=== PATIENT | male | born 1955 | race Two or more races ===

== ENCOUNTER 2016-08-07 11:14 | Inpatient (IN) | payer MEDICARE ==
[~2016-08-07] VITALS: Ht 170.2 cm; Wt 89.8 kg
[~2016-08-07 11:14] MED LIST: AMLO5TAB2 PO; CEPH500T PO; HYDR12.53 PO; LISI10TA2 PO; METF-620 PO; NPH,100V SQ
[2016-08-07 12:20] VITALS: BP 150/66
[2016-08-07] MEDS ORDERED: LORAZEPAM 1 MG TABLET. PO PRN ×2 (12:45)
[2016-08-07] MEDS ORDERED: THIAMINE IM 200 MG/2 ML VIAL. IM ONE (13:00)
[2016-08-07] MEDS ORDERED: FUROSEMIDE 40 MG/4 ML VIAL. IVP ONE (13:00)
[2016-08-07] MEDS: POTASSIUM CHLORIDE 20 MEQ TABLET.ER. PO SCH ×2 (14:10→17:43)
[2016-08-07] MEDS: SPIRONOLACTONE 25 MG TABLET PO SCH (14:11)
[2016-08-07] MEDS: amLODIPine BESYLATE 5 MG TABLET PO SCH (14:11)
--- NOTE | 2016-08-07 14:56 | HP ---
ADMIT DATE: CHIEF COMPLAINT: Leg and penile swelling. HISTORY OF PRESENT ILLNESS: A 61-year-old male with a long history of alcohol abuse and mild diabetes. He was last seen in 11/2015 with edema and was prescribed Lasix to take alternate days. He ran out of this ____ has not refilled the drug. He has had increasing swelling in his legs in the last 3-4 weeks, and then penile swelling, making it very difficult to urinate for the last 1-2 weeks. He denies fever, chills, vomiting, dysuria or other specific complaints. PAST MEDICAL HISTORY: He had some toe amputations from diabetes and diffuse vascular disease. He had an ankle surgery as well. MEDICATIONS: Including glyburide, metformin, and amlodipine. ALLERGIES: No known allergies. SOCIAL HISTORY: Drinks at least ____ 6-12 beers daily for the last several years. , unemployed, nonsmoker. FAMILY HISTORY: Unremarkable. REVIEW OF SYSTEMS: No other symptoms. OBJECTIVE: ENT: Sclerae nonicteric. Otherwise, unremarkable. NECK: Revealed no carotid bruits, nodes, thyroid enlargement or masses. LUNGS: Decreased breath sounds at the bases, but otherwise here good breath sounds. No dullness is noted or wheezing. CARDIOVASCULAR: Regular rate, heart tones distant, rate is 70-80. No S3 is heard. ABDOMEN: Very protuberant with positive fluid wave and periumbilical hernia, reducible, consistent with ascites, no abdominal wall edema is noted. GENITOURINARY AND RECTAL: He has diffuse penile edema, cannot identify the glands consistent with paraphimosis, no lesions are seen. EXTREMITIES: 2+ to 3+ edema in all lower extremities bilaterally. Pedal pulses are diminished, but the feet are warm. No overt ischemic changes are noted. NEUROLOGIC: Physiologic, except for decrease sensation in the feet. ASSESSMENT: 1. 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 2. Ascites and peripheral edema, likely secondary to #1. 3. Well controlled diabetes mellitus and hypertension. 4. Chronic alcohol abuse. PLAN: IV Lasix, Aldactone, echocardiography and renal sonogram to evaluate the need for Parisi catheterization or suprapubic intervention. Given the level of edema present in his penile skin. LEANN BOB MD DR: Deejay JOB#: [id number] / [id number]
[2016-08-07 15:00] VITALS: BP 124/71
[2016-08-07] MEDS ORDERED: GLYB5TAB3 PO (15:36)
[2016-08-07] MEDS: FUROSEMIDE INJ 100 MG in IV NORMAL SALINE 100ML 100 ML IV PRN (15:49)
[2016-08-07] MEDS: METFORMIN 1,000 MG TABLET PO SCH (17:43)
[2016-08-07 19:29] LABS: BASO # 0.1 x10^3/uL (0.0-0.2); BASO % 1 % (0-3); EOS % 3 % (0-3); HEMATOCRIT 32.1 % (39.0-53.0); HEMOGLOBIN 10.9 g/dL (13.0-17.5); LYMPH # 0.7 x10^3/uL (1.0-4.8); LYMPH % 7 % (24-48); MEAN CORPUSCULAR HEMOGLOBIN 30 pg (25-35); MEAN CORPUSCULAR HGB CONC 34 g/dL (31-37); MEAN CORPUSCULAR VOLUME 87 fL (79-100); MONO % 12 % (0-9); NEUT % 77 % (31-73); PLATELET COUNT 428 x10^3/uL (140-400); RED BLOOD COUNT 3.68 x10^6/uL (4.30-5.70); RED CELL DISTRIBUTION WIDTH 15.3 % (11.5-14.5)
[2016-08-07 19:37] LABS: CALCIUM 8.3 mg/dL (8.5-10.1); CREATININE 0.9 mg/dL (0.7-1.3); GFR 86.1; POTASSIUM 4.2 mmol/L (3.5-5.1)
[2016-08-07 19:40] VITALS: BP 150/83
[2016-08-07 20:15] LABS: BILIRUBIN,URINE NEGATIVE (NEG); GLUCOSE,URINE NEGATIVE (NEG); NITRITE,URINE NEGATIVE (NEG); PH,URINE 6.5; PROTEIN,URINE 30 mg/dL (NEG-TRACE); UROBILINOGEN,URINE 0.2 mg/dL (0.2 mg/dL)
[2016-08-07 20:27] LABS: BACTERIA,URINE 0 /HPF (0-FEW); WBC,URINE 0 /HPF (0-4)
[2016-08-07 23:05] VITALS: BP 163/91
[2016-08-08] MEDS: FUROSEMIDE INJ 100 MG in IV NORMAL SALINE 100ML 100 ML IV PRN (00:48)
[2016-08-08 03:05] VITALS: BP 165/85
[2016-08-08 07:00] VITALS: BP 145/83
--- NOTE | 2016-08-08 08:08 | PDOC ---
Provider Note Provider Note vss, no new sxs- wts variable, penile edema gone, still leg edema, ascites- bmp ok but low Na+- echo pending- cont lasix drip, spironolactone as i suspect edema is more cirrhosis than cardiogenic- albumin pending LEANN BOB MD August 08, 2016 08:08
[2016-08-08] MEDS: SPIRONOLACTONE 25 MG TABLET PO SCH (08:36)
[2016-08-08] MEDS: amLODIPine BESYLATE 5 MG TABLET PO SCH (08:36)
[2016-08-08] MEDS: METFORMIN 1,000 MG TABLET PO SCH ×2 (08:36→17:50)
[2016-08-08] MEDS: MULTIVITAMIN with MINERAL TABLET. PO SCH (08:36)
[2016-08-08] MEDS: POTASSIUM CHLORIDE 20 MEQ TABLET.ER. PO SCH ×3 (08:37→17:50)
[2016-08-08] MEDS ORDERED: GLIMEPIRIDE 2 MG TABLET. PO SCH (09:00)
[2016-08-08 11:00] VITALS: BP 166/94
[2016-08-08 15:00] VITALS: BP 140/72
--- NOTE | 2016-08-08 15:33 | CARD ---
APPROVED REPORT EXAM: Two-dimensional and M-mode echocardiogram with Doppler and color Doppler. Other Information Quality : GoodHR: 85bpm Rhythm : NSR INDICATION Edema 2D DIMENSIONS RVDd3.1 (2.9-3.5cm)Left Atrium(2D)4.6 (1.6-4.0cm) IVSd1.0 (0.7-1.1cm)Aortic Root(2D)2.6 (2.0-3.7cm) LVDd5.6 (3.9-5.9cm)LVOT Diameter2.4 (1.8-2.4cm) PWd0.9 (0.7-1.1cm)LVDs3.9 (2.5-4.0cm) FS (%) 29.2 %SV83.8 ml LVEF(%)55.4 (>50%) M-Mode DIMENSIONS Aortic Cusp Exc2.06 (1.5-2.0cm) Mitral Valve MV E Kryxntfu13.8cm/sMV E Peak Gr.6mmHg MV DECEL [id number] A Heujivyf235.7cm/s MV E Mean Gr.4mmHgE/A Ratio0.9 TDI Lateral E' P. V12.24cm/sMedial E' P. V10.86cm/s E/Lateral E'7.9E/Medial E'8.9 Tricuspid Valve TR P. Opipfpvx041ye/sTR Peak Gr.44mmHg Pulmonary Vein S1 Esuwainw61.3cm/sS2 Casirtll98.60cm/s D2 Xxrytahj51.6cm/sPVa [id number] LEFT VENTRICLE The left ventricle is normal size. There is normal left ventricular wall thickness. The left ventricu lar systolic function is normal. The Ejection Fraction is 60-65%. There is normal LV segmental wall m otion. Transmitral Doppler flow pattern is Grade I-abnormal relaxation pattern. RIGHT VENTRICLE The right ventricle is normal size. There is normal right ventricular wall thickness. The right ventr icular systolic function is normal. ATRIA The left atrium size is normal. The right atrium size is normal. The interatrial septum is intact wit h no evidence for an atrial septal defect or patent foramen ovale as noted on 2-D or Doppler imaging. AORTIC VALVE The aortic valve is mildly sclerotic. The aortic valve is trileaflet. Doppler and Color Flow revealed no significant aortic regurgitation. There is no significant aortic valvular stenosis. MITRAL VALVE Mitral annular calcification is moderate. The mitral valve leaflets are thickened. There is no eviden ce of mitral valve prolapse. There is no mitral valve stenosis. Doppler and Color Flow revealed trace mitral regurgitation. TRICUSPID VALVE Doppler and Color Flow revealed mild tricuspid regurgitation. The pulmonary artery systolic pressure is estimated at 47 mmHg. There is moderate pulmonary hypertension. PULMONIC VALVE The pulmonic valve is not well visualized. Doppler and Color Flow revealed trace pulmonic valvular re gurgitation. There is no pulmonic valvular stenosis. GREAT VESSELS The aortic root is normal in size. The ascending aorta is normal in size. The pulmonary artery is nor mal. The IVC was obscured, unable to assess. PERICARDIAL EFFUSION There is no evidence of significant pericardial effusion. Critical Notification Critical Value: No <Conclusion> The left ventricular systolic function is normal. The Ejection Fraction is 60-65%. There is normal LV segmental wall motion. Trace mitral regurgitation. Mild tricuspid regurgitation. The pulmonary artery systolic pressure is estimated at 47 mmHg. There is no evidence of significant pericardial effusion.
[2016-08-08 19:46] VITALS: BP 156/86
[2016-08-08 23:30] VITALS: BP 168/85
[2016-08-09] MEDS: FUROSEMIDE INJ 100 MG in IV NORMAL SALINE 100ML 100 ML IV PRN (00:23)
[2016-08-09 03:27] VITALS: BP 166/90
[2016-08-09 06:55] VITALS: BP 170/71
--- NOTE | 2016-08-09 08:15 | PDOC ---
Provider Note Provider Note edema down vss, good output- ascites seems less also- lab pending- echo all ok- suspect this is hepatic in origin re edema, bid lasix now in place of LEANN Boogie MD August 09, 2016 08:15
[2016-08-09] MEDS: MULTIVITAMIN with MINERAL TABLET. PO SCH (08:49)
[2016-08-09] MEDS: POTASSIUM CHLORIDE 20 MEQ TABLET.ER. PO SCH ×3 (08:50→17:09)
[2016-08-09] MEDS: amLODIPine BESYLATE 5 MG TABLET PO SCH (08:50)
[2016-08-09] MEDS: SPIRONOLACTONE 25 MG TABLET PO SCH (08:50)
[2016-08-09] MEDS: GLIMEPIRIDE 2 MG TABLET. PO SCH (08:51)
[2016-08-09] MEDS: METFORMIN 1,000 MG TABLET PO SCH ×2 (08:52→17:09)
[2016-08-09] MEDS: FUROSEMIDE 40 MG/4 ML VIAL. IVP SCH ×2 (08:53→13:48)
[2016-08-09 10:40] VITALS: BP 177/95
[2016-08-09 14:51] VITALS: BP 156/84
[2016-08-09 14:57] LABS: ALBUMIN 2.5 g/dL (3.4-5.0); ALBUMIN/GLOBULIN RATIO 0.5 (1.0-1.7); CALCIUM 8.3 mg/dL (8.5-10.1); CREATININE 1.1 mg/dL (0.7-1.3); GFR 68.3; POTASSIUM 3.6 mmol/L (3.5-5.1); TOTAL BILIRUBIN 0.6 mg/dL (0.2-1.0); TOTAL PROTEIN 7.1 g/dL (6.4-8.2)
[2016-08-09 19:50] VITALS: BP 171/88
[2016-08-09 23:29] VITALS: BP 176/92
[2016-08-10 02:45] VITALS: BP 159/83
[2016-08-10 06:50] VITALS: BP 174/91
[2016-08-10] MEDS: METFORMIN 1,000 MG TABLET PO SCH (08:32)
[2016-08-10] MEDS: amLODIPine BESYLATE 5 MG TABLET PO SCH (08:33)
[2016-08-10] MEDS: SPIRONOLACTONE 25 MG TABLET PO SCH (08:33)
[2016-08-10] MEDS: MULTIVITAMIN with MINERAL TABLET. PO SCH (08:34)
[2016-08-10] MEDS: POTASSIUM CHLORIDE 20 MEQ TABLET.ER. PO SCH ×2 (08:34→14:01)
[2016-08-10] MEDS: GLIMEPIRIDE 2 MG TABLET. PO SCH (08:34)
[2016-08-10] MEDS: FUROSEMIDE 40 MG/4 ML VIAL. IVP SCH ×3 (08:35→13:35)
--- NOTE | 2016-08-10 08:42 | DISCH ---
DISCHARGE INSTRUCTIONS Condition on Discharge Condition on Discharge: Stable Activity After Discharge Activity Instructions for Disc: No restrictions Diet after Discharge Diet after Discharge: Diabetic No Calorie Level Follow-Up Follow up with: as scheduled LEANN BOB MD August 10, 2016 08:42
--- NOTE | 2016-08-10 08:46 | PDOC ---
Provider Note Provider Note [id number] LEANN BOB MD August 10, 2016 08:46
--- NOTE | 2016-08-10 10:26 | DS ---
DATE OF DISCHARGE: 08/10/2016 HOSPITAL SUMMARY: A 61-year-old male with known diabetes admitted with diffuse lower extremity edema, penile edema, and moderately severe ascites. He is a heavy alcohol drinker and has had edema in the past. Chemistry profile showed a sodium of 125 on admission, it came up to 133, and potassium was normal as was renal function. Albumin was low at 2.5. TSH was normal at 2.2. Hemoglobin A1c was low at 5.9, and liver function tests were unremarkable. CBC was normal. Urine was clear except for small amount of protein. He was diuresed with IV Lasix drip and lost about 20 pounds of weight, and his penile edema is gone. Ascites is reduced, and lower extremity edema is much better. He is able to be transitioned to outpatient care at this point. FINAL DIAGNOSES: 1. Anasarca secondary to alcoholic cirrhosis. 2. Hypoalbuminemia leading to edema. 3. Hyponatremia secondary to alcohol intake, resolved. OPERATIONS, PROCEDURES, COMPLICATIONS, AND CONSULTATIONS: None. DISPOSITION: He will take Aldactone 50 mg daily, Lasix 40 mg daily, potassium chloride 10 mEq twice a day, and home medications remain the same. We will reduce his glyburide dose or perhaps stop it when he comes into the office in 1 week. Complete avoidance of alcohol was recommended as there is no longer a safe amount of beer as he is a heavy beer drinker. Office followup with weight checks in 1 week. PROGNOSIS: Poor unless he abstains from alcohol. LEANN BOB MD DR: DAKOTA/sweta JOB#: [id number] / [id number]
[2016-08-10 10:59] VITALS: BP 171/97
[2016-08-10 15:30] VITALS: BP 173/92
== END 2016-08-10 18:08 | disposition home or self-care (01) | DRG 433 ==
LOC: 6 SOUTH 11:48
PROVIDERS: ADMIT Family Medicine; ATTEND Family Medicine
DX: K70.31 Alcoholic cirrhosis of liver with ascites (principal); E87.1 Hypo-osmolality and hyponatremia; E44.0 Moderate protein-calorie malnutrition; E11.9 Type 2 diabetes mellitus without complications; I10 Essential (primary) hypertension; N48.89 Other specified disorders of penis; E88.09 Other disorders of plasma-protein metabolism, not elsewhere classified; R33.9 Retention of urine, unspecified; F10.10 Alcohol abuse, uncomplicated; Y90.9 Presence of alcohol in blood, level not specified; Z89.429 Acquired absence of other toe(s), unspecified side; Z68.28 Body mass index [BMI] 28.0-28.9, adult; Z79.899 Other long term (current) drug therapy
CPT/HCPCS: 36415; 80048; 80053; 81001; 82947; 83036; 84443; 85027; 93306; J1940

== ENCOUNTER 2016-10-12 10:37 | Inpatient (IN) | payer MEDICARE ==
[~2016-10-12] VITALS: Ht 170.2 cm; Wt 79.4 kg
[2016-10-12] VITALS (10 sets, daily range): BP systolic 93–130; BP diastolic 59–75
[~2016-10-12 10:37] MED LIST changes: +GLYB5TAB3 PO
[2016-10-12] MEDS: POTASSIUM CL 20MEQ D5-0.45NACL 1,000 ML IV SCH ×2 (11:45→19:45)
[2016-10-12] MEDS ORDERED: VANCOMYCIN 1 GM in IV NORMAL SALINE 250ML 250 ML IV ONE (11:45)
[2016-10-12] MEDS ORDERED: PIPERACILLIN/TAZOBACTAM 3.375 GM in IV NORMAL SALINE 50ML 50 ML IV SCH (12:00)
[2016-10-12] MEDS ORDERED: IV RINGERS,LACTATED 1000ML 1,000 ML IV SCH (12:42)
[2016-10-12] MEDS ORDERED: ONDANSETRON PF 4 MG/2 ML VIAL. IV PRN ×3 (12:45→16:30)
[2016-10-12] MEDS ORDERED: PROCHLORPERAZINE 10 MG/2 ML VIAL. IV PRN (12:45)
[2016-10-12] MEDS ORDERED: MORPHINE SULFATE 2 MG/ML DISP.SYRIN. IV PRN (12:45)
[2016-10-12] MEDS ORDERED: LIDOCAINE 1% 1 ML SYRINGE. ID PRN (12:45)
[2016-10-12] MEDS ORDERED: HYDROmorphone 2 MG/ML VIAL IV PRN (12:45)
[2016-10-12] MEDS ORDERED: INSULIN ASPART 100 UNIT/ML 10ML VIAL. SQ ONE (12:45)
[2016-10-12] MEDS ORDERED: fentaNYL PF VIAL 100 MCG/2 ML VIAL IV PRN ×2 (12:45)
[2016-10-12] MEDS ORDERED: SEVOFLURANE > 120 MINUTES. IH ONE (12:46)
[2016-10-12] MEDS ORDERED: fentaNYL PF VIAL 100 MCG/2 ML VIAL ONE ×2 (12:47→16:09)
[2016-10-12] MEDS ORDERED: KETOROLAC 60 MG/2 ML INJ FOR OR. ONE (12:47)
[2016-10-12] MEDS ORDERED: GLYCOPYRROLATE 1 MG/5 ML VIAL. ONE (12:47)
[2016-10-12] MEDS ORDERED: PROPOFOL 20 ML IV ONE (12:48)
[2016-10-12] MEDS ORDERED: ONDANSETRON PF 4 MG/2 ML VIAL. ONE (12:48)
[2016-10-12] MEDS ORDERED: LIDOCAINE 2% PF Vial for OR 5 ML VIAL. ONE (12:48)
[2016-10-12] MEDS ORDERED: SUCCINYLCHOLINE 200 MG/10 ML VIAL. ONE (12:48)
[2016-10-12] MEDS ORDERED: DEXAMETHASONE SOD PHOS 20 MG/5 ML VIAL. ONE (12:48)
[2016-10-12] MEDS ORDERED: NEOSTIGMINE METHYLSULFATE 5 MG/5 ML SYRINGE. ONE (12:48)
[2016-10-12] MEDS ORDERED: INSULIN ASPART 300 UNITS/3 ML INSULN.PEN SQ ONE (13:00)
[2016-10-12] MEDS ORDERED: DEXTROSE 50% 25 GM / 50ML DISP.SYRIN. IV PRN (13:00)
[2016-10-12 13:16] LABS: BASO % 0 % (0-3); EOS % 0 % (0-3); HEMATOCRIT 34.1 % (39.0-53.0); HEMOGLOBIN 12.1 g/dL (13.0-17.5); LYMPH # 0.9 x10^3/uL (1.0-4.8); LYMPH % 6 % (24-48); MEAN CORPUSCULAR HEMOGLOBIN 29 pg (25-35); MEAN CORPUSCULAR HGB CONC 35 g/dL (31-37); MEAN CORPUSCULAR VOLUME 83 fL (79-100); MONO % 9 % (0-9); NEUT % 85 % (31-73); PLATELET COUNT 313 x10^3/uL (140-400); RED BLOOD COUNT 4.12 x10^6/uL (4.30-5.70); RED CELL DISTRIBUTION WIDTH 15.2 % (11.5-14.5); WHITE BLOOD COUNT 14.8 x10^3/uL (4.0-11.0)
[2016-10-12 13:26] LABS: INR 1.4 (0.8-1.1); PROTHROMBIN TIME PATIENT 16.2 SEC (11.7-14.0)
[2016-10-12 13:30] LABS: CALCIUM 8.5 mg/dL (8.5-10.1); CREATININE 5.9 mg/dL (0.7-1.3); GFR 9.8; POTASSIUM 5.6 mmol/L (3.5-5.1)
--- NOTE | 2016-10-12 13:36 | RAD ---
Indication abdominal pain and vomiting. Axial images through the abdomen and pelvis were obtained. No IV or gastrointestinal contrast was administered. No prior imaging of the abdomen or pelvis is available. There are groundglass opacities in the lower lobes. The etiology is unclear. Some of this may be chronic. Inflammation is not entirely excluded. There is no pleural fluid in either lung. Some coronary artery calcification is noted. A dominant soft tissue mass is not seen in the visualized lower lung nugent. The stomach is markedly distended. Small bowel loops are significantly distended with the distal small bowel loops collapsed. There is a ventral abdominal wall hernia in the lower abdominal wall. The afferent loop is dilated and the efferent loop is collapsed. The high-grade mechanical small bowel obstruction is secondary to the incarcerated ventral abdominal hernia. The liver and spleen appear unremarkable. The pancreas adrenal glands and kidneys appear normal. No additional finding in the abdomen is seen. No additional finding is seen in the pelvis. Preliminary results were communicated to Uzma, a nurse in Dr. Nieves's office, at the time of dictation IMPRESSION: Incarcerated ventral abdominal wall hernia causing high-grade mechanical small bowel obstruction. PQRS Compliance Statement: One or more of the following individualized dose reduction techniques were utilized for this examination: 1. Automated exposure control 2. Adjustment of the mA and/or kV according to patient size 3. Use of iterative reconstruction technique
[2016-10-12 13:41] LABS: ALBUMIN 3.2 g/dL (3.4-5.0); ALBUMIN/GLOBULIN RATIO 0.6 (1.0-1.7); TOTAL PROTEIN 8.6 g/dL (6.4-8.2)
[2016-10-12] MEDS ORDERED: SPIR50TA2 PO (13:51)
[2016-10-12] MEDS ORDERED: METF-620 PO (13:51)
[2016-10-12] MEDS ORDERED: PNEUMOC CONJ VACC 23-VALENT 0.5 ML VIAL. VAX IM ONE (14:00)
[2016-10-12] MEDS ORDERED: PHENYLEPHRINE in 0.9% NACL PF 1 MG/10 ML DISP.SYRIN. IV ONE (14:40)
[2016-10-12] MEDS ORDERED: MORPHINE SULFATE 10 MG/ML VIAL. ONE (14:58)
[2016-10-12 15:20] LABS: OVALOCYTES OCC; PLT ESTIMATE ADEQUATE (ADEQUATE); POLYCHROMASIA SLIGHT; TARGET CELLS OCC; TOXIC GRANULATION SLIGHT
[2016-10-12] MEDS ORDERED: diphenhydrAMINE 50 MG/ML VIAL IV PRN (16:30)
[2016-10-12] MEDS ORDERED: 0.9 % SODIUM CHLORIDE 10 ML DISP.SYRIN. IV PRN (16:30)
--- NOTE | 2016-10-12 16:33 | RAD ---
Indication postop KUB done in the OR. Protocol study. A single view of the abdomen was obtained. There is a drain seen in the pelvis. Vascular calcification is noted. A nasogastric tube has its tip near the antrum of the stomach. No unexpected finding is seen. IMPRESSION: No unexpected finding seen on postop KUB
--- NOTE | 2016-10-12 16:38 | PDOC ---
BRIEF OPERATIVE NOTE Date: Oct 12, 2016 Pre-Op Diagnosis SBO 2/2 incarcerated umbilical hernia Post-Op Diagnosis same with strangulation Procedure Performed ex lap, SBR, primary repair of umbilical hernia Surgeon Wong CHANEY Anesthesia Type: General Blood Loss 50cc IV Fluid 2000cc Urine Output 115cc Specimens Obtained segment of small bowel, 3400cc from NG Findings gangrenous small bowel in umbilical hernia, advanced cirrhosis BREN MENDIOLA MD Oct 12, 2016 16:38
[2016-10-12] MEDS ORDERED: PHENOL ORAL SPRAY 177ML BOTTLE. PO PRN (16:45)
[2016-10-12] MEDS ORDERED: BENZOCAINE/MENTHOL LOZENGE. PO PRN (16:45)
[2016-10-12] MEDS ORDERED: POTASSIUM CL 20MEQ-0.45% NACL 1,000 ML IV SCH (17:00)
[2016-10-12] MEDS: INSULIN ASPART 300 UNITS/3 ML INSULN.PEN SQ SCH (17:00)
[2016-10-12] MEDS: IV 1/2 NORMAL SALINE 1,000 ML IV SCH (17:00)
[2016-10-12] MEDS ORDERED: IV DEXTROSE 5% 250 ML BAG. IV ONE (17:24)
[2016-10-12 21:44] LABS: HEMATOCRIT 33.1 % (39.0-53.0); HEMOGLOBIN 11.4 g/dL (13.0-17.5)
[2016-10-12] MEDS ORDERED: SILVER NITRATE STICK TP ONE (21:45)
[2016-10-12 21:55] LABS: INR 1.4 (0.8-1.1); PROTHROMBIN TIME PATIENT 16.6 SEC (11.7-14.0)
[2016-10-12] MEDS ORDERED: LIDOCAINE 1%/EPI 1:200,000 30 ML VIAL. INJ ONE (22:00)
[2016-10-12] MEDS ORDERED: LIDOCAINE 1%/EPI 1:100,000 20 ML VIAL. INJ ONE (22:00)
--- NOTE | 2016-10-12 22:15 | PDOC ---
Provider Note Provider Note SURG called by RN with concern about bleeding VARUN bulb is full, output is serosanguineous fluid some bleeding from the incision edges treated with 1% lidocaine with epinephrine, silver nitrate sticks, dressed with surgi-dada and 1" nu-gauze hemostasis present pt tolerated well labs show stable Hb, & INR VSS BREN MENDIOLA MD Oct 12, 2016 22:15
[2016-10-12] MEDS: PIPERACILLIN/TAZOBACTAM 2.25 GM in IV NORMAL SALINE 50ML 50 ML IV SCH (22:34)
[2016-10-12] MEDS ORDERED: SURGICEL FIBRILLAR 1X2 EACH. TP ONE (23:30)
[2016-10-13 03:00] VITALS: BP 108/64
[2016-10-13] MEDS: IV 1/2 NORMAL SALINE 1,000 ML IV SCH ×2 (03:00→11:36)
[2016-10-13] MEDS: POTASSIUM CL 20MEQ D5-0.45NACL 1,000 ML IV SCH (04:06)
[2016-10-13] MEDS: PIPERACILLIN/TAZOBACTAM 2.25 GM in IV NORMAL SALINE 50ML 50 ML IV SCH ×3 (06:05→22:15)
--- NOTE | 2016-10-13 07:16 | PDOC2 ---
CONSULT Date of Consult Date of Consult DATE: 10/12/16 TIME: 13:30 Reason for Consult Reason for Consult: small bowel obstruction 2/2 incarcerated umbilical hernia Referring Physician Referring Physician: ERIC Identification/Chief Complaint Chief Complaint abdominal pain Problems: Source Source: Chart review, Patient History of Present Illness Reason for Visit: "Konstantin" is a 61 yo gentleman with a long history of umbilical fullness. Recently he began having increased pain, nausea and vomiting. He is admitted with SBO thought to be 2/2 his incarcerated umbilical hernia. Past Medical History Cardiovascular: No pertinent hx Pulmonary: No pertinent hx Past Surgical History Past Surgical History: No pertinent history Current Medications Current Medications Current Medications Piperacillin Sod/ Tazobactam Sod 3.375 gm/Sodium Chloride 50 ml @ 100 mls/hr Q6HRS IV Last administered on 10/12/16 14:05; Start 10/12/16 at 12:00; Stop 10/12 at 16:42; Status DC Potassium Chloride/Dextrose/ Sod Cl 1,000 ml @ 125 mls/hr Q8H IV Last administered on 10/13/16 04:06; Start 10/12/16 at 11:45 Vancomycin HCl 1 gm/Sodium Chloride 250 ml @ 250 mls/hr 1X ONCE IV Last administered on 10/12/16 14:46; Start 10/12/16 at 11:45; Stop 10/12/16 at 12:44; Status DC Pneumococcal Polyvalent Vaccine (Pneumovax 23) 0.5 ml ONCE ONCE VAX IM ; Start 10/12/16 at 14:00; Stop 10/12/16 at 14:01; Status DC Ondansetron HCl (Zofran) 4 mg PRN Q6HRS PRN IV NAUSEA/VOMITING; Start 10/12/16 at 12:45; Stop 10/13/16 at 12:44 Fentanyl Citrate (Fentanyl 2ml Vial) 25 mcg PRN Q5MIN PRN IV MILD PAIN; Start 10/12/16 at 12:45; Stop 10/13/16 at 12:44 Fentanyl Citrate (Fentanyl 2ml Vial) 50 mcg PRN Q5MIN PRN IV MODERATE PAIN; Start 10/12/16 at 12:45; Stop 10/13/16 at 12:44 Morphine Sulfate 1 mg PRN Q10MIN PRN IV SEVERE PAIN; Start 10/12/16 at 12:45; Stop 10/13/16 at 12:44 Ringer's Solution 1,000 ml @ 30 mls/hr Q24H IV Last administered on 10/12/16t 13:30; Start 10/12/16 at 12:42; Stop 10/13/16 at 00:41; Status DC Lidocaine HCl 2 ml PRN 1X PRN ID PRIOR TO IV START; Start 10/12/16 at 12:45; Stop 10/13/16 at 12:44 Hydromorphone HCl (Dilaudid) 0.5 mg PRN Q10MIN PRN IV SEV PAIN, Second choice; Start 10/12/16 at 12:45; Stop 10/12/16 at 13:00; Status DC Prochlorperazine Edisylate (Compazine) 5 mg PACU PRN PRN IV NAUSEA, MRX1; Start 10/12/16 at 12:45; Stop 10/13/16 at 12:44 Insulin Aspart (NovoLOG VIAL) 6 unit 1X ONCE SQ ; Start 10/12/16 at 12:45; Stop 10/12/16 at 12:46; Status DC Sevoflurane (Ultane) 90 ml STK-MED ONCE IH ; Start 10/12/16 at 12:46; Stop at 12:47; Status DC Ketorolac Tromethamine (Toradol For Or Only) 60 mg STK-MED ONCE .ROUTE ; Start 10/12/16 at 12:47; Stop 10/12/16 at 12:48; Status DC Fentanyl Citrate (Fentanyl 2ml Vial) 100 mcg STK-MED ONCE .ROUTE ; Start at 12:47; Stop 10/12/16 at 12:48; Status DC Glycopyrrolate (Robinul) 1 mg STK-MED ONCE .ROUTE ; Start 10/12/16 at 12:47; Stop 10/12/16 at 12:48; Status DC Neostigmine Methylsulfate 5 mg STK-MED ONCE .ROUTE ; Start 10/12/16 at 12:48; Stop 10/12/16 at 12:49; Status DC Succinylcholine Chloride (Anectine) 200 mg STK-MED ONCE .ROUTE ; Start 10/12/16 at 12:48; Stop 10/12/16 at 12:49; Status DC Propofol 20 ml @ As Directed STK-MED ONCE IV ; Start 10/12/16 at 12:48; Stop 10/12 at 12:49; Status DC Ondansetron HCl (Zofran) 4 mg STK-MED ONCE .ROUTE ; Start 10/12/16 at 12:48; Stop 10/12/16 at 12:49; Status DC Dexamethasone Sodium Phosphate (Decadron) 20 mg STK-MED ONCE .ROUTE ; Start 10/12 at 12:48; Stop 10/12/16 at 12:49; Status DC Lidocaine HCl (Lidocaine Pf 2% Vial) 5 ml STK-MED ONCE .ROUTE ; Start 10/12/16 at 12:48; Stop 10/12/16 at 12:49; Status DC Ondansetron HCl (Zofran) 4 mg PRN Q6HRS PRN IV NAUSEA/VOMITING; Start 10/12/16 at 13:00 Hydromorphone HCl (Dilaudid) 0.6 mg PRN Q3HRS PRN IVP PAIN; Start 10/12/16 at 13 :00 Insulin Aspart (NovoLOG) 8 units 1X ONCE SQ Last administered on 10/12/16t 13: 50; Start 10/12/16 at 13:00; Stop 10/12/16 at 13:02; Status DC Insulin Aspart (NovoLOG) 0-7 UNITS TIDWMEALS SQ ; Start 10/12/16 at 17:00 Dextrose (Dextrose 50%-Water Syringe) 12.5 gm PRN Q15MIN PRN IV SEE COMMENTS; Start 10/12/16 at 13:00 Phenylephrine HCl 1 mg STK-MED ONCE IV ; Start 10/12/16 at 14:40; Stop 10/12/16 at 14:41; Status DC Morphine Sulfate 10 mg STK-MED ONCE .ROUTE ; Start 10/12/16 at 14:58; Stop at 14:59; Status DC Fentanyl Citrate (Fentanyl 2ml Vial) 100 mcg STK-MED ONCE .ROUTE ; Start at 16:09; Stop 10/12/16 at 16:10; Status DC Diphenhydramine HCl (Benadryl) 25 mg PRN Q6HRS PRN IV ITCHING; Start 10/12/16 at 16:30 Enoxaparin Sodium (Lovenox 30mg Syringe) 30 mg Q24H SQ ; Start 10/13/16 at 09:00 Sodium Chloride (Normal Saline Flush) 3 ml QSHIFT PRN IV AFTER MEDS AND BLOOD DRAWS; Start 10/12/16 at 16:30 Potassium Chloride/Sodium Chloride 1,000 ml @ 100 mls/hr Q10H IV ; Start at 17:00; Stop 10/12/16 at 17:00; Status DC Hydromorphone HCl 30 ml @ 0 mls/hr CONT PRN PRN IV PROTOCOL Last administered on 10/12/16 17:55; Start 10/12/16 at 16:30 Ondansetron HCl (Zofran) 4 mg PRN Q6HRS PRN IV NAUESA, 1ST CHOICE; Start at 16:30 Throat Lozenges (Chloraseptic) 1 spray PRN Q2HR PRN PO SORE THROAT; Start at 16:45 Throat Lozenges (Cepacol Sore Throat Lozenge) 1 kathe PRN Q2HRS PRN PO SORE THROAT; Start 10/12/16 at 16:45 Piperacillin Sod/ Tazobactam Sod 2.25 gm/Sodium Chloride 50 ml @ 100 mls/hr Q8HRS IV Last administered on 10/13/16 06:05; Start 10/12/16 at 22:00 Sodium Chloride 1,000 ml @ 100 mls/hr Q10H IV Last administered on 10/13/16 03 :00; Start 10/12/16 at 17:00 Lidocaine/ Epinephrine (Xylocaine 1%-Epi 1:100,000) 20 ml 1X ONCE INJ Last administered on 10/12/16 22:00; Start 10/12/16 at 22:00; Stop 10/12/16 at 22:01; Status DC Lidocaine/ Epinephrine (Xylocaine 1%-Epi 1:200,000) 30 ml 1X ONCE INJ ; Start 10/12/16 at 22:00; Stop 10/12/16 at 22:01; Status Cancel Silver Nitrate/ Potassium Nitrate 1 each 1X ONCE TP Last administered on 21:45; Start 10/12/16 at 21:45; Stop 10/12/16 at 21:46; Status DC Cellulose 1 each 1X ONCE TP Last administered on 10/12/16t 23:11; Start at 23:30; Stop 10/12/16 at 23:31; Status DC Active Scripts Active Reported Spironolactone 50 Mg Tablet 1 Tab PO BID Metformin Hcl 1,000 Mg Tablet 1,000 Mg PO [id number] Amlodipine Besylate 5 Mg Tablet 1 Tab PO DAILY Allergies Allergies: Coded Allergies: No Known Drug Allergies (Unverified , 11/12/13) ROS Gastrointestinal: Yes Nausea, Yes Vomiting, Yes Abdominal Pain Physical Exam General: Alert, Cooperative, No acute distress HEENT: Atraumatic, EOMI Lungs: Clear to auscultation Heart: Regular rate Abdomen: Other (distended, umbilical fullness that is TTP and non reducible) Neuro: Normal speech Vitals VITALS Vital Signs Date Time Temp Pulse Resp B/P (MAP) Pulse Ox O2 Delivery O2 Flow Rate FiO2 10/13/16 03:00 97.5 80 18 108/64 (79) 96 Nasal Cannula 2.0 97.5 Labs Labs Laboratory Tests Test 10/12/16 11:40 10/12/16 12:45 10/12/16 14:24 10/12/16 15:31 Glucose (Fingerstick) 355 mg/dL (70-99) 334 mg/dL (70-99) 261 mg/dL (70-99) White Blood Count 14.8 x10^3/uL (4.0-11.0) Red Blood Count 4.12 x10^6/uL (4.30-5.70) Hemoglobin 12.1 g/dL (13.0-17.5) Hematocrit 34.1 % (39.0-53.0) Mean Corpuscular Volume 83 fL (79-100) Mean Corpuscular Hemoglobin 29 pg (25-35) Mean Corpuscular Hemoglobin Concent 35 g/dL (31-37) Red Cell Distribution Width 15.2 % (11.5-14.5) Platelet Count 313 x10^3/uL (140-400) Neutrophils (%) (Auto) 85 % (31-73) Lymphocytes (%) (Auto) 6 % (24-48) Monocytes (%) (Auto) 9 % (0-9) Eosinophils (%) (Auto) 0 % (0-3) Basophils (%) (Auto) 0 % (0-3) Neutrophils # (Auto) 12.6 x10^3uL (1.8-7.7) Lymphocytes # (Auto) 0.9 x10^3/uL (1.0-4.8) Monocytes # (Auto) 1.3 x10^3/uL (0.0-1.1) Eosinophils # (Auto) 0.0 x10^3/uL (0.0-0.7) Basophils # (Auto) 0.0 x10^3/uL (0.0-0.2) Segmented Neutrophils % 79 % (35-66) Band Neutrophils % 4 % (0-9) Lymphocytes % 12 % (24-48) Monocytes % 5 % (0-10) Toxic Granulation Slight Platelet Estimate Adequate (ADEQUATE) Large Platelets Occ Polychromasia Slight Target Cells Occ Ovalocytes Occ Prothrombin Time 16.2 SEC (11.7-14.0) Prothromb Time International Ratio 1.4 (0.8-1.1) Sodium Level 123 mmol/L (136-145) Potassium Level 5.6 mmol/L (3.5-5.1) Chloride Level 77 mmol/L (98-107) Carbon Dioxide Level 37 mmol/L (21-32) Anion Gap 9 (6-14) Blood Urea Nitrogen 113 mg/dL (8-26) Creatinine 5.9 mg/dL (0.7-1.3) Estimated GFR (Cockcroft-Gault) 9.8 BUN/Creatinine Ratio 19 (6-20) Glucose Level 341 mg/dL (70-99) Lactic Acid Level 1.9 mmol/L (0.4-2.0) Calcium Level 8.5 mg/dL (8.5-10.1) Total Bilirubin 1.0 mg/dL (0.2-1.0) Aspartate Amino Transf (AST/SGOT) 18 U/L (15-37) Alanine Aminotransferase (ALT/SGPT) 20 U/L (16-63) Alkaline Phosphatase 180 U/L (46-116) Total Protein 8.6 g/dL (6.4-8.2) Albumin 3.2 g/dL (3.4-5.0) Albumin/Globulin Ratio 0.6 (1.0-1.7) Test 10/12/16 16:28 10/12/16 20:08 10/12/16 21:30 Glucose (Fingerstick) 146 mg/dL (70-99) 114 mg/dL (70-99) Hemoglobin 11.4 g/dL (13.0-17.5) Hematocrit 33.1 % (39.0-53.0) Prothrombin Time 16.6 SEC (11.7-14.0) Prothromb Time International Ratio 1.4 (0.8-1.1) Laboratory Tests Test 10/12/16 11:40 10/12/16 12:45 10/12/16 14:24 10/12/16 15:31 Glucose (Fingerstick) 355 mg/dL (70-99) 334 mg/dL (70-99) 261 mg/dL (70-99) White Blood Count 14.8 x10^3/uL (4.0-11.0) Red Blood Count 4.12 x10^6/uL (4.30-5.70) Hemoglobin 12.1 g/dL (13.0-17.5) Hematocrit 34.1 % (39.0-53.0) Mean Corpuscular Volume 83 fL (79-100) Mean Corpuscular Hemoglobin 29 pg (25-35) Mean Corpuscular Hemoglobin Concent 35 g/dL (31-37) Red Cell Distribution Width 15.2 % (11.5-14.5) Platelet Count 313 x10^3/uL (140-400) Neutrophils (%) (Auto) 85 % (31-73) Lymphocytes (%) (Auto) 6 % (24-48) Monocytes (%) (Auto) 9 % (0-9) Eosinophils (%) (Auto) 0 % (0-3) Basophils (%) (Auto) 0 % (0-3) Neutrophils # (Auto) 12.6 x10^3uL (1.8-7.7) Lymphocytes # (Auto) 0.9 x10^3/uL (1.0-4.8) Monocytes # (Auto) 1.3 x10^3/uL (0.0-1.1) Eosinophils # (Auto) 0.0 x10^3/uL (0.0-0.7) Basophils # (Auto) 0.0 x10^3/uL (0.0-0.2) Segmented Neutrophils % 79 % (35-66) Band Neutrophils % 4 % (0-9) Lymphocytes % 12 % (24-48) Monocytes % 5 % (0-10) Toxic Granulation Slight Platelet Estimate Adequate (ADEQUATE) Large Platelets Occ Polychromasia Slight Target Cells Occ Ovalocytes Occ Prothrombin Time 16.2 SEC (11.7-14.0) Prothromb Time International Ratio 1.4 (0.8-1.1) Sodium Level 123 mmol/L (136-145) Potassium Level 5.6 mmol/L (3.5-5.1) Chloride Level 77 mmol/L (98-107) Carbon Dioxide Level 37 mmol/L (21-32) Anion Gap 9 (6-14) Blood Urea Nitrogen 113 mg/dL (8-26) Creatinine 5.9 mg/dL (0.7-1.3) Estimated GFR (Cockcroft-Gault) 9.8 BUN/Creatinine Ratio 19 (6-20) Glucose Level 341 mg/dL (70-99) Lactic Acid Level 1.9 mmol/L (0.4-2.0) Calcium Level 8.5 mg/dL (8.5-10.1) Total Bilirubin 1.0 mg/dL (0.2-1.0) Aspartate Amino Transf (AST/SGOT) 18 U/L (15-37) Alanine Aminotransferase (ALT/SGPT) 20 U/L (16-63) Alkaline Phosphatase 180 U/L (46-116) Total Protein 8.6 g/dL (6.4-8.2) Albumin 3.2 g/dL (3.4-5.0) Albumin/Globulin Ratio 0.6 (1.0-1.7) Test 10/12/16 16:28 10/12/16 20:08 10/12/16 21:30 Glucose (Fingerstick) 146 mg/dL (70-99) 114 mg/dL (70-99) Hemoglobin 11.4 g/dL (13.0-17.5) Hematocrit 33.1 % (39.0-53.0) Prothrombin Time 16.6 SEC (11.7-14.0) Prothromb Time International Ratio 1.4 (0.8-1.1) Images Images CT abd/pelvis reviewed Assessment/Plan Assessment/Plan SBO 2/2 incarcerated umbilical hernia explore Explained risks including but not limited to bleeding, infection, possible need for bowel resection. He will proceed. Thanks for consult BREN MENDIOLA MD Oct 13, 2016 07:16
[2016-10-13 07:19] VITALS: BP 110/71
[2016-10-13] MEDS: INSULIN ASPART 300 UNITS/3 ML INSULN.PEN SQ SCH ×5 (07:47→16:30)
--- NOTE | 2016-10-13 08:21 | PDOC1 ---
History and Physical Date of Admission Date of Admission DATE: 10/12/16 TIME: 08:19 History of Present Illness History of Present Illness 3 days of emesis and lower abd apin Past Medical History Cardiovascular: No pertinent hx Pulmonary: No pertinent hx Past Surgical History Past Surgical History: No pertinent history Current Medications Current Medications Current Medications Piperacillin Sod/ Tazobactam Sod 3.375 gm/Sodium Chloride 50 ml @ 100 mls/hr Q6HRS IV Last administered on 10/12/16 14:05; Start 10/12/16 at 12:00; Stop 10/12 at 16:42; Status DC Potassium Chloride/Dextrose/ Sod Cl 1,000 ml @ 125 mls/hr Q8H IV Last administered on 10/13/16 04:06; Start 10/12/16 at 11:45; Stop 10/13/16 at 07:44; Status DC Vancomycin HCl 1 gm/Sodium Chloride 250 ml @ 250 mls/hr 1X ONCE IV Last administered on 10/12/16 14:46; Start 10/12/16 at 11:45; Stop 10/12/16 at 12:44; Status DC Pneumococcal Polyvalent Vaccine (Pneumovax 23) 0.5 ml ONCE ONCE VAX IM ; Start 10/12/16 at 14:00; Stop 10/12/16 at 14:01; Status DC Ondansetron HCl (Zofran) 4 mg PRN Q6HRS PRN IV NAUSEA/VOMITING; Start 10/12/16 at 12:45; Stop 10/13/16 at 12:44 Fentanyl Citrate (Fentanyl 2ml Vial) 25 mcg PRN Q5MIN PRN IV MILD PAIN; Start 10/12/16 at 12:45; Stop 10/13/16 at 12:44 Fentanyl Citrate (Fentanyl 2ml Vial) 50 mcg PRN Q5MIN PRN IV MODERATE PAIN; Start 10/12/16 at 12:45; Stop 10/13/16 at 12:44 Morphine Sulfate 1 mg PRN Q10MIN PRN IV SEVERE PAIN; Start 10/12/16 at 12:45; Stop 10/13/16 at 12:44 Ringer's Solution 1,000 ml @ 30 mls/hr Q24H IV Last administered on 10/12/16 13:30; Start 10/12/16 at 12:42; Stop 10/13/16 at 00:41; Status DC Lidocaine HCl 2 ml PRN 1X PRN ID PRIOR TO IV START; Start 10/12/16 at 12:45; Stop 10/13/16 at 12:44 Hydromorphone HCl (Dilaudid) 0.5 mg PRN Q10MIN PRN IV SEV PAIN, Second choice; Start 10/12/16 at 12:45; Stop 10/12/16 at 13:00; Status DC Prochlorperazine Edisylate (Compazine) 5 mg PACU PRN PRN IV NAUSEA, MRX1; Start 10/12/16 at 12:45; Stop 10/13/16 at 12:44 Insulin Aspart (NovoLOG VIAL) 6 unit 1X ONCE SQ ; Start 10/12/16 at 12:45; Stop 10/12/16 at 12:46; Status DC Sevoflurane (Ultane) 90 ml STK-MED ONCE IH ; Start 10/12/16 at 12:46; Stop at 12:47; Status DC Ketorolac Tromethamine (Toradol For Or Only) 60 mg STK-MED ONCE .ROUTE ; Start 10/12/16 at 12:47; Stop 10/12/16 at 12:48; Status DC Fentanyl Citrate (Fentanyl 2ml Vial) 100 mcg STK-MED ONCE .ROUTE ; Start at 12:47; Stop 10/12/16 at 12:48; Status DC Glycopyrrolate (Robinul) 1 mg STK-MED ONCE .ROUTE ; Start 10/12/16 at 12:47; Stop 10/12/16 at 12:48; Status DC Neostigmine Methylsulfate 5 mg STK-MED ONCE .ROUTE ; Start 10/12/16 at 12:48; Stop 10/12/16 at 12:49; Status DC Succinylcholine Chloride (Anectine) 200 mg STK-MED ONCE .ROUTE ; Start 10/12/16 at 12:48; Stop 10/12/16 at 12:49; Status DC Propofol 20 ml @ As Directed STK-MED ONCE IV ; Start 10/12/16 at 12:48; Stop 10/12 at 12:49; Status DC Ondansetron HCl (Zofran) 4 mg STK-MED ONCE .ROUTE ; Start 10/12/16 at 12:48; Stop 10/12/16 at 12:49; Status DC Dexamethasone Sodium Phosphate (Decadron) 20 mg STK-MED ONCE .ROUTE ; Start 10/12 at 12:48; Stop 10/12/16 at 12:49; Status DC Lidocaine HCl (Lidocaine Pf 2% Vial) 5 ml STK-MED ONCE .ROUTE ; Start 10/12/16 at 12:48; Stop 10/12/16 at 12:49; Status DC Ondansetron HCl (Zofran) 4 mg PRN Q6HRS PRN IV NAUSEA/VOMITING; Start 10/12/16 at 13:00 Hydromorphone HCl (Dilaudid) 0.6 mg PRN Q3HRS PRN IVP PAIN; Start 10/12/16 at 13 :00 Insulin Aspart (NovoLOG) 8 units 1X ONCE SQ Last administered on 10/12/16t 13: 50; Start 10/12/16 at 13:00; Stop 10/12/16 at 13:02; Status DC Insulin Aspart (NovoLOG) 0-7 UNITS TIDWMEALS SQ ; Start 10/12/16 at 17:00 Dextrose (Dextrose 50%-Water Syringe) 12.5 gm PRN Q15MIN PRN IV SEE COMMENTS; Start 10/12/16 at 13:00 Phenylephrine HCl 1 mg STK-MED ONCE IV ; Start 10/12/16 at 14:40; Stop 10/12/16 at 14:41; Status DC Morphine Sulfate 10 mg STK-MED ONCE .ROUTE ; Start 10/12/16 at 14:58; Stop at 14:59; Status DC Fentanyl Citrate (Fentanyl 2ml Vial) 100 mcg STK-MED ONCE .ROUTE ; Start at 16:09; Stop 10/12/16 at 16:10; Status DC Diphenhydramine HCl (Benadryl) 25 mg PRN Q6HRS PRN IV ITCHING; Start 10/12/16 at 16:30 Enoxaparin Sodium (Lovenox 30mg Syringe) 30 mg Q24H SQ ; Start 10/13/16 at 09:00 Sodium Chloride (Normal Saline Flush) 3 ml QSHIFT PRN IV AFTER MEDS AND BLOOD DRAWS; Start 10/12/16 at 16:30 Potassium Chloride/Sodium Chloride 1,000 ml @ 100 mls/hr Q10H IV ; Start at 17:00; Stop 10/12/16 at 17:00; Status DC Hydromorphone HCl 30 ml @ 0 mls/hr CONT PRN PRN IV PROTOCOL Last administered on 10/12/16 17:55; Start 10/12/16 at 16:30 Ondansetron HCl (Zofran) 4 mg PRN Q6HRS PRN IV NAUESA, 1ST CHOICE; Start at 16:30 Throat Lozenges (Chloraseptic) 1 spray PRN Q2HR PRN PO SORE THROAT; Start at 16:45 Throat Lozenges (Cepacol Sore Throat Lozenge) 1 kathe PRN Q2HRS PRN PO SORE THROAT; Start 10/12/16 at 16:45 Piperacillin Sod/ Tazobactam Sod 2.25 gm/Sodium Chloride 50 ml @ 100 mls/hr Q8HRS IV Last administered on 10/13/16 06:05; Start 10/12/16 at 22:00 Sodium Chloride 1,000 ml @ 100 mls/hr Q10H IV Last administered on 10/13/16 03 :00; Start 10/12/16 at 17:00 Lidocaine/ Epinephrine (Xylocaine 1%-Epi 1:100,000) 20 ml 1X ONCE INJ Last administered on 10/12/16 22:00; Start 10/12/16 at 22:00; Stop 10/12/16 at 22:01; Status DC Lidocaine/ Epinephrine (Xylocaine 1%-Epi 1:200,000) 30 ml 1X ONCE INJ ; Start 10/12/16 at 22:00; Stop 10/12/16 at 22:01; Status Cancel Silver Nitrate/ Potassium Nitrate 1 each 1X ONCE TP Last administered on 21:45; Start 10/12/16 at 21:45; Stop 10/12/16 at 21:46; Status DC Cellulose 1 each 1X ONCE TP Last administered on 10/12/16 23:11; Start at 23:30; Stop 10/12/16 at 23:31; Status DC Active Scripts Active Reported Spironolactone 50 Mg Tablet 1 Tab PO BID Metformin Hcl 1,000 Mg Tablet 1,000 Mg PO [id number] Amlodipine Besylate 5 Mg Tablet 1 Tab PO DAILY Allergies Allergies: Coded Allergies: No Known Drug Allergies (Unverified , 11/12/13) Physical Exam Physical Exam large tender red umb mass w/ surrounding redness, no streaks/fluctuance, rest ok Vitals Vitals Vital Signs Date Time Temp Pulse Resp B/P (MAP) Pulse Ox O2 Delivery O2 Flow Rate FiO2 10/13/16 07:19 97.4 79 16 110/71 (84) 93 Nasal Cannula 2.0 97.4 Labs Labs Laboratory Tests Test 10/12/16 11:40 10/12/16 12:45 10/12/16 14:24 10/12/16 15:31 Glucose (Fingerstick) 355 mg/dL (70-99) 334 mg/dL (70-99) 261 mg/dL (70-99) White Blood Count 14.8 x10^3/uL (4.0-11.0) Red Blood Count 4.12 x10^6/uL (4.30-5.70) Hemoglobin 12.1 g/dL (13.0-17.5) Hematocrit 34.1 % (39.0-53.0) Mean Corpuscular Volume 83 fL (79-100) Mean Corpuscular Hemoglobin 29 pg (25-35) Mean Corpuscular Hemoglobin Concent 35 g/dL (31-37) Red Cell Distribution Width 15.2 % (11.5-14.5) Platelet Count 313 x10^3/uL (140-400) Neutrophils (%) (Auto) 85 % (31-73) Lymphocytes (%) (Auto) 6 % (24-48) Monocytes (%) (Auto) 9 % (0-9) Eosinophils (%) (Auto) 0 % (0-3) Basophils (%) (Auto) 0 % (0-3) Neutrophils # (Auto) 12.6 x10^3uL (1.8-7.7) Lymphocytes # (Auto) 0.9 x10^3/uL (1.0-4.8) Monocytes # (Auto) 1.3 x10^3/uL (0.0-1.1) Eosinophils # (Auto) 0.0 x10^3/uL (0.0-0.7) Basophils # (Auto) 0.0 x10^3/uL (0.0-0.2) Segmented Neutrophils % 79 % (35-66) Band Neutrophils % 4 % (0-9) Lymphocytes % 12 % (24-48) Monocytes % 5 % (0-10) Toxic Granulation Slight Platelet Estimate Adequate (ADEQUATE) Large Platelets Occ Polychromasia Slight Target Cells Occ Ovalocytes Occ Prothrombin Time 16.2 SEC (11.7-14.0) Prothromb Time International Ratio 1.4 (0.8-1.1) Sodium Level 123 mmol/L (136-145) Potassium Level 5.6 mmol/L (3.5-5.1) Chloride Level 77 mmol/L (98-107) Carbon Dioxide Level 37 mmol/L (21-32) Anion Gap 9 (6-14) Blood Urea Nitrogen 113 mg/dL (8-26) Creatinine 5.9 mg/dL (0.7-1.3) Estimated GFR (Cockcroft-Gault) 9.8 BUN/Creatinine Ratio 19 (6-20) Glucose Level 341 mg/dL (70-99) Lactic Acid Level 1.9 mmol/L (0.4-2.0) Calcium Level 8.5 mg/dL (8.5-10.1) Total Bilirubin 1.0 mg/dL (0.2-1.0) Aspartate Amino Transf (AST/SGOT) 18 U/L (15-37) Alanine Aminotransferase (ALT/SGPT) 20 U/L (16-63) Alkaline Phosphatase 180 U/L (46-116) Total Protein 8.6 g/dL (6.4-8.2) Albumin 3.2 g/dL (3.4-5.0) Albumin/Globulin Ratio 0.6 (1.0-1.7) Test 10/12/16 16:28 10/12/16 20:08 10/12/16 21:30 10/13/16 07:23 Glucose (Fingerstick) 146 mg/dL (70-99) 114 mg/dL (70-99) 341 mg/dL (70-99) Hemoglobin 11.4 g/dL (13.0-17.5) Hematocrit 33.1 % (39.0-53.0) Prothrombin Time 16.6 SEC (11.7-14.0) Prothromb Time International Ratio 1.4 (0.8-1.1) Laboratory Tests Test 10/12/16 11:40 10/12/16 12:45 10/12/16 14:24 10/12/16 15:31 Glucose (Fingerstick) 355 mg/dL (70-99) 334 mg/dL (70-99) 261 mg/dL (70-99) White Blood Count 14.8 x10^3/uL (4.0-11.0) Red Blood Count 4.12 x10^6/uL (4.30-5.70) Hemoglobin 12.1 g/dL (13.0-17.5) Hematocrit 34.1 % (39.0-53.0) Mean Corpuscular Volume 83 fL (79-100) Mean Corpuscular Hemoglobin 29 pg (25-35) Mean Corpuscular Hemoglobin Concent 35 g/dL (31-37) Red Cell Distribution Width 15.2 % (11.5-14.5) Platelet Count 313 x10^3/uL (140-400) Neutrophils (%) (Auto) 85 % (31-73) Lymphocytes (%) (Auto) 6 % (24-48) Monocytes (%) (Auto) 9 % (0-9) Eosinophils (%) (Auto) 0 % (0-3) Basophils (%) (Auto) 0 % (0-3) Neutrophils # (Auto) 12.6 x10^3uL (1.8-7.7) Lymphocytes # (Auto) 0.9 x10^3/uL (1.0-4.8) Monocytes # (Auto) 1.3 x10^3/uL (0.0-1.1) Eosinophils # (Auto) 0.0 x10^3/uL (0.0-0.7) Basophils # (Auto) 0.0 x10^3/uL (0.0-0.2) Segmented Neutrophils % 79 % (35-66) Band Neutrophils % 4 % (0-9) Lymphocytes % 12 % (24-48) Monocytes % 5 % (0-10) Toxic Granulation Slight Platelet Estimate Adequate (ADEQUATE) Large Platelets Occ Polychromasia Slight Target Cells Occ Ovalocytes Occ Prothrombin Time 16.2 SEC (11.7-14.0) Prothromb Time International Ratio 1.4 (0.8-1.1) Sodium Level 123 mmol/L (136-145) Potassium Level 5.6 mmol/L (3.5-5.1) Chloride Level 77 mmol/L (98-107) Carbon Dioxide Level 37 mmol/L (21-32) Anion Gap 9 (6-14) Blood Urea Nitrogen 113 mg/dL (8-26) Creatinine 5.9 mg/dL (0.7-1.3) Estimated GFR (Cockcroft-Gault) 9.8 BUN/Creatinine Ratio 19 (6-20) Glucose Level 341 mg/dL (70-99) Lactic Acid Level 1.9 mmol/L (0.4-2.0) Calcium Level 8.5 mg/dL (8.5-10.1) Total Bilirubin 1.0 mg/dL (0.2-1.0) Aspartate Amino Transf (AST/SGOT) 18 U/L (15-37) Alanine Aminotransferase (ALT/SGPT) 20 U/L (16-63) Alkaline Phosphatase 180 U/L (46-116) Total Protein 8.6 g/dL (6.4-8.2) Albumin 3.2 g/dL (3.4-5.0) Albumin/Globulin Ratio 0.6 (1.0-1.7) Test 10/12/16 16:28 10/12/16 20:08 10/12/16 21:30 10/13/16 07:23 Glucose (Fingerstick) 146 mg/dL (70-99) 114 mg/dL (70-99) 341 mg/dL (70-99) Hemoglobin 11.4 g/dL (13.0-17.5) Hematocrit 33.1 % (39.0-53.0) Prothrombin Time 16.6 SEC (11.7-14.0) Prothromb Time International Ratio 1.4 (0.8-1.1) VTE Prophylaxis Ordered VTE Prophylaxis Devices: Yes VTE Pharmacological Prophylaxi: Yes Assessment/Plan Assessment/Plan ct abd re suspected incarcerated hernia w/ sbo, vanc/zosyn , surg consult LEANN BOB MD Oct 13, 2016 08:21
[2016-10-13] MEDS ORDERED: DEXTROSE 50% 25 GM / 50ML DISP.SYRIN. IV PRN (08:45)
--- NOTE | 2016-10-13 08:52 | PDOC ---
Provider Note Provider Note has acute renal failure as well as sbo , last labs 08/23 were ok- takes only aldactone as op, no metformin or lasix- low Na+, high K+- will check cortisol, give saline bolus, daily bmp, renal consult as may need dialysis- likely tpn- add levemir re dm control - has alcoholic liver dsease but off etoh 6 weeks or so- zosyn for now LEANN BOB MD Oct 13, 2016 08:52
[2016-10-13] MEDS ORDERED: IV DEXTROSE 5% - 0.9 % NACL 500 ML IV ONE (09:00)
[2016-10-13] MEDS ORDERED: ENOXAPARIN 30 MG/0.3 ML SYRINGE. SQ SCH (09:00)
[2016-10-13] MEDS ORDERED: INSULIN ASPART 300 UNITS/3 ML INSULN.PEN SQ ONE (09:00)
[2016-10-13] MEDS: FAMOTIDINE 20 MG/2 ML VIAL IVP SCH ×2 (09:11→20:52)
[2016-10-13] MEDS: INSULIN DETEMIR 300 UNITS/3 ML INSULN.PEN. SQ SCH (09:15)
[2016-10-13 10:29] VITALS: BP 116/71
--- NOTE | 2016-10-13 11:43 | PDOC2 ---
CONSULT Date of Consult Date of Consult DATE: 10/13/16 TIME: 11:40 Reason for Consult Reason for Consult: ARF Referring Physician Referring Physician: Dr Nieves Identification/Chief Complaint Chief Complaint Abd Pain Problems: Source Source: Chart review, Patient History of Present Illness Reason for Visit: ARISTEO - Baseline creat 1.1 in august 2016; Some underlying liver issues - cirrhosis; no Known CKD per se. NO NSAIDS, +ve diuretics; + DM with ^^ FSBS OA ^ed K - yesterday, IVF with K, now better Low Na - was on 1/2 NS now better; Some NV, no D. 61yo HM who was admitted with Incarcerated ventral abdominal wall hernia causing high-grade mechanical small bowel obstruction as noted on CT ABD (without IVC) - now s/p repain of same. Past Medical History Cardiovascular: HTN, Hyperlipidemia Pulmonary: No pertinent hx CENTRAL NERVOUS SYSTEM: Periperal neuropathy GI: Other (cirrhosis) Hepatobiliary: Cirrhosis Musculoskeletal: Other (left 2nd toe amputation) Endocrine: Diabetes Past Surgical History Past Surgical History: Other (lt 2nd toe amputation), No pertinent history Family History Family History: Hypertension Social History No ALCOHOL: social Lives: with Family Current Medications Current Medications Current Medications Piperacillin Sod/ Tazobactam Sod 3.375 gm/Sodium Chloride 50 ml @ 100 mls/hr Q6HRS IV Last administered on 10/12/16 14:05; Start 10/12/16 at 12:00; Stop 10/12 at 16:42; Status DC Potassium Chloride/Dextrose/ Sod Cl 1,000 ml @ 125 mls/hr Q8H IV Last administered on 10/13/16 04:06; Start 10/12/16 at 11:45; Stop 10/13/16 at 07:44; Status DC Vancomycin HCl 1 gm/Sodium Chloride 250 ml @ 250 mls/hr 1X ONCE IV Last administered on 10/12/16 14:46; Start 10/12/16 at 11:45; Stop 10/12/16 at 12:44; Status DC Pneumococcal Polyvalent Vaccine (Pneumovax 23) 0.5 ml ONCE ONCE VAX IM Last administered on 10/13/16 09:10; Start 10/12/16 at 14:00; Stop 10/12/16 at 14:01; Status DC Ondansetron HCl (Zofran) 4 mg PRN Q6HRS PRN IV NAUSEA/VOMITING; Start 10/12/16 at 12:45; Stop 10/13/16 at 12:44 Fentanyl Citrate (Fentanyl 2ml Vial) 25 mcg PRN Q5MIN PRN IV MILD PAIN; Start 10/12/16 at 12:45; Stop 10/13/16 at 12:44 Fentanyl Citrate (Fentanyl 2ml Vial) 50 mcg PRN Q5MIN PRN IV MODERATE PAIN; Start 10/12/16 at 12:45; Stop 10/13/16 at 12:44 Morphine Sulfate 1 mg PRN Q10MIN PRN IV SEVERE PAIN; Start 10/12/16 at 12:45; Stop 10/13/16 at 12:44 Ringer's Solution 1,000 ml @ 30 mls/hr Q24H IV Last administered on 10/12/16t 13:30; Start 10/12/16 at 12:42; Stop 10/13/16 at 00:41; Status DC Lidocaine HCl 2 ml PRN 1X PRN ID PRIOR TO IV START; Start 10/12/16 at 12:45; Stop 10/13/16 at 12:44 Hydromorphone HCl (Dilaudid) 0.5 mg PRN Q10MIN PRN IV SEV PAIN, Second choice; Start 10/12/16 at 12:45; Stop 10/12/16 at 13:00; Status DC Prochlorperazine Edisylate (Compazine) 5 mg PACU PRN PRN IV NAUSEA, MRX1; Start 10/12/16 at 12:45; Stop 10/13/16 at 12:44 Insulin Aspart (NovoLOG VIAL) 6 unit 1X ONCE SQ ; Start 10/12/16 at 12:45; Stop 10/12/16 at 12:46; Status DC Sevoflurane (Ultane) 90 ml STK-MED ONCE IH ; Start 10/12/16 at 12:46; Stop at 12:47; Status DC Ketorolac Tromethamine (Toradol For Or Only) 60 mg STK-MED ONCE .ROUTE ; Start 10/12/16 at 12:47; Stop 10/12/16 at 12:48; Status DC Fentanyl Citrate (Fentanyl 2ml Vial) 100 mcg STK-MED ONCE .ROUTE ; Start at 12:47; Stop 10/12/16 at 12:48; Status DC Glycopyrrolate (Robinul) 1 mg STK-MED ONCE .ROUTE ; Start 10/12/16 at 12:47; Stop 10/12/16 at 12:48; Status DC Neostigmine Methylsulfate 5 mg STK-MED ONCE .ROUTE ; Start 10/12/16 at 12:48; Stop 10/12/16 at 12:49; Status DC Succinylcholine Chloride (Anectine) 200 mg STK-MED ONCE .ROUTE ; Start 10/12/16 at 12:48; Stop 10/12/16 at 12:49; Status DC Propofol 20 ml @ As Directed STK-MED ONCE IV ; Start 10/12/16 at 12:48; Stop 10/12 at 12:49; Status DC Ondansetron HCl (Zofran) 4 mg STK-MED ONCE .ROUTE ; Start 10/12/16 at 12:48; Stop 10/12/16 at 12:49; Status DC Dexamethasone Sodium Phosphate (Decadron) 20 mg STK-MED ONCE .ROUTE ; Start 10/12 at 12:48; Stop 10/12/16 at 12:49; Status DC Lidocaine HCl (Lidocaine Pf 2% Vial) 5 ml STK-MED ONCE .ROUTE ; Start 10/12/16 at 12:48; Stop 10/12/16 at 12:49; Status DC Ondansetron HCl (Zofran) 4 mg PRN Q6HRS PRN IV NAUSEA/VOMITING; Start 10/12/16 at 13:00; Stop 10/13/16 at 09:09; Status DC Hydromorphone HCl (Dilaudid) 0.6 mg PRN Q3HRS PRN IVP PAIN; Start 10/12/16 at 13 :00 Insulin Aspart (NovoLOG) 8 units 1X ONCE SQ Last administered on 10/12/16t 13: 50; Start 10/12/16 at 13:00; Stop 10/12/16 at 13:02; Status DC Insulin Aspart (NovoLOG) 0-7 UNITS TIDWMEALS SQ ; Start 10/12/16 at 17:00; Stop 10/13/16 at 08:51; Status DC Dextrose (Dextrose 50%-Water Syringe) 12.5 gm PRN Q15MIN PRN IV SEE COMMENTS; Start 10/12/16 at 13:00; Status Cancel Phenylephrine HCl 1 mg STK-MED ONCE IV ; Start 10/12/16 at 14:40; Stop 10/12/16 at 14:41; Status DC Morphine Sulfate 10 mg STK-MED ONCE .ROUTE ; Start 10/12/16 at 14:58; Stop at 14:59; Status DC Fentanyl Citrate (Fentanyl 2ml Vial) 100 mcg STK-MED ONCE .ROUTE ; Start at 16:09; Stop 10/12/16 at 16:10; Status DC Diphenhydramine HCl (Benadryl) 25 mg PRN Q6HRS PRN IV ITCHING; Start 10/12/16 at 16:30 Enoxaparin Sodium (Lovenox 30mg Syringe) 30 mg Q24H SQ ; Start 10/13/16 at 09:00 Sodium Chloride (Normal Saline Flush) 3 ml QSHIFT PRN IV AFTER MEDS AND BLOOD DRAWS; Start 10/12/16 at 16:30 Potassium Chloride/Sodium Chloride 1,000 ml @ 100 mls/hr Q10H IV ; Start at 17:00; Stop 10/12/16 at 17:00; Status DC Hydromorphone HCl 30 ml @ 0 mls/hr CONT PRN PRN IV PROTOCOL Last administered on 10/12/16 17:55; Start 10/12/16 at 16:30 Ondansetron HCl (Zofran) 4 mg PRN Q6HRS PRN IV NAUESA, 1ST CHOICE; Start at 16:30 Throat Lozenges (Chloraseptic) 1 spray PRN Q2HR PRN PO SORE THROAT; Start at 16:45 Throat Lozenges (Cepacol Sore Throat Lozenge) 1 kathe PRN Q2HRS PRN PO SORE THROAT; Start 10/12/16 at 16:45 Piperacillin Sod/ Tazobactam Sod 2.25 gm/Sodium Chloride 50 ml @ 100 mls/hr Q8HRS IV Last administered on 10/13/16 06:05; Start 10/12/16 at 22:00 Sodium Chloride 1,000 ml @ 150 mls/hr Q6H40M IV Last administered on 10/13/16 03:00; Start 10/12/16 at 17:00 Lidocaine/ Epinephrine (Xylocaine 1%-Epi 1:100,000) 20 ml 1X ONCE INJ Last administered on 10/12/16 22:00; Start 10/12/16 at 22:00; Stop 10/12/16 at 22:01; Status DC Lidocaine/ Epinephrine (Xylocaine 1%-Epi 1:200,000) 30 ml 1X ONCE INJ ; Start 10/12/16 at 22:00; Stop 10/12/16 at 22:01; Status Cancel Silver Nitrate/ Potassium Nitrate 1 each 1X ONCE TP Last administered on 21:45; Start 10/12/16 at 21:45; Stop 10/12/16 at 21:46; Status DC Cellulose 1 each 1X ONCE TP Last administered on 10/12/16 23:11; Start at 23:30; Stop 10/12/16 at 23:31; Status DC Dextrose/Sodium Chloride 500 ml @ 0 mls/hr 1X ONCE IV Last administered on 10/13 09:10; Start 10/13/16 at 09:00; Stop 10/13/16 at 09:01; Status DC Insulin Detemir (Levemir) 20 units DAILY10 SQ Last administered on 10/13/16 09: 15; Start 10/13/16 at 10:00 Insulin Aspart (NovoLOG) 0-9 UNITS TIDWMEALS SQ Last administered on 10/13/16 09:14; Start 10/13/16 at 09:00 Dextrose (Dextrose 50%-Water Syringe) 12.5 gm PRN Q15MIN PRN IV SEE COMMENTS; Start 10/13/16 at 08:45 Insulin Aspart (NovoLOG) 10 units 1X ONCE SQ Last administered on 10/13/16 09: 15; Start 10/13/16 at 09:00; Stop 10/13/16 at 09:01; Status DC Famotidine (Pepcid) 20 mg QHS IVP Last administered on 10/13/16 09:11; Start at 09:00 Active Scripts Active Reported Spironolactone 50 Mg Tablet 1 Tab PO BID Metformin Hcl 1,000 Mg Tablet 1,000 Mg PO [id number] Amlodipine Besylate 5 Mg Tablet 1 Tab PO DAILY Allergies Allergies: Coded Allergies: No Known Drug Allergies (Unverified , 11/12/13) ROS Review of System GEN: no Fevers no Chills EYES: no new Visual Complaints ENT: no EN Drainage no Hearing deficiets CVS: no Orthopnea no CP RESP: no SOB no JACK GI: + Nausea + Vomiting + Abd Pain : no Dysuria no Urgency HEME: no easy bruising no Palp Ly Nodes NEURO no Focal Weakness no Sz PSYCH: no Suicidal Ideation no Depression SKIN: no Rashes ENDO: no Polyuria or Polydipsia no Hot/Cold Intolerance MU SK: ch Arthraigia no Myalgia Physical Exam Physical Exam General Appearance: Awake Alert Oriented x 3 In no Distress Eyes: VIsion Unchanged Conjunctiva Normal EN: No EN Drainage Mucous Memb. moist NGT in place Neck: no JVD no JVP Supple no Thyromegaly CVS: S1 S2 no Murmur No Gallop No Rub no Edema Resp: no Rales no Rhonchi no Acc. Muscle use GI: BAS - ve NO Bruit ++ Tender Non Distended : no CVA tenderness; no Suprapubic Tenderness SKIN: no Rashes Breast Exam deferred Mu.Sk: Adequate ROM no Muscle Atrophy Heme: Unable to palpate Obvious LAD no Splenomegaly NEURO: Good Strength and Tone Cranial Nerves II - XII grossly intact Psych: no Depressed no Active hallucination Vital Signs Vital Signs Date Time Temp Pulse Resp B/P (MAP) Pulse Ox O2 Delivery O2 Flow Rate FiO2 10/13/16 10:29 96.1 77 16 116/71 (86) 98 Nasal Cannula 2.0 96.1 Assessment & Plan ARF/ ? ATN : Currently Marginally-oliguric, Current FLuid and E-lyte status does not necessitate emergent need for Dialysis. Will re-evaluate for Dialysis in am - Temp HD Cath ^K - resolved Low Na - better with NS and improving FSBS ? Contraction / Met alklosis from NV and diuretic use - IV NS for now H/o Cirrhosis with ^ed VARUN Derrick - ? Risk of re-accumulation of Ascites.- may need to change to Alb Transient HypoTN: watch Tren don current IVF. Incarcerated ventral abdominal wall hernia causing high-grade mechanical small bowel obstruction - now s/p surgery for the same. ? TPN in near future vs PO intake. Labs Labs Laboratory Tests Test 10/12/16 11:40 10/12/16 12:45 10/12/16 14:24 10/12/16 15:31 Glucose (Fingerstick) 355 mg/dL (70-99) 334 mg/dL (70-99) 261 mg/dL (70-99) White Blood Count 14.8 x10^3/uL (4.0-11.0) Red Blood Count 4.12 x10^6/uL (4.30-5.70) Hemoglobin 12.1 g/dL (13.0-17.5) Hematocrit 34.1 % (39.0-53.0) Mean Corpuscular Volume 83 fL (79-100) Mean Corpuscular Hemoglobin 29 pg (25-35) Mean Corpuscular Hemoglobin Concent 35 g/dL (31-37) Red Cell Distribution Width 15.2 % (11.5-14.5) Platelet Count 313 x10^3/uL (140-400) Neutrophils (%) (Auto) 85 % (31-73) Lymphocytes (%) (Auto) 6 % (24-48) Monocytes (%) (Auto) 9 % (0-9) Eosinophils (%) (Auto) 0 % (0-3) Basophils (%) (Auto) 0 % (0-3) Neutrophils # (Auto) 12.6 x10^3uL (1.8-7.7) Lymphocytes # (Auto) 0.9 x10^3/uL (1.0-4.8) Monocytes # (Auto) 1.3 x10^3/uL (0.0-1.1) Eosinophils # (Auto) 0.0 x10^3/uL (0.0-0.7) Basophils # (Auto) 0.0 x10^3/uL (0.0-0.2) Segmented Neutrophils % 79 % (35-66) Band Neutrophils % 4 % (0-9) Lymphocytes % 12 % (24-48) Monocytes % 5 % (0-10) Toxic Granulation Slight Platelet Estimate Adequate (ADEQUATE) Large Platelets Occ Polychromasia Slight Target Cells Occ Ovalocytes Occ Prothrombin Time 16.2 SEC (11.7-14.0) Prothromb Time International Ratio 1.4 (0.8-1.1) Sodium Level 123 mmol/L (136-145) Potassium Level 5.6 mmol/L (3.5-5.1) Chloride Level 77 mmol/L (98-107) Carbon Dioxide Level 37 mmol/L (21-32) Anion Gap 9 (6-14) Blood Urea Nitrogen 113 mg/dL (8-26) Creatinine 5.9 mg/dL (0.7-1.3) Estimated GFR (Cockcroft-Gault) 9.8 BUN/Creatinine Ratio 19 (6-20) Glucose Level 341 mg/dL (70-99) Lactic Acid Level 1.9 mmol/L (0.4-2.0) Calcium Level 8.5 mg/dL (8.5-10.1) Total Bilirubin 1.0 mg/dL (0.2-1.0) Aspartate Amino Transf (AST/SGOT) 18 U/L (15-37) Alanine Aminotransferase (ALT/SGPT) 20 U/L (16-63) Alkaline Phosphatase 180 U/L (46-116) Total Protein 8.6 g/dL (6.4-8.2) Albumin 3.2 g/dL (3.4-5.0) Albumin/Globulin Ratio 0.6 (1.0-1.7) Test 10/12/16 16:28 10/12/16 20:08 10/12/16 21:30 10/13/16 07:23 Glucose (Fingerstick) 146 mg/dL (70-99) 114 mg/dL (70-99) 341 mg/dL (70-99) Hemoglobin 11.4 g/dL (13.0-17.5) Hematocrit 33.1 % (39.0-53.0) Prothrombin Time 16.6 SEC (11.7-14.0) Prothromb Time International Ratio 1.4 (0.8-1.1) Test 10/13/16 11:15 Glucose (Fingerstick) 341 mg/dL (70-99) Laboratory Tests Test 10/12/16 12:45 10/12/16 14:24 10/12/16 15:31 10/12/16 16:28 White Blood Count 14.8 x10^3/uL (4.0-11.0) Red Blood Count 4.12 x10^6/uL (4.30-5.70) Hemoglobin 12.1 g/dL (13.0-17.5) Hematocrit 34.1 % (39.0-53.0) Mean Corpuscular Volume 83 fL (79-100) Mean Corpuscular Hemoglobin 29 pg (25-35) Mean Corpuscular Hemoglobin Concent 35 g/dL (31-37) Red Cell Distribution Width 15.2 % (11.5-14.5) Platelet Count 313 x10^3/uL (140-400) Neutrophils (%) (Auto) 85 % (31-73) Lymphocytes (%) (Auto) 6 % (24-48) Monocytes (%) (Auto) 9 % (0-9) Eosinophils (%) (Auto) 0 % (0-3) Basophils (%) (Auto) 0 % (0-3) Neutrophils # (Auto) 12.6 x10^3uL (1.8-7.7) Lymphocytes # (Auto) 0.9 x10^3/uL (1.0-4.8) Monocytes # (Auto) 1.3 x10^3/uL (0.0-1.1) Eosinophils # (Auto) 0.0 x10^3/uL (0.0-0.7) Basophils # (Auto) 0.0 x10^3/uL (0.0-0.2) Segmented Neutrophils % 79 % (35-66) Band Neutrophils % 4 % (0-9) Lymphocytes % 12 % (24-48) Monocytes % 5 % (0-10) Toxic Granulation Slight Platelet Estimate Adequate (ADEQUATE) Large Platelets Occ Polychromasia Slight Target Cells Occ Ovalocytes Occ Prothrombin Time 16.2 SEC (11.7-14.0) Prothromb Time International Ratio 1.4 (0.8-1.1) Sodium Level 123 mmol/L (136-145) Potassium Level 5.6 mmol/L (3.5-5.1) Chloride Level 77 mmol/L (98-107) Carbon Dioxide Level 37 mmol/L (21-32) Anion Gap 9 (6-14) Blood Urea Nitrogen 113 mg/dL (8-26) Creatinine 5.9 mg/dL (0.7-1.3) Estimated GFR (Cockcroft-Gault) 9.8 BUN/Creatinine Ratio 19 (6-20) Glucose Level 341 mg/dL (70-99) Lactic Acid Level 1.9 mmol/L (0.4-2.0) Calcium Level 8.5 mg/dL (8.5-10.1) Total Bilirubin 1.0 mg/dL (0.2-1.0) Aspartate Amino Transf (AST/SGOT) 18 U/L (15-37) Alanine Aminotransferase (ALT/SGPT) 20 U/L (16-63) Alkaline Phosphatase 180 U/L (46-116) Total Protein 8.6 g/dL (6.4-8.2) Albumin 3.2 g/dL (3.4-5.0) Albumin/Globulin Ratio 0.6 (1.0-1.7) Glucose (Fingerstick) 334 mg/dL (70-99) 261 mg/dL (70-99) 146 mg/dL (70-99) Test 10/12/16 20:08 10/12/16 21:30 10/13/16 07:23 10/13/16 11:15 Glucose (Fingerstick) 114 mg/dL (70-99) 341 mg/dL (70-99) 341 mg/dL (70-99) Hemoglobin 11.4 g/dL (13.0-17.5) Hematocrit 33.1 % (39.0-53.0) Prothrombin Time 16.6 SEC (11.7-14.0) Prothromb Time International Ratio 1.4 (0.8-1.1) VALENTINA POP MD Oct 13, 2016 11:43
[2016-10-13] MEDS ORDERED: MAGNESIUM SULFATE 2GM 50 ML IV PRN (11:45)
[2016-10-13 12:10] LABS: CALCIUM 7.8 mg/dL (8.5-10.1); CREATININE 5.2 mg/dL (0.7-1.3); GFR 11.4; POTASSIUM 4.7 mmol/L (3.5-5.1)
[2016-10-13] MEDS: IV NORMAL SALINE 1000ML BAG 1,000 ML IV SCH ×2 (14:02→20:17)
[2016-10-13] MEDS ORDERED: HEPARIN for IV BOLUS 10,000 UNIT/10 ML VIAL. ONE (14:12)
[2016-10-13] MEDS ORDERED: LIDOCAINE 1% / SOD BICARB 8.4% 20 ML VIAL. IJ ONE ×2 (14:12→14:45)
--- NOTE | 2016-10-13 14:16 | PDOC ---
SURGICAL PROGRESS NOTE Subjective POD 1 SBR for strangulated umbilical hernia now with ARF heading down to IR for temp HD catheter pain controlled Vital Signs Vital Signs Date Time Temp Pulse Resp B/P (MAP) Pulse Ox O2 Delivery O2 Flow Rate FiO2 10/13/16 10:29 96.1 77 16 116/71 (86) 98 Nasal Cannula 2.0 96.1 I&O Intake and Output 10/13/16 07:00 Intake Total 2350 ml Output Total 1450 ml Balance 900 ml Intake Oral 0 ml IV Total 2350 ml Output Urine Total 650 ml Gastric Drainage Total 200 ml Drainage Total 600 ml PATIENT HAS A LUGO: Yes General: Alert, No acute distress Abdomen: Soft, Other (minimal shadowing on dressing) Labs Laboratory Tests Test 10/12/16 11:40 10/12/16 12:45 10/12/16 14:24 10/12/16 15:31 Glucose (Fingerstick) 355 mg/dL (70-99) 334 mg/dL (70-99) 261 mg/dL (70-99) White Blood Count 14.8 x10^3/uL (4.0-11.0) Red Blood Count 4.12 x10^6/uL (4.30-5.70) Hemoglobin 12.1 g/dL (13.0-17.5) Hematocrit 34.1 % (39.0-53.0) Mean Corpuscular Volume 83 fL (79-100) Mean Corpuscular Hemoglobin 29 pg (25-35) Mean Corpuscular Hemoglobin Concent 35 g/dL (31-37) Red Cell Distribution Width 15.2 % (11.5-14.5) Platelet Count 313 x10^3/uL (140-400) Neutrophils (%) (Auto) 85 % (31-73) Lymphocytes (%) (Auto) 6 % (24-48) Monocytes (%) (Auto) 9 % (0-9) Eosinophils (%) (Auto) 0 % (0-3) Basophils (%) (Auto) 0 % (0-3) Neutrophils # (Auto) 12.6 x10^3uL (1.8-7.7) Lymphocytes # (Auto) 0.9 x10^3/uL (1.0-4.8) Monocytes # (Auto) 1.3 x10^3/uL (0.0-1.1) Eosinophils # (Auto) 0.0 x10^3/uL (0.0-0.7) Basophils # (Auto) 0.0 x10^3/uL (0.0-0.2) Segmented Neutrophils % 79 % (35-66) Band Neutrophils % 4 % (0-9) Lymphocytes % 12 % (24-48) Monocytes % 5 % (0-10) Toxic Granulation Slight Platelet Estimate Adequate (ADEQUATE) Large Platelets Occ Polychromasia Slight Target Cells Occ Ovalocytes Occ Prothrombin Time 16.2 SEC (11.7-14.0) Prothromb Time International Ratio 1.4 (0.8-1.1) Sodium Level 123 mmol/L (136-145) Potassium Level 5.6 mmol/L (3.5-5.1) Chloride Level 77 mmol/L (98-107) Carbon Dioxide Level 37 mmol/L (21-32) Anion Gap 9 (6-14) Blood Urea Nitrogen 113 mg/dL (8-26) Creatinine 5.9 mg/dL (0.7-1.3) Estimated GFR (Cockcroft-Gault) 9.8 BUN/Creatinine Ratio 19 (6-20) Glucose Level 341 mg/dL (70-99) Lactic Acid Level 1.9 mmol/L (0.4-2.0) Calcium Level 8.5 mg/dL (8.5-10.1) Total Bilirubin 1.0 mg/dL (0.2-1.0) Aspartate Amino Transf (AST/SGOT) 18 U/L (15-37) Alanine Aminotransferase (ALT/SGPT) 20 U/L (16-63) Alkaline Phosphatase 180 U/L (46-116) Total Protein 8.6 g/dL (6.4-8.2) Albumin 3.2 g/dL (3.4-5.0) Albumin/Globulin Ratio 0.6 (1.0-1.7) Test 10/12/16 16:28 10/12/16 20:08 10/12/16 21:30 10/13/16 07:23 Glucose (Fingerstick) 146 mg/dL (70-99) 114 mg/dL (70-99) 341 mg/dL (70-99) Hemoglobin 11.4 g/dL (13.0-17.5) Hematocrit 33.1 % (39.0-53.0) Prothrombin Time 16.6 SEC (11.7-14.0) Prothromb Time International Ratio 1.4 (0.8-1.1) Test 10/13/16 09:15 10/13/16 11:15 Sodium Level 129 mmol/L (136-145) Potassium Level 4.7 mmol/L (3.5-5.1) Chloride Level 84 mmol/L (98-107) Carbon Dioxide Level 33 mmol/L (21-32) Anion Gap 12 (6-14) Blood Urea Nitrogen 112 mg/dL (8-26) Creatinine 5.2 mg/dL (0.7-1.3) Estimated GFR (Cockcroft-Gault) 11.4 Glucose Level 345 mg/dL (70-99) Calcium Level 7.8 mg/dL (8.5-10.1) Glucose (Fingerstick) 341 mg/dL (70-99) Laboratory Tests Test 10/12/16 14:24 10/12/16 15:31 10/12/16 16:28 10/12/16 20:08 Glucose (Fingerstick) 334 mg/dL (70-99) 261 mg/dL (70-99) 146 mg/dL (70-99) 114 mg/dL (70-99) Test 10/12/16 21:30 10/13/16 07:23 10/13/16 09:15 10/13/16 11:15 Hemoglobin 11.4 g/dL (13.0-17.5) Hematocrit 33.1 % (39.0-53.0) Prothrombin Time 16.6 SEC (11.7-14.0) Prothromb Time International Ratio 1.4 (0.8-1.1) Glucose (Fingerstick) 341 mg/dL (70-99) 341 mg/dL (70-99) Sodium Level 129 mmol/L (136-145) Potassium Level 4.7 mmol/L (3.5-5.1) Chloride Level 84 mmol/L (98-107) Carbon Dioxide Level 33 mmol/L (21-32) Anion Gap 12 (6-14) Blood Urea Nitrogen 112 mg/dL (8-26) Creatinine 5.2 mg/dL (0.7-1.3) Estimated GFR (Cockcroft-Gault) 11.4 Glucose Level 345 mg/dL (70-99) Calcium Level 7.8 mg/dL (8.5-10.1) Assessment/Plan POD 1 continue NG fluids per nephrology WC consult in place Dr Booth to follow over the weekend Problems: BREN MENDIOLA MD Oct 13, 2016 14:16
[2016-10-13 15:06] VITALS: BP 109/75
--- NOTE | 2016-10-13 15:14 | RAD ---
Procedure: Right internal jugular temporary hemodialysis catheter placement under fluoroscopy 10/13/2016 Clinical Indication: Need for central venous access, possible up coming dialysis, Fluoro Time: 0.2 minutes Dose area product 2 Gycm2 Discussion: The risks and benefits of the procedure were discussed the patient. Informed consent was obtained. Timeout procedure was performed. All elements of maximal sterile barrier technique including the use of a cap, mask, sterile gown, sterile gloves, large sterile sheet, appropriate hand hygiene, and 2% chlorhexidine for cutaneous antisepsis (or acceptable alternative antiseptic per current guidelines) were followed for this procedure. Ultrasound interrogation of the right neck revealed patency and compressibility of the right internal jugular vein. A 21-gauge micropuncture needle was used to gain access to this vein after 1% Lidocaine was used to achieve local anesthesia. A hardcopy ultrasound image was recorded. The needle was exchanged over a wire for serial dilators followed by a 15 cm temporary hemodialysis catheter which was deployed under fluoroscopic guidance such that the distal tip resided in the mid right atrium. The catheter flow rates were assessed manually and found to be excellent. The catheter was then flushed, packed with Heparin, capped, and sutured to the skin. Impression: Successful ultrasound and fluoroscopic guided placement of a temporary hemodialysis catheter
[2016-10-13] MEDS ORDERED: IV DEXTROSE 5% 250 ML IV ONE (16:45)
[2016-10-13 19:00] VITALS: BP 112/74
[2016-10-13] MEDS: IV DEXTROSE 5% 250 ML IV PRN (20:10)
[2016-10-13] MEDS: IV DEXTROSE 5% 250 ML IV SCH ×4 (20:11→21:15)
[2016-10-13] MEDS ORDERED: IV DEXTROSE 5% 1,000 ML IV ONE (20:30)
[2016-10-13 23:00] VITALS: BP 120/71
[2016-10-14] MEDS: IV DEXTROSE 5% 250 ML IV PRN (00:51)
[2016-10-14 03:00] VITALS: BP 113/72
[2016-10-14] MEDS: IV NORMAL SALINE 1000ML BAG 1,000 ML IV SCH ×4 (04:54→21:21)
[2016-10-14 05:20] LABS: ALBUMIN 2.1 g/dL (3.4-5.0); CALCIUM 7.1 mg/dL (8.5-10.1); CREATININE 3.7 mg/dL (0.7-1.3); GFR 16.8; PHOSPHORUS 4.6 mg/dL (2.6-4.7); POTASSIUM 3.2 mmol/L (3.5-5.1)
[2016-10-14] MEDS: PIPERACILLIN/TAZOBACTAM 2.25 GM in IV NORMAL SALINE 50ML 50 ML IV SCH ×3 (05:47→21:52)
[2016-10-14 07:00] VITALS: BP 150/84
[2016-10-14] MEDS: INSULIN ASPART 300 UNITS/3 ML INSULN.PEN SQ SCH ×3 (08:00→17:00)
[2016-10-14] MEDS: INSULIN DETEMIR 300 UNITS/3 ML INSULN.PEN. SQ SCH (10:00)
[2016-10-14 11:00] VITALS: BP 143/86
--- NOTE | 2016-10-14 11:11 | PDOC ---
SURGICAL PROGRESS NOTE Subjective Pt with c/o some incisional pain Vital Signs Vital Signs Date Time Temp Pulse Resp B/P (MAP) Pulse Ox O2 Delivery O2 Flow Rate FiO2 10/14/16 11:00 97.1 82 20 143/86 (105) 95 Nasal Cannula 2.0 97.1 I&O Intake and Output 10/14/16 07:00 Intake Total 0 ml Output Total 2915 ml Balance -2915 ml Intake Oral 0 ml Output Urine Total 1575 ml Gastric Drainage Total 750 ml Drainage Total 590 ml General: Alert, Cooperative, No acute distress Abdomen: Soft, No tenderness, Other (dressing with some drainage) Labs Laboratory Tests Test 10/12/16 11:40 10/12/16 12:45 10/12/16 14:24 10/12/16 15:31 Glucose (Fingerstick) 355 mg/dL (70-99) 334 mg/dL (70-99) 261 mg/dL (70-99) White Blood Count 14.8 x10^3/uL (4.0-11.0) Red Blood Count 4.12 x10^6/uL (4.30-5.70) Hemoglobin 12.1 g/dL (13.0-17.5) Hematocrit 34.1 % (39.0-53.0) Mean Corpuscular Volume 83 fL (79-100) Mean Corpuscular Hemoglobin 29 pg (25-35) Mean Corpuscular Hemoglobin Concent 35 g/dL (31-37) Red Cell Distribution Width 15.2 % (11.5-14.5) Platelet Count 313 x10^3/uL (140-400) Neutrophils (%) (Auto) 85 % (31-73) Lymphocytes (%) (Auto) 6 % (24-48) Monocytes (%) (Auto) 9 % (0-9) Eosinophils (%) (Auto) 0 % (0-3) Basophils (%) (Auto) 0 % (0-3) Neutrophils # (Auto) 12.6 x10^3uL (1.8-7.7) Lymphocytes # (Auto) 0.9 x10^3/uL (1.0-4.8) Monocytes # (Auto) 1.3 x10^3/uL (0.0-1.1) Eosinophils # (Auto) 0.0 x10^3/uL (0.0-0.7) Basophils # (Auto) 0.0 x10^3/uL (0.0-0.2) Segmented Neutrophils % 79 % (35-66) Band Neutrophils % 4 % (0-9) Lymphocytes % 12 % (24-48) Monocytes % 5 % (0-10) Toxic Granulation Slight Platelet Estimate Adequate (ADEQUATE) Large Platelets Occ Polychromasia Slight Target Cells Occ Ovalocytes Occ Prothrombin Time 16.2 SEC (11.7-14.0) Prothromb Time International Ratio 1.4 (0.8-1.1) Sodium Level 123 mmol/L (136-145) Potassium Level 5.6 mmol/L (3.5-5.1) Chloride Level 77 mmol/L (98-107) Carbon Dioxide Level 37 mmol/L (21-32) Anion Gap 9 (6-14) Blood Urea Nitrogen 113 mg/dL (8-26) Creatinine 5.9 mg/dL (0.7-1.3) Estimated GFR (Cockcroft-Gault) 9.8 BUN/Creatinine Ratio 19 (6-20) Glucose Level 341 mg/dL (70-99) Lactic Acid Level 1.9 mmol/L (0.4-2.0) Calcium Level 8.5 mg/dL (8.5-10.1) Total Bilirubin 1.0 mg/dL (0.2-1.0) Aspartate Amino Transf (AST/SGOT) 18 U/L (15-37) Alanine Aminotransferase (ALT/SGPT) 20 U/L (16-63) Alkaline Phosphatase 180 U/L (46-116) Total Protein 8.6 g/dL (6.4-8.2) Albumin 3.2 g/dL (3.4-5.0) Albumin/Globulin Ratio 0.6 (1.0-1.7) Test 10/12/16 16:28 10/12/16 20:08 10/12/16 21:30 10/13/16 07:23 Glucose (Fingerstick) 146 mg/dL (70-99) 114 mg/dL (70-99) 341 mg/dL (70-99) Hemoglobin 11.4 g/dL (13.0-17.5) Hematocrit 33.1 % (39.0-53.0) Prothrombin Time 16.6 SEC (11.7-14.0) Prothromb Time International Ratio 1.4 (0.8-1.1) Test 10/13/16 09:15 10/13/16 11:15 10/13/16 15:57 10/13/16 17:41 Sodium Level 129 mmol/L (136-145) Potassium Level 4.7 mmol/L (3.5-5.1) Chloride Level 84 mmol/L (98-107) Carbon Dioxide Level 33 mmol/L (21-32) Anion Gap 12 (6-14) Blood Urea Nitrogen 112 mg/dL (8-26) Creatinine 5.2 mg/dL (0.7-1.3) Estimated GFR (Cockcroft-Gault) 11.4 Glucose Level 345 mg/dL (70-99) Calcium Level 7.8 mg/dL (8.5-10.1) Glucose (Fingerstick) 341 mg/dL (70-99) 56 mg/dL (70-99) 72 mg/dL (70-99) Test 10/13/16 19:51 10/13/16 20:59 10/14/16 00:46 10/14/16 01:32 Glucose (Fingerstick) 66 mg/dL (70-99) 103 mg/dL (70-99) 65 mg/dL (70-99) 121 mg/dL (70-99) Test 10/14/16 04:15 10/14/16 04:20 10/14/16 07:35 Hemoglobin 10.8 g/dL (13.0-17.5) Sodium Level 137 mmol/L (136-145) Potassium Level 3.2 mmol/L (3.5-5.1) Chloride Level 96 mmol/L (98-107) Carbon Dioxide Level 36 mmol/L (21-32) Anion Gap 5 (6-14) Blood Urea Nitrogen 91 mg/dL (8-26) Creatinine 3.7 mg/dL (0.7-1.3) Estimated GFR (Cockcroft-Gault) 16.8 Glucose Level 75 mg/dL (70-99) Calcium Level 7.1 mg/dL (8.5-10.1) Phosphorus Level 4.6 mg/dL (2.6-4.7) Magnesium Level 2.6 mg/dL (1.8-2.4) Albumin 2.1 g/dL (3.4-5.0) Glucose (Fingerstick) 77 mg/dL (70-99) 77 mg/dL (70-99) Laboratory Tests Test 10/13/16 11:15 10/13/16 15:57 10/13/16 17:41 10/13/16 19:51 Glucose (Fingerstick) 341 mg/dL (70-99) 56 mg/dL (70-99) 72 mg/dL (70-99) 66 mg/dL (70-99) Test 10/13/16 20:59 10/14/16 00:46 10/14/16 01:32 10/14/16 04:15 Glucose (Fingerstick) 103 mg/dL (70-99) 65 mg/dL (70-99) 121 mg/dL (70-99) Hemoglobin 10.8 g/dL (13.0-17.5) Sodium Level 137 mmol/L (136-145) Potassium Level 3.2 mmol/L (3.5-5.1) Chloride Level 96 mmol/L (98-107) Carbon Dioxide Level 36 mmol/L (21-32) Anion Gap 5 (6-14) Blood Urea Nitrogen 91 mg/dL (8-26) Creatinine 3.7 mg/dL (0.7-1.3) Estimated GFR (Cockcroft-Gault) 16.8 Glucose Level 75 mg/dL (70-99) Calcium Level 7.1 mg/dL (8.5-10.1) Phosphorus Level 4.6 mg/dL (2.6-4.7) Magnesium Level 2.6 mg/dL (1.8-2.4) Albumin 2.1 g/dL (3.4-5.0) Test 10/14/16 04:20 10/14/16 07:35 Glucose (Fingerstick) 77 mg/dL (70-99) 77 mg/dL (70-99) Assessment/Plan s/p SBR, hernia repair cont dressing changes await bowel fxn Problems: QUIN BELTRAN MD Oct 14, 2016 11:11
[2016-10-14] MEDS ORDERED: DIALYSIS PATIENT. MC PRN (13:45)
--- NOTE | 2016-10-14 13:56 | PDOC ---
SUBJECTIVE Subjective Pain seemed to be under good control OBJECTIVE Vital Signs Vital Signs Date Time Temp Pulse Resp B/P (MAP) Pulse Ox O2 Delivery O2 Flow Rate FiO2 10/14/16 11:00 97.1 82 20 143/86 (105) 95 Nasal Cannula 2.0 97.1 10/14/16 08:00 Nasal Cannula 2.0 10/14/16 07:00 96.9 81 20 150/84 (106) 96 Nasal Cannula 2.0 96.9 10/14/16 03:00 95.7 78 18 113/72 (86) 97 Nasal Cannula 2.0 95.7 10/13/16 23:00 96.6 79 18 120/71 (87) 95 Nasal Cannula 2.0 96.6 10/13/16 20:00 Nasal Cannula 2.0 10/13/16 19:00 97.9 83 18 112/74 (87) 92 Room Air 97.9 10/13/16 15:06 97.4 75 16 109/75 (86) 99 Room Air 97.4 I & O Intake and Output 10/14/16 07:00 Intake Total 0 ml Output Total 2915 ml Balance -2915 ml Intake Oral 0 ml Output Urine Total 1575 ml Gastric Drainage Total 750 ml Drainage Total 590 ml PHYSICAL EXAM Physical Exam Lungs fairly clear Heart regular rate and rhythm Abdomen with tenderness to palpation, he still has NG tube Extremity no edema ASSESSMENT/PLAN Assessment/Plan 1-postop day #3 for incarcerated umbilical hernia 2-acute renal failure improving 3-hyponatremia resolved 4- hyperkalemia improved Problems: COMMENT Lab Laboratory Tests Test 10/13/16 15:57 10/13/16 17:41 10/13/16 19:51 10/13/16 20:59 Glucose (Fingerstick) 56 mg/dL (70-99) 72 mg/dL (70-99) 66 mg/dL (70-99) 103 mg/dL (70-99) Test 10/14/16 00:46 10/14/16 01:32 10/14/16 04:15 10/14/16 04:20 Glucose (Fingerstick) 65 mg/dL (70-99) 121 mg/dL (70-99) 77 mg/dL (70-99) Hemoglobin 10.8 g/dL (13.0-17.5) Sodium Level 137 mmol/L (136-145) Potassium Level 3.2 mmol/L (3.5-5.1) Chloride Level 96 mmol/L (98-107) Carbon Dioxide Level 36 mmol/L (21-32) Anion Gap 5 (6-14) Blood Urea Nitrogen 91 mg/dL (8-26) Creatinine 3.7 mg/dL (0.7-1.3) Estimated GFR (Cockcroft-Gault) 16.8 Glucose Level 75 mg/dL (70-99) Calcium Level 7.1 mg/dL (8.5-10.1) Phosphorus Level 4.6 mg/dL (2.6-4.7) Magnesium Level 2.6 mg/dL (1.8-2.4) Albumin 2.1 g/dL (3.4-5.0) Test 10/14/16 07:35 10/14/16 11:13 Glucose (Fingerstick) 77 mg/dL (70-99) 88 mg/dL (70-99) BEATRICE HADLEY MD Oct 14, 2016 13:56
--- NOTE | 2016-10-14 14:40 | PDOC ---
PROGRESS NOTES Subjective Subjective SEEN IN FOLLOW UP OF ARF Objective Objective Vital Signs Date Time Temp Pulse Resp B/P (MAP) Pulse Ox O2 Delivery O2 Flow Rate FiO2 10/14/16 11:00 97.1 82 20 143/86 (105) 95 Nasal Cannula 2.0 97.1 Intake and Output 10/14/16 07:00 Intake Total 0 ml Output Total 2915 ml Balance -2915 ml Intake Oral 0 ml Output Urine Total 1575 ml Gastric Drainage Total 750 ml Drainage Total 590 ml Physical Exam Abdomen: Other (NG) Heart: Regular rate, Normal S1, Normal S2, No murmurs, Gallops Extremities: No clubbing, No cyanosis, No edema, Normal pulses, No tenderness/ swelling General: Alert, Oriented X3, Cooperative, No acute distress Lungs: Clear to auscultation, Normal air movement Psych/Mental Status: Mental status NL, Mood NL Diagnosis RENAL FAILURE: Acute (Acute tubular necrosis) Plan Plan of Care HE IS IMPROVING DAILY, WILL NOT NEED DIALYSIS TODAY. SUPP K+ Comment Review of Relevant I have reviewed the following items jacqueline (where applicable) has been applied. Labs Laboratory Tests Test 10/12/16 15:31 10/12/16 16:28 10/12/16 20:08 10/12/16 21:30 Glucose (Fingerstick) 261 mg/dL (70-99) 146 mg/dL (70-99) 114 mg/dL (70-99) Hemoglobin 11.4 g/dL (13.0-17.5) Hematocrit 33.1 % (39.0-53.0) Prothrombin Time 16.6 SEC (11.7-14.0) Prothromb Time International Ratio 1.4 (0.8-1.1) Test 10/13/16 07:23 10/13/16 09:15 10/13/16 11:15 10/13/16 15:57 Glucose (Fingerstick) 341 mg/dL (70-99) 341 mg/dL (70-99) 56 mg/dL (70-99) Sodium Level 129 mmol/L (136-145) Potassium Level 4.7 mmol/L (3.5-5.1) Chloride Level 84 mmol/L (98-107) Carbon Dioxide Level 33 mmol/L (21-32) Anion Gap 12 (6-14) Blood Urea Nitrogen 112 mg/dL (8-26) Creatinine 5.2 mg/dL (0.7-1.3) Estimated GFR (Cockcroft-Gault) 11.4 Glucose Level 345 mg/dL (70-99) Calcium Level 7.8 mg/dL (8.5-10.1) Test 10/13/16 17:41 10/13/16 19:51 10/13/16 20:59 10/14/16 00:46 Glucose (Fingerstick) 72 mg/dL (70-99) 66 mg/dL (70-99) 103 mg/dL (70-99) 65 mg/dL (70-99) Test 10/14/16 01:32 10/14/16 04:15 10/14/16 04:20 10/14/16 07:35 Glucose (Fingerstick) 121 mg/dL (70-99) 77 mg/dL (70-99) 77 mg/dL (70-99) Hemoglobin 10.8 g/dL (13.0-17.5) Sodium Level 137 mmol/L (136-145) Potassium Level 3.2 mmol/L (3.5-5.1) Chloride Level 96 mmol/L (98-107) Carbon Dioxide Level 36 mmol/L (21-32) Anion Gap 5 (6-14) Blood Urea Nitrogen 91 mg/dL (8-26) Creatinine 3.7 mg/dL (0.7-1.3) Estimated GFR (Cockcroft-Gault) 16.8 Glucose Level 75 mg/dL (70-99) Calcium Level 7.1 mg/dL (8.5-10.1) Phosphorus Level 4.6 mg/dL (2.6-4.7) Magnesium Level 2.6 mg/dL (1.8-2.4) Albumin 2.1 g/dL (3.4-5.0) Test 10/14/16 11:13 Glucose (Fingerstick) 88 mg/dL (70-99) Laboratory Tests Test 10/13/16 15:57 10/13/16 17:41 10/13/16 19:51 10/13/16 20:59 Glucose (Fingerstick) 56 mg/dL (70-99) 72 mg/dL (70-99) 66 mg/dL (70-99) 103 mg/dL (70-99) Test 10/14/16 00:46 10/14/16 01:32 10/14/16 04:15 10/14/16 04:20 Glucose (Fingerstick) 65 mg/dL (70-99) 121 mg/dL (70-99) 77 mg/dL (70-99) Hemoglobin 10.8 g/dL (13.0-17.5) Sodium Level 137 mmol/L (136-145) Potassium Level 3.2 mmol/L (3.5-5.1) Chloride Level 96 mmol/L (98-107) Carbon Dioxide Level 36 mmol/L (21-32) Anion Gap 5 (6-14) Blood Urea Nitrogen 91 mg/dL (8-26) Creatinine 3.7 mg/dL (0.7-1.3) Estimated GFR (Cockcroft-Gault) 16.8 Glucose Level 75 mg/dL (70-99) Calcium Level 7.1 mg/dL (8.5-10.1) Phosphorus Level 4.6 mg/dL (2.6-4.7) Magnesium Level 2.6 mg/dL (1.8-2.4) Albumin 2.1 g/dL (3.4-5.0) Test 10/14/16 07:35 10/14/16 11:13 Glucose (Fingerstick) 77 mg/dL (70-99) 88 mg/dL (70-99) Microbiology 10/12/16 Blood Culture - Preliminary, Resulted NO GROWTH AFTER 2 DAYS 10/12/16 Gram Stain - Final, Complete Medications Current Medications Piperacillin Sod/ Tazobactam Sod 3.375 gm/Sodium Chloride 50 ml @ 100 mls/hr Q6HRS IV Last administered on 10/12/16 14:05; Start 10/12/16 at 12:00; Stop 10/12 at 16:42; Status DC Potassium Chloride/Dextrose/ Sod Cl 1,000 ml @ 125 mls/hr Q8H IV Last administered on 10/13/16 04:06; Start 10/12/16 at 11:45; Stop 10/13/16 at 07:44; Status DC Vancomycin HCl 1 gm/Sodium Chloride 250 ml @ 250 mls/hr 1X ONCE IV Last administered on 10/12/16 14:46; Start 10/12/16 at 11:45; Stop 10/12/16 at 12:44; Status DC Pneumococcal Polyvalent Vaccine (Pneumovax 23) 0.5 ml ONCE ONCE VAX IM Last administered on 10/13/16 09:10; Start 10/12/16 at 14:00; Stop 10/12/16 at 14:01; Status DC Ondansetron HCl (Zofran) 4 mg PRN Q6HRS PRN IV NAUSEA/VOMITING; Start 10/12/16 at 12:45; Stop 10/13/16 at 12:44; Status DC Fentanyl Citrate (Fentanyl 2ml Vial) 25 mcg PRN Q5MIN PRN IV MILD PAIN; Start 10/12/16 at 12:45; Stop 10/13/16 at 12:44; Status DC Fentanyl Citrate (Fentanyl 2ml Vial) 50 mcg PRN Q5MIN PRN IV MODERATE PAIN; Start 10/12/16 at 12:45; Stop 10/13/16 at 12:44; Status DC Morphine Sulfate 1 mg PRN Q10MIN PRN IV SEVERE PAIN; Start 10/12/16 at 12:45; Stop 10/13/16 at 12:44; Status DC Ringer's Solution 1,000 ml @ 30 mls/hr Q24H IV Last administered on 10/12/16t 13:30; Start 10/12/16 at 12:42; Stop 10/13/16 at 00:41; Status DC Lidocaine HCl 2 ml PRN 1X PRN ID PRIOR TO IV START; Start 10/12/16 at 12:45; Stop 10/13/16 at 12:44; Status DC Hydromorphone HCl (Dilaudid) 0.5 mg PRN Q10MIN PRN IV SEV PAIN, Second choice; Start 10/12/16 at 12:45; Stop 10/12/16 at 13:00; Status DC Prochlorperazine Edisylate (Compazine) 5 mg PACU PRN PRN IV NAUSEA, MRX1; Start 10/12/16 at 12:45; Stop 10/13/16 at 12:44; Status DC Insulin Aspart (NovoLOG VIAL) 6 unit 1X ONCE SQ ; Start 10/12/16 at 12:45; Stop 10/12/16 at 12:46; Status DC Sevoflurane (Ultane) 90 ml STK-MED ONCE IH ; Start 10/12/16 at 12:46; Stop at 12:47; Status DC Ketorolac Tromethamine (Toradol For Or Only) 60 mg STK-MED ONCE .ROUTE ; Start 10/12/16 at 12:47; Stop 10/13/16 at 11:44; Status DC Fentanyl Citrate (Fentanyl 2ml Vial) 100 mcg STK-MED ONCE .ROUTE ; Start at 12:47; Stop 10/12/16 at 12:48; Status DC Glycopyrrolate (Robinul) 1 mg STK-MED ONCE .ROUTE ; Start 10/12/16 at 12:47; Stop 10/12/16 at 12:48; Status DC Neostigmine Methylsulfate 5 mg STK-MED ONCE .ROUTE ; Start 10/12/16 at 12:48; Stop 10/12/16 at 12:49; Status DC Succinylcholine Chloride (Anectine) 200 mg STK-MED ONCE .ROUTE ; Start 10/12/16 at 12:48; Stop 10/12/16 at 12:49; Status DC Propofol 20 ml @ As Directed STK-MED ONCE IV ; Start 10/12/16 at 12:48; Stop 10/12 at 12:49; Status DC Ondansetron HCl (Zofran) 4 mg STK-MED ONCE .ROUTE ; Start 10/12/16 at 12:48; Stop 10/12/16 at 12:49; Status DC Dexamethasone Sodium Phosphate (Decadron) 20 mg STK-MED ONCE .ROUTE ; Start 10/12 at 12:48; Stop 10/12/16 at 12:49; Status DC Lidocaine HCl (Lidocaine Pf 2% Vial) 5 ml STK-MED ONCE .ROUTE ; Start 10/12/16 at 12:48; Stop 10/12/16 at 12:49; Status DC Ondansetron HCl (Zofran) 4 mg PRN Q6HRS PRN IV NAUSEA/VOMITING; Start 10/12/16 at 13:00; Stop 10/13/16 at 09:09; Status DC Hydromorphone HCl (Dilaudid) 0.6 mg PRN Q3HRS PRN IVP PAIN; Start 10/12/16 at 13 :00 Insulin Aspart (NovoLOG) 8 units 1X ONCE SQ Last administered on 10/12/16 13: 50; Start 10/12/16 at 13:00; Stop 10/12/16 at 13:02; Status DC Insulin Aspart (NovoLOG) 0-7 UNITS TIDWMEALS SQ ; Start 10/12/16 at 17:00; Stop 10/13/16 at 08:51; Status DC Dextrose (Dextrose 50%-Water Syringe) 12.5 gm PRN Q15MIN PRN IV SEE COMMENTS; Start 10/12/16 at 13:00; Status Cancel Phenylephrine HCl 1 mg STK-MED ONCE IV ; Start 10/12/16 at 14:40; Stop 10/12/16 at 14:41; Status DC Morphine Sulfate 10 mg STK-MED ONCE .ROUTE ; Start 10/12/16 at 14:58; Stop at 14:59; Status DC Fentanyl Citrate (Fentanyl 2ml Vial) 100 mcg STK-MED ONCE .ROUTE ; Start at 16:09; Stop 10/12/16 at 16:10; Status DC Diphenhydramine HCl (Benadryl) 25 mg PRN Q6HRS PRN IV ITCHING; Start 10/12/16 at 16:30 Enoxaparin Sodium (Lovenox 30mg Syringe) 30 mg Q24H SQ Last administered on 10/13 11:35; Start 10/13/16 at 09:00; Stop 10/13/16 at 14:26; Status DC Sodium Chloride (Normal Saline Flush) 3 ml QSHIFT PRN IV AFTER MEDS AND BLOOD DRAWS; Start 10/12/16 at 16:30 Potassium Chloride/Sodium Chloride 1,000 ml @ 100 mls/hr Q10H IV ; Start at 17:00; Stop 10/12/16 at 17:00; Status DC Hydromorphone HCl 30 ml @ 0 mls/hr CONT PRN PRN IV PROTOCOL Last administered on 10/12/16 17:55; Start 10/12/16 at 16:30 Ondansetron HCl (Zofran) 4 mg PRN Q6HRS PRN IV NAUESA, 1ST CHOICE; Start at 16:30 Throat Lozenges (Chloraseptic) 1 spray PRN Q2HR PRN PO SORE THROAT; Start at 16:45 Throat Lozenges (Cepacol Sore Throat Lozenge) 1 kathe PRN Q2HRS PRN PO SORE THROAT; Start 10/12/16 at 16:45 Piperacillin Sod/ Tazobactam Sod 2.25 gm/Sodium Chloride 50 ml @ 100 mls/hr Q8HRS IV Last administered on 10/14/16 05:47; Start 10/12/16 at 22:00 Sodium Chloride 1,000 ml @ 150 mls/hr Q6H40M IV Last administered on 10/13/16 11:36; Start 10/12/16 at 17:00; Stop 10/13/16 at 11:44; Status DC Lidocaine/ Epinephrine (Xylocaine 1%-Epi 1:100,000) 20 ml 1X ONCE INJ Last administered on 10/12/16 22:00; Start 10/12/16 at 22:00; Stop 10/12/16 at 22:01; Status DC Lidocaine/ Epinephrine (Xylocaine 1%-Epi 1:200,000) 30 ml 1X ONCE INJ ; Start 10/12/16 at 22:00; Stop 10/12/16 at 22:01; Status Cancel Silver Nitrate/ Potassium Nitrate 1 each 1X ONCE TP Last administered on 21:45; Start 10/12/16 at 21:45; Stop 10/12/16 at 21:46; Status DC Cellulose 1 each 1X ONCE TP Last administered on 10/12/16 23:11; Start at 23:30; Stop 10/12/16 at 23:31; Status DC Dextrose/Sodium Chloride 500 ml @ 0 mls/hr 1X ONCE IV Last administered on 10/13 09:10; Start 10/13/16 at 09:00; Stop 10/13/16 at 09:01; Status DC Insulin Detemir (Levemir) 20 units DAILY10 SQ Last administered on 10/13/16 09: 15; Start 10/13/16 at 10:00; Stop 10/14/16 at 11:25; Status DC Insulin Aspart (NovoLOG) 0-9 UNITS TIDWMEALS SQ Last administered on 10/13/16 11:43; Start 10/13/16 at 09:00 Dextrose (Dextrose 50%-Water Syringe) 12.5 gm PRN Q15MIN PRN IV SEE COMMENTS; Start 10/13/16 at 08:45 Insulin Aspart (NovoLOG) 10 units 1X ONCE SQ Last administered on 10/13/16 09: 15; Start 10/13/16 at 09:00; Stop 10/13/16 at 09:01; Status DC Famotidine (Pepcid) 20 mg QHS IVP Last administered on 10/13/16 20:52; Start at 09:00 Magnesium Sulfate/ Dextrose 50 ml @ 25 mls/hr PRN DAILY PRN IV for Mag < 1.7 on am labs; Start 10/13/16 at 11:45 Sodium Chloride 1,000 ml @ 150 mls/hr Q6H40M IV Last administered on 10/14/16 12:30; Start 10/13/16 at 12:30 Heparin Sodium (Porcine) (Heparin Sodium) 10,000 unit STK-MED ONCE .ROUTE ; Start 10/13/16 at 14:12; Stop 10/13/16 at 14:13; Status DC Lidocaine/Sodium Bicarbonate (Buffered Lidocaine 1%) 20 ml STK-MED ONCE IJ ; Start 10/13/16 at 14:12; Stop 10/13/16 at 14:13; Status DC Heparin Sodium/ Sodium Chloride 500 ml @ As Directed STK-MED ONCE .ROUTE ; Start 10/13/16 at 14:12; Stop 10/13/16 at 14:13; Status DC Heparin Sodium (Porcine) (Heparin Sq) 5,000 unit Q8HRS SQ ; Start 10/14/16 at 14: 00 Lidocaine/Sodium Bicarbonate (Buffered Lidocaine 1%) 20 ml 1X ONCE IJ Last administered on 10/13/16 14:45; Start 10/13/16 at 14:45; Stop 10/13/16 at 14:46; Status DC Heparin Sodium (Porcine) (Heparin Sodium) 2,600 unit 1X ONCE INT CAT Last administered on 10/13/16 14:45; Start 10/13/16 at 14:45; Stop 10/13/16 at 14:46; Status DC Dextrose 250 ml @ 1,000 mls/hr PRN Q15MIN PRN IV SEE COMMENTS Last administered on 10/14/16 00:51; Start 10/13/16 at 16:45 Dextrose 250 ml @ 1,000 mls/hr 1X ONCE IV Last administered on 10/13/16 16:47 ; Start 10/13/16 at 16:45; Stop 10/13/16 at 16:59; Status DC Dextrose 1,000 ml @ 75 mls/hr 1X ONCE IV ; Start 10/13/16 at 20:30; Stop at 09:49; Status Cancel Dextrose 250 ml @ 1,000 mls/hr Q15M IV Last administered on 10/13/16 20:11; Start 10/13/16 at 20:30; Stop 10/13/16 at 21:16; Status DC Insulin Detemir (Levemir) 10 units QHS SQ ; Start 10/14/16 at 21:00; Stop at 21:00; Status DC Info (PHARMACY MONITORING -- do not chart) 1 each PRN DAILY PRN MC SEE COMMENTS ; Start 10/14/16 at 13:45 Active Scripts Active Reported Spironolactone 50 Mg Tablet 1 Tab PO BID Metformin Hcl 1,000 Mg Tablet 1,000 Mg PO [id number] Amlodipine Besylate 5 Mg Tablet 1 Tab PO DAILY Vitals/I & O Vital Sign - Last 24 Hours 10/13/16 10/13/16 10/13/16 10/13/16 15:06 19:00 20:00 23:00 Temp 97.4 97.9 96.6 97.4 97.9 96.6 Pulse 75 83 79 Resp 16 18 18 B/P (MAP) 109/75 (86) 112/74 (87) 120/71 (87) Pulse Ox 99 92 95 O2 Delivery Room Air Room Air Nasal Cannula Nasal Cannula O2 Flow Rate 2.0 2.0 10/14/16 10/14/16 10/14/16 10/14/16 03:00 07:00 08:00 11:00 Temp 95.7 96.9 97.1 95.7 96.9 97.1 Pulse 78 81 82 Resp 18 20 20 B/P (MAP) 113/72 (86) 150/84 (106) 143/86 (105) Pulse Ox 97 96 95 O2 Delivery Nasal Cannula Nasal Cannula Nasal Cannula Nasal Cannula O2 Flow Rate 2.0 2.0 2.0 2.0 Intake and Output 10/13/16 10/13/1617 15:00 23:00 07:00 Intake Total 0 ml 0 ml Output Total 530 ml 860 ml 1525 ml Balance -530 ml -860 ml -1525 ml Nutrition Consultation Dietary Evaluation: Recommendations by RD: PPN/TPN Comments: rec ppn for short term nutrition REC adv diet per GI to ADA, Renal REC mvi and vit c for wound healing Expected Outcomes/Goals: to meet > 50% est nutr needs within next 48-72 hrs Malnutrition Findings: Body Fat Depletion (Non Severe: Mild Depletion Weight Status: Appropriate MITZI PRO MD Oct 14, 2016 14:39
[2016-10-14] MEDS: HEPARIN PF for SUB-Q USE 5,000 UNIT/0.5 ML VIAL. SQ SCH ×2 (14:56→21:51)
[2016-10-14 15:00] VITALS: BP 134/78
[2016-10-14] MEDS: POTASSIUM CHLORIDE 10MEQ 100 ML IV SCH ×2 (15:33→16:51)
[2016-10-14] MEDS: HYDROmorphone 2 MG/ML VIAL IVP PRN (18:50)
[2016-10-14 19:00] VITALS: BP 117/68
[2016-10-14] MEDS ORDERED: INSULIN DETEMIR 300 UNITS/3 ML INSULN.PEN. SQ SCH (21:00)
[2016-10-14] MEDS: FAMOTIDINE 20 MG/2 ML VIAL IVP SCH (21:20)
[2016-10-14 23:00] VITALS: BP 123/77
[2016-10-15 03:00] VITALS: BP 136/85
[2016-10-15] MEDS: IV NORMAL SALINE 1000ML BAG 1,000 ML IV SCH ×3 (05:17→17:50)
[2016-10-15] MEDS: PIPERACILLIN/TAZOBACTAM 2.25 GM in IV NORMAL SALINE 50ML 50 ML IV SCH ×3 (05:17→21:35)
[2016-10-15] MEDS: HEPARIN PF for SUB-Q USE 5,000 UNIT/0.5 ML VIAL. SQ SCH ×3 (05:44→21:38)
[2016-10-15 05:46] LABS: ALBUMIN 2.1 g/dL (3.4-5.0); ALBUMIN/GLOBULIN RATIO 0.6 (1.0-1.7); CREATININE 2.2 mg/dL (0.7-1.3); GFR 30.7; MAGNESIUM 2.6 mg/dL (1.8-2.4); PHOSPHORUS 3.7 mg/dL (2.6-4.7); TOTAL BILIRUBIN 0.5 mg/dL (0.2-1.0); TOTAL PROTEIN 5.9 g/dL (6.4-8.2)
[2016-10-15 07:00] VITALS: BP 150/94
[2016-10-15] MEDS: INSULIN ASPART 300 UNITS/3 ML INSULN.PEN SQ SCH ×3 (08:00→17:09)
[2016-10-15 11:00] VITALS: BP 135/86
--- NOTE | 2016-10-15 11:22 | PDOC ---
SUBJECTIVE Subjective in chair , looks better , pulled NGT no nausea, feels like eating OBJECTIVE Vital Signs Vital Signs Date Time Temp Pulse Resp B/P (MAP) Pulse Ox O2 Delivery O2 Flow Rate FiO2 10/15/16 07:00 98.4 83 20 150/94 (112) 90 Nasal Cannula 2.0 98.4 10/15/16 03:00 98.9 86 18 136/85 (102) 90 Nasal Cannula 2.0 98.9 10/14/16 23:00 97.7 86 18 123/77 (92) 90 Nasal Cannula 2.0 97.7 10/14/16 20:00 Room Air 10/14/16 19:20 18 Nasal Cannula 1.0 10/14/16 19:00 98.2 83 16 117/68 (84) 90 Nasal Cannula 2.0 98.2 10/14/16 18:50 18 Nasal Cannula 1.0 10/14/16 15:00 98.7 80 20 134/78 (96) 92 Nasal Cannula 2.0 98.7 I & O Intake and Output 10/15/16 07:00 Intake Total 2954.75 ml Output Total 4520 ml Balance -1565.25 ml Intake Oral 0 ml IV Total 2954.75 ml Output Urine Total 2350 ml Gastric Drainage Total 1100 ml Drainage Total 1070 ml PHYSICAL EXAM Physical Exam abd less tender ext noedema heart RRR lungs clear ASSESSMENT/PLAN Assessment/Plan 1-postop day #4 for incarcerated umbilical hernia, pulled NGT out no nausea ? advance diet 2-acute renal failure improving 3-hyponatremia resolved 4- hyperkalemia improved Problems: COMMENT Lab Laboratory Tests Test 10/14/16 17:00 10/14/16 20:26 10/15/16 00:21 10/15/16 04:07 Glucose (Fingerstick) 115 mg/dL (70-99) 107 mg/dL (70-99) 136 mg/dL (70-99) 149 mg/dL (70-99) Test 10/15/16 04:55 10/15/16 08:06 Sodium Level 142 mmol/L (136-145) Potassium Level 4.0 mmol/L (3.5-5.1) Chloride Level 102 mmol/L (98-107) Carbon Dioxide Level 28 mmol/L (21-32) Anion Gap 12 (6-14) Blood Urea Nitrogen 55 mg/dL (8-26) Creatinine 2.2 mg/dL (0.7-1.3) Estimated GFR (Cockcroft-Gault) 30.7 BUN/Creatinine Ratio 25 (6-20) Glucose Level 159 mg/dL (70-99) Calcium Level 7.0 mg/dL (8.5-10.1) Phosphorus Level 3.7 mg/dL (2.6-4.7) Magnesium Level 2.6 mg/dL (1.8-2.4) Total Bilirubin 0.5 mg/dL (0.2-1.0) Aspartate Amino Transf (AST/SGOT) 23 U/L (15-37) Alanine Aminotransferase (ALT/SGPT) 7 U/L (16-63) Alkaline Phosphatase 133 U/L (46-116) Total Protein 5.9 g/dL (6.4-8.2) Albumin 2.1 g/dL (3.4-5.0) Albumin/Globulin Ratio 0.6 (1.0-1.7) Glucose (Fingerstick) 144 mg/dL (70-99) BEATRICE HADLEY MD Oct 15, 2016 11:22
--- NOTE | 2016-10-15 14:27 | PDOC ---
SURGICAL PROGRESS NOTE Subjective Pt without c/o, NGT inadvertently pulled out, no N/V, passing some flatus Vital Signs Vital Signs Date Time Temp Pulse Resp B/P (MAP) Pulse Ox O2 Delivery O2 Flow Rate FiO2 10/15/16 11:00 98.3 86 20 135/86 (102) 92 Nasal Cannula 2.0 98.3 I&O Intake and Output 10/15/16 07:00 Intake Total 2954.75 ml Output Total 4520 ml Balance -1565.25 ml Intake Oral 0 ml IV Total 2954.75 ml Output Urine Total 2350 ml Gastric Drainage Total 1100 ml Drainage Total 1070 ml General: Alert, Oriented X3, Cooperative, No acute distress Abdomen: Soft, Other (VARUN serous-c/w cirrhosis) Labs Laboratory Tests Test 10/13/16 15:57 10/13/16 17:41 10/13/16 19:51 10/13/16 20:59 Glucose (Fingerstick) 56 mg/dL (70-99) 72 mg/dL (70-99) 66 mg/dL (70-99) 103 mg/dL (70-99) Test 10/14/16 00:46 10/14/16 01:32 10/14/16 04:15 10/14/16 04:20 Glucose (Fingerstick) 65 mg/dL (70-99) 121 mg/dL (70-99) 77 mg/dL (70-99) Hemoglobin 10.8 g/dL (13.0-17.5) Sodium Level 137 mmol/L (136-145) Potassium Level 3.2 mmol/L (3.5-5.1) Chloride Level 96 mmol/L (98-107) Carbon Dioxide Level 36 mmol/L (21-32) Anion Gap 5 (6-14) Blood Urea Nitrogen 91 mg/dL (8-26) Creatinine 3.7 mg/dL (0.7-1.3) Estimated GFR (Cockcroft-Gault) 16.8 Glucose Level 75 mg/dL (70-99) Calcium Level 7.1 mg/dL (8.5-10.1) Phosphorus Level 4.6 mg/dL (2.6-4.7) Magnesium Level 2.6 mg/dL (1.8-2.4) Albumin 2.1 g/dL (3.4-5.0) Test 10/14/16 07:35 10/14/16 11:13 10/14/16 17:00 10/14/16 20:26 Glucose (Fingerstick) 77 mg/dL (70-99) 88 mg/dL (70-99) 115 mg/dL (70-99) 107 mg/dL (70-99) Test 10/15/16 00:21 10/15/16 04:07 10/15/16 04:55 10/15/16 08:06 Glucose (Fingerstick) 136 mg/dL (70-99) 149 mg/dL (70-99) 144 mg/dL (70-99) Sodium Level 142 mmol/L (136-145) Potassium Level 4.0 mmol/L (3.5-5.1) Chloride Level 102 mmol/L (98-107) Carbon Dioxide Level 28 mmol/L (21-32) Anion Gap 12 (6-14) Blood Urea Nitrogen 55 mg/dL (8-26) Creatinine 2.2 mg/dL (0.7-1.3) Estimated GFR (Cockcroft-Gault) 30.7 BUN/Creatinine Ratio 25 (6-20) Glucose Level 159 mg/dL (70-99) Calcium Level 7.0 mg/dL (8.5-10.1) Phosphorus Level 3.7 mg/dL (2.6-4.7) Magnesium Level 2.6 mg/dL (1.8-2.4) Total Bilirubin 0.5 mg/dL (0.2-1.0) Aspartate Amino Transf (AST/SGOT) 23 U/L (15-37) Alanine Aminotransferase (ALT/SGPT) 7 U/L (16-63) Alkaline Phosphatase 133 U/L (46-116) Total Protein 5.9 g/dL (6.4-8.2) Albumin 2.1 g/dL (3.4-5.0) Albumin/Globulin Ratio 0.6 (1.0-1.7) Test 10/15/16 12:01 Glucose (Fingerstick) 184 mg/dL (70-99) Laboratory Tests Test 10/14/16 17:00 10/14/16 20:26 10/15/16 00:21 10/15/16 04:07 Glucose (Fingerstick) 115 mg/dL (70-99) 107 mg/dL (70-99) 136 mg/dL (70-99) 149 mg/dL (70-99) Test 10/15/16 04:55 10/15/16 08:06 10/15/16 12:01 Sodium Level 142 mmol/L (136-145) Potassium Level 4.0 mmol/L (3.5-5.1) Chloride Level 102 mmol/L (98-107) Carbon Dioxide Level 28 mmol/L (21-32) Anion Gap 12 (6-14) Blood Urea Nitrogen 55 mg/dL (8-26) Creatinine 2.2 mg/dL (0.7-1.3) Estimated GFR (Cockcroft-Gault) 30.7 BUN/Creatinine Ratio 25 (6-20) Glucose Level 159 mg/dL (70-99) Calcium Level 7.0 mg/dL (8.5-10.1) Phosphorus Level 3.7 mg/dL (2.6-4.7) Magnesium Level 2.6 mg/dL (1.8-2.4) Total Bilirubin 0.5 mg/dL (0.2-1.0) Aspartate Amino Transf (AST/SGOT) 23 U/L (15-37) Alanine Aminotransferase (ALT/SGPT) 7 U/L (16-63) Alkaline Phosphatase 133 U/L (46-116) Total Protein 5.9 g/dL (6.4-8.2) Albumin 2.1 g/dL (3.4-5.0) Albumin/Globulin Ratio 0.6 (1.0-1.7) Glucose (Fingerstick) 144 mg/dL (70-99) 184 mg/dL (70-99) Assessment/Plan s/p SBR will start clears Problems: QUIN BELTRAN MD Oct 15, 2016 14:27
[2016-10-15 15:00] VITALS: BP 135/76
[2016-10-15 19:05] VITALS: BP 163/91
[2016-10-15] MEDS: FAMOTIDINE 20 MG/2 ML VIAL IVP SCH (20:56)
[2016-10-15 23:05] VITALS: BP 163/87
[2016-10-16] MEDS: IV NORMAL SALINE 1000ML BAG 1,000 ML IV SCH (02:08)
[2016-10-16 03:03] VITALS: BP 139/84
[2016-10-16 06:16] LABS: HEMOGLOBIN 11.1 g/dL (13.0-17.5); RED BLOOD COUNT 3.81 x10^6/uL (4.30-5.70); RED CELL DISTRIBUTION WIDTH 14.7 % (11.5-14.5); WHITE BLOOD COUNT 7.6 x10^3/uL (4.0-11.0)
[2016-10-16] MEDS: PIPERACILLIN/TAZOBACTAM 2.25 GM in IV NORMAL SALINE 50ML 50 ML IV SCH (06:18)
[2016-10-16] MEDS: HEPARIN PF for SUB-Q USE 5,000 UNIT/0.5 ML VIAL. SQ SCH ×2 (06:22→18:08)
[2016-10-16 06:37] LABS: ALBUMIN 1.9 g/dL (3.4-5.0); CALCIUM 6.6 mg/dL (8.5-10.1); CREATININE 1.5 mg/dL (0.7-1.3); GFR 47.7; PHOSPHORUS 1.6 mg/dL (2.6-4.7); POTASSIUM 3.2 mmol/L (3.5-5.1)
[2016-10-16 07:00] VITALS: BP 104/68
--- NOTE | 2016-10-16 08:36 | PDOC ---
Provider Note Provider Note creat down to 1.5, rest ok- will add low dose levemir bid, change iv fluid re lower K+- zosyn for citrobacter LEANN BOB MD Oct 16, 2016 08:36
[2016-10-16] MEDS: POTASSIUM CL 20MEQ D5-0.45NACL 1,000 ML IV SCH ×2 (09:15→17:52)
--- NOTE | 2016-10-16 09:17 | PDOC ---
SURGICAL PROGRESS NOTE Subjective taking clears no emesis some flatus, no stool Vital Signs Vital Signs Date Time Temp Pulse Resp B/P (MAP) Pulse Ox O2 Delivery O2 Flow Rate FiO2 10/16/16 07:00 97.6 80 20 104/68 (80) 95 Room Air 97.6 10/15/16 23:05 2.0 I&O Intake and Output 10/16/16 07:00 Intake Total 2542.75 ml Output Total 2360 ml Balance 182.75 ml Intake Oral 690 ml IV Total 1852.75 ml Output Urine Total 1550 ml Drainage Total 810 ml # Bowel Movements 1 General: Alert, Oriented X3, Cooperative, No acute distress Abdomen: Soft, Other (VARUN serous, incision clean, wound packed ) Labs Laboratory Tests Test 10/14/16 11:13 10/14/16 17:00 10/14/16 20:26 10/15/16 00:21 Glucose (Fingerstick) 88 mg/dL (70-99) 115 mg/dL (70-99) 107 mg/dL (70-99) 136 mg/dL (70-99) Test 10/15/16 04:07 10/15/16 04:55 10/15/16 08:06 10/15/16 12:01 Glucose (Fingerstick) 149 mg/dL (70-99) 144 mg/dL (70-99) 184 mg/dL (70-99) Sodium Level 142 mmol/L (136-145) Potassium Level 4.0 mmol/L (3.5-5.1) Chloride Level 102 mmol/L (98-107) Carbon Dioxide Level 28 mmol/L (21-32) Anion Gap 12 (6-14) Blood Urea Nitrogen 55 mg/dL (8-26) Creatinine 2.2 mg/dL (0.7-1.3) Estimated GFR (Cockcroft-Gault) 30.7 BUN/Creatinine Ratio 25 (6-20) Glucose Level 159 mg/dL (70-99) Calcium Level 7.0 mg/dL (8.5-10.1) Phosphorus Level 3.7 mg/dL (2.6-4.7) Magnesium Level 2.6 mg/dL (1.8-2.4) Total Bilirubin 0.5 mg/dL (0.2-1.0) Aspartate Amino Transf (AST/SGOT) 23 U/L (15-37) Alanine Aminotransferase (ALT/SGPT) 7 U/L (16-63) Alkaline Phosphatase 133 U/L (46-116) Total Protein 5.9 g/dL (6.4-8.2) Albumin 2.1 g/dL (3.4-5.0) Albumin/Globulin Ratio 0.6 (1.0-1.7) Test 10/15/16 16:24 10/15/16 20:41 10/16/16 00:05 10/16/16 03:55 Glucose (Fingerstick) 308 mg/dL (70-99) 260 mg/dL (70-99) 226 mg/dL (70-99) 231 mg/dL (70-99) Test 10/16/16 06:05 10/16/16 07:27 White Blood Count 7.6 x10^3/uL (4.0-11.0) Red Blood Count 3.81 x10^6/uL (4.30-5.70) Hemoglobin 11.1 g/dL (13.0-17.5) Hematocrit 33.0 % (39.0-53.0) Mean Corpuscular Volume 87 fL (79-100) Mean Corpuscular Hemoglobin 29 pg (25-35) Mean Corpuscular Hemoglobin Concent 34 g/dL (31-37) Red Cell Distribution Width 14.7 % (11.5-14.5) Platelet Count 282 x10^3/uL (140-400) Sodium Level 137 mmol/L (136-145) Potassium Level 3.2 mmol/L (3.5-5.1) Chloride Level 103 mmol/L (98-107) Carbon Dioxide Level 29 mmol/L (21-32) Anion Gap 5 (6-14) Blood Urea Nitrogen 32 mg/dL (8-26) Creatinine 1.5 mg/dL (0.7-1.3) Estimated GFR (Cockcroft-Gault) 47.7 Glucose Level 224 mg/dL (70-99) Calcium Level 6.6 mg/dL (8.5-10.1) Phosphorus Level 1.6 mg/dL (2.6-4.7) Magnesium Level 2.3 mg/dL (1.8-2.4) Albumin 1.9 g/dL (3.4-5.0) Glucose (Fingerstick) 251 mg/dL (70-99) Laboratory Tests Test 10/15/16 12:01 10/15/16 16:24 10/15/16 20:41 10/16/16 00:05 Glucose (Fingerstick) 184 mg/dL (70-99) 308 mg/dL (70-99) 260 mg/dL (70-99) 226 mg/dL (70-99) Test 10/16/16 03:55 10/16/16 06:05 10/16/16 07:27 Glucose (Fingerstick) 231 mg/dL (70-99) 251 mg/dL (70-99) White Blood Count 7.6 x10^3/uL (4.0-11.0) Red Blood Count 3.81 x10^6/uL (4.30-5.70) Hemoglobin 11.1 g/dL (13.0-17.5) Hematocrit 33.0 % (39.0-53.0) Mean Corpuscular Volume 87 fL (79-100) Mean Corpuscular Hemoglobin 29 pg (25-35) Mean Corpuscular Hemoglobin Concent 34 g/dL (31-37) Red Cell Distribution Width 14.7 % (11.5-14.5) Platelet Count 282 x10^3/uL (140-400) Sodium Level 137 mmol/L (136-145) Potassium Level 3.2 mmol/L (3.5-5.1) Chloride Level 103 mmol/L (98-107) Carbon Dioxide Level 29 mmol/L (21-32) Anion Gap 5 (6-14) Blood Urea Nitrogen 32 mg/dL (8-26) Creatinine 1.5 mg/dL (0.7-1.3) Estimated GFR (Cockcroft-Gault) 47.7 Glucose Level 224 mg/dL (70-99) Calcium Level 6.6 mg/dL (8.5-10.1) Phosphorus Level 1.6 mg/dL (2.6-4.7) Magnesium Level 2.3 mg/dL (1.8-2.4) Albumin 1.9 g/dL (3.4-5.0) Assessment/Plan POD#4 SBR continue clears, await improved bowel function 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
[2016-10-16] MEDS: INSULIN ASPART 300 UNITS/3 ML INSULN.PEN SQ SCH ×3 (09:33→18:09)
[2016-10-16] MEDS: INSULIN DETEMIR 300 UNITS/3 ML INSULN.PEN. SQ SCH ×2 (09:34→18:10)
[2016-10-16 11:00] VITALS: BP 155/94
--- NOTE | 2016-10-16 11:54 | PDOC ---
Renal-Progress Notes Subjective Notes Notes FEELING BETTER History of Present Illness Hx of present illness STABLE Vitals Vitals Vital Signs Date Time Temp Pulse Resp B/P (MAP) Pulse Ox O2 Delivery O2 Flow Rate FiO2 10/16/16 11:00 98.8 81 20 155/94 (114) 98 Room Air 98.8 10/15/16 23:05 2.0 Weight Weight [ ] I.O. Intake and Output Intake and Output 10/16/16 07:00 Intake Total 2542.75 ml Output Total 2360 ml Balance 182.75 ml Intake Oral 690 ml IV Total 1852.75 ml Output Urine Total 1550 ml Drainage Total 810 ml # Bowel Movements 1 Labs Labs Laboratory Tests Test 10/15/16 12:01 10/15/16 16:24 10/15/16 20:41 10/16/16 00:05 Glucose (Fingerstick) 184 mg/dL (70-99) 308 mg/dL (70-99) 260 mg/dL (70-99) 226 mg/dL (70-99) Test 10/16/16 03:55 10/16/16 06:05 10/16/16 07:27 10/16/16 11:07 Glucose (Fingerstick) 231 mg/dL (70-99) 251 mg/dL (70-99) 271 mg/dL (70-99) White Blood Count 7.6 x10^3/uL (4.0-11.0) Red Blood Count 3.81 x10^6/uL (4.30-5.70) Hemoglobin 11.1 g/dL (13.0-17.5) Hematocrit 33.0 % (39.0-53.0) Mean Corpuscular Volume 87 fL (79-100) Mean Corpuscular Hemoglobin 29 pg (25-35) Mean Corpuscular Hemoglobin Concent 34 g/dL (31-37) Red Cell Distribution Width 14.7 % (11.5-14.5) Platelet Count 282 x10^3/uL (140-400) Sodium Level 137 mmol/L (136-145) Potassium Level 3.2 mmol/L (3.5-5.1) Chloride Level 103 mmol/L (98-107) Carbon Dioxide Level 29 mmol/L (21-32) Anion Gap 5 (6-14) Blood Urea Nitrogen 32 mg/dL (8-26) Creatinine 1.5 mg/dL (0.7-1.3) Estimated GFR (Cockcroft-Gault) 47.7 Glucose Level 224 mg/dL (70-99) Calcium Level 6.6 mg/dL (8.5-10.1) Phosphorus Level 1.6 mg/dL (2.6-4.7) Magnesium Level 2.3 mg/dL (1.8-2.4) Albumin 1.9 g/dL (3.4-5.0) Micro Micro Microbiology 10/12/16 Blood Culture - Preliminary, Resulted NO GROWTH AFTER 3 DAYS 10/12/16 Gram Stain - Final, Complete Review of Systems Constitutional: yes: weakness, alert, oriented Eyes: Yes: no symptom reported Gastrointestional: Yes: nausea Genitourinary: Yes: no symptom reported Musculoskeletal: Yes: muscle stiffness Endocrine: Yes: no symptom reported Physical Exam General Appearance: no apparent distress Skin: warm Respiratory: bilateral CTA Heart: S1S2, RRR Abdomen: soft, bowel sounds present Genitourinary: bladder flat Extremities: pulses present Neurology: alert, oriented Musculoskeletal: Other (left 2nd toe amputation) Assessment Assessment IMP S/P REPAIR OF UMBILICAL HERNIA MILD HYPOKALEMIA ARISTEO-RECOVERING PLAN NO FURTHER DIALYSIS REPLACE K IF LABS STILL LOOK GOOD IN AM WILL D/C HIS RIGHT IJ DIALYSIS CATHETER CONT IVF'S WITH KCL MANJU PATE MD Oct 16, 2016 11:54
[2016-10-16] MEDS: PIPERACILLIN/TAZOBACTAM 3.375 GM in IV NORMAL SALINE 50ML 50 ML IV SCH ×3 (12:43→23:35)
--- NOTE | 2016-10-16 13:53 | PATHOLOGY ---
PATHOLOGY REPORT * * * * * * * * FINAL DIAGNOSIS: A. 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 - Serosal fibrosis. B. Segment of skin, subcutaneous tissue, and fibromembranous tissue, umbilical hernia repair: - Hernia sac showing focal necrosis and acute inflammation. (JPM:ankit;10/16/2016) REPORT ELECTRONICALLY SIGNED BY: Tavon Springer M.D. DATE/TIME: 10/16/2016 13:52 * * * * * * * * GROSS PATHOLOGY: A. The specimen is received in formalin labeled "Ryne Enrrique Ziggy, segment of small bowel, suture at distal end". Received is an unoriented segment of small bowel measuring 11.3 cm in length and ranging in diameter from 2.0 to 3.9 cm. Both margins are stapled closed in a suture is present at one end designating this as the distal aspect. The serosal surface is pink-jung to jung-jo in appearance, with the serosa being predominantly been across 95% of the specimen. The attached mesenteric fat measures 2.5 cm in thickness. The specimen is opened along the antimesenteric line to reveal light oj to dark brown mucosa with moderate architectural folds inked. Throughout the aspect where the serosal wall is thinned, the mucosa displays minimal architectural folding. No distinct nodules or lesions are noted grossly. The specimen is submitted representatively as follows: A1 proximal margin A2 distal margin A3-A4 commercial sales representative cross-sections of specimen. B. The specimen is received in formalin labeled "Ryne Enrrique Ziggy, umbilical skin and hernia sac". Received is an ellipse of pale jo to jung-jo, wrinkled skin with attached yellow-jo fibroadipose tissue and jung-oj fibromembranous tissue measuring 13.8 x 5.9 x 4.2 cm in greatest dimensions. Sectioning reveals the fibrous tissue to be necrotic in appearance. No distinct nodules or lesions are noted grossly. The specimen is submitted representatively in cassette B1. (CAA; 10/13/2016) INITIAL CPT CODE(S): A; 73367 B; 34715 Professional services performed by [facility] at [address] [address] Technical services performed by [facility] at [address] [place] [address], [address], [place] [address]. SPECIMEN(S) RECEIVED: A.Segment of small bowel sutured at distal end B.Umbilical skin and hernia sac CLINICAL HISTORY: None Provided PATIENT: RYNE URRUTIA /AGE: 12 1955 (Age: 61) PATIENT #: [id number] ALT CASE #: SPECIMEN COLLECTION DATE: 10/12/2016 SPECIMEN RECEIVED DATE: 10/13/2016 [facility] - [id number] [place] [address] - PHONE: [phone] * * * END OF REPORT * * *
[2016-10-16 15:10] VITALS: BP 110/72
[2016-10-16 19:00] VITALS: BP 112/72
[2016-10-16] MEDS: FAMOTIDINE 20 MG/2 ML VIAL IVP SCH (21:34)
[2016-10-16] MEDS ORDERED: INSULIN ASPART 300 UNITS/3 ML INSULN.PEN SQ ONE (22:00)
[2016-10-16] MEDS ORDERED: INSULIN DETEMIR 300 UNITS/3 ML INSULN.PEN. SQ ONE (22:00)
[2016-10-16 23:00] VITALS: BP 156/92
[2016-10-17 03:00] VITALS: BP 140/82
[2016-10-17] MEDS: POTASSIUM CL 20MEQ D5-0.45NACL 1,000 ML IV SCH ×2 (04:12→17:40)
[2016-10-17 04:49] LABS: ALBUMIN 1.6 g/dL (3.4-5.0); CREATININE 1.3 mg/dL (0.7-1.3); GFR 56.3; PHOSPHORUS 1.5 mg/dL (2.6-4.7); POTASSIUM 3.2 mmol/L (3.5-5.1)
[2016-10-17] MEDS ORDERED: INSULIN ASPART 300 UNITS/3 ML INSULN.PEN SQ ONE (05:00)
[2016-10-17] MEDS: PIPERACILLIN/TAZOBACTAM 3.375 GM in IV NORMAL SALINE 50ML 50 ML IV SCH ×3 (05:45→19:07)
[2016-10-17] MEDS: HEPARIN PF for SUB-Q USE 5,000 UNIT/0.5 ML VIAL. SQ SCH ×2 (05:46→19:13)
[2016-10-17] MEDS: INSULIN DETEMIR 300 UNITS/3 ML INSULN.PEN. SQ SCH ×2 (05:57→19:14)
[2016-10-17 07:00] VITALS: BP 137/87
[2016-10-17] MEDS: INSULIN ASPART 300 UNITS/3 ML INSULN.PEN SQ SCH ×3 (08:07→16:48)
--- NOTE | 2016-10-17 08:34 | PDOC ---
Provider Note Provider Note vss, good output- renal fx better , K+ still low- add po kcl , as diet improves - more levemir added, will resume metformin later if needed LEANN BOB MD Oct 17, 2016 08:34
[2016-10-17] MEDS: POTASSIUM CHLORIDE 10 MEQ TABLET.ER. PO SCH ×2 (09:03→19:08)
--- NOTE | 2016-10-17 10:49 | PDOC ---
SURGICAL PROGRESS NOTE Subjective POD 5 SBR, primary repair incarcerated/strangulated umbilical hernia would like more to eat, lynn out Vital Signs Vital Signs Date Time Temp Pulse Resp B/P (MAP) Pulse Ox O2 Delivery O2 Flow Rate FiO2 10/17/16 07:00 97.2 82 20 137/87 (104) 97 Room Air 97.2 I&O Intake and Output 10/17/16 07:00 Intake Total 3348 ml Output Total 2830 ml Balance 518 ml IV Total 853 ml Other 2495 ml Output Urine Total 1150 ml Drainage Total 1680 ml # Bowel Movements 4 PATIENT HAS A LYNN: Yes (will d/c today) General: Alert, Oriented X3, No acute distress Abdomen: Soft, Other (wound vac in place) Labs Laboratory Tests Test 10/15/16 12:01 10/15/16 16:24 10/15/16 20:41 10/16/16 00:05 Glucose (Fingerstick) 184 mg/dL (70-99) 308 mg/dL (70-99) 260 mg/dL (70-99) 226 mg/dL (70-99) Test 10/16/16 03:55 10/16/16 06:05 10/16/16 07:27 10/16/16 11:07 Glucose (Fingerstick) 231 mg/dL (70-99) 251 mg/dL (70-99) 271 mg/dL (70-99) White Blood Count 7.6 x10^3/uL (4.0-11.0) Red Blood Count 3.81 x10^6/uL (4.30-5.70) Hemoglobin 11.1 g/dL (13.0-17.5) Hematocrit 33.0 % (39.0-53.0) Mean Corpuscular Volume 87 fL (79-100) Mean Corpuscular Hemoglobin 29 pg (25-35) Mean Corpuscular Hemoglobin Concent 34 g/dL (31-37) Red Cell Distribution Width 14.7 % (11.5-14.5) Platelet Count 282 x10^3/uL (140-400) Sodium Level 137 mmol/L (136-145) Potassium Level 3.2 mmol/L (3.5-5.1) Chloride Level 103 mmol/L (98-107) Carbon Dioxide Level 29 mmol/L (21-32) Anion Gap 5 (6-14) Blood Urea Nitrogen 32 mg/dL (8-26) Creatinine 1.5 mg/dL (0.7-1.3) Estimated GFR (Cockcroft-Gault) 47.7 Glucose Level 224 mg/dL (70-99) Calcium Level 6.6 mg/dL (8.5-10.1) Phosphorus Level 1.6 mg/dL (2.6-4.7) Magnesium Level 2.3 mg/dL (1.8-2.4) Albumin 1.9 g/dL (3.4-5.0) Test 10/16/16 16:16 10/16/16 20:13 10/16/16 22:12 10/17/16 03:45 Glucose (Fingerstick) 265 mg/dL (70-99) 298 mg/dL (70-99) 238 mg/dL (70-99) Sodium Level 137 mmol/L (136-145) Potassium Level 3.2 mmol/L (3.5-5.1) Chloride Level 105 mmol/L (98-107) Carbon Dioxide Level 23 mmol/L (21-32) Anion Gap 9 (6-14) Blood Urea Nitrogen 21 mg/dL (8-26) Creatinine 1.3 mg/dL (0.7-1.3) Estimated GFR (Cockcroft-Gault) 56.3 Glucose Level 335 mg/dL (70-99) Calcium Level 6.0 mg/dL (8.5-10.1) Phosphorus Level 1.5 mg/dL (2.6-4.7) Magnesium Level 1.9 mg/dL (1.8-2.4) Albumin 1.6 g/dL (3.4-5.0) Test 10/17/16 04:14 10/17/16 05:54 10/17/16 07:19 Glucose (Fingerstick) 335 mg/dL (70-99) 207 mg/dL (70-99) 154 mg/dL (70-99) Laboratory Tests Test 10/16/16 11:07 10/16/16 16:16 10/16/16 20:13 10/16/16 22:12 Glucose (Fingerstick) 271 mg/dL (70-99) 265 mg/dL (70-99) 298 mg/dL (70-99) 238 mg/dL (70-99) Test 10/17/16 03:45 10/17/16 04:14 10/17/16 05:54 10/17/16 07:19 Sodium Level 137 mmol/L (136-145) Potassium Level 3.2 mmol/L (3.5-5.1) Chloride Level 105 mmol/L (98-107) Carbon Dioxide Level 23 mmol/L (21-32) Anion Gap 9 (6-14) Blood Urea Nitrogen 21 mg/dL (8-26) Creatinine 1.3 mg/dL (0.7-1.3) Estimated GFR (Cockcroft-Gault) 56.3 Glucose Level 335 mg/dL (70-99) Calcium Level 6.0 mg/dL (8.5-10.1) Phosphorus Level 1.5 mg/dL (2.6-4.7) Magnesium Level 1.9 mg/dL (1.8-2.4) Albumin 1.6 g/dL (3.4-5.0) Glucose (Fingerstick) 335 mg/dL (70-99) 207 mg/dL (70-99) 154 mg/dL (70-99) Assessment/Plan renal function improved d/c lynn continue IandO advance diet increase activity Problems: BREN MEDNIOLA MD Oct 17, 2016 10:49
[2016-10-17 11:00] VITALS: BP 129/78
--- NOTE | 2016-10-17 11:20 | PDOC ---
Renal-Progress Notes Subjective Notes Notes STABLE History of Present Illness Hx of present illness NO CHANGE Vitals Vitals Vital Signs Date Time Temp Pulse Resp B/P (MAP) Pulse Ox O2 Delivery O2 Flow Rate FiO2 10/17/16 11:00 98.6 76 20 129/78 (95) 95 Room Air 98.6 Weight Weight [ ] I.O. Intake and Output Intake and Output 10/17/16 07:00 Intake Total 3348 ml Output Total 2830 ml Balance 518 ml IV Total 853 ml Other 2495 ml Output Urine Total 1150 ml Drainage Total 1680 ml # Bowel Movements 4 Labs Labs Laboratory Tests Test 10/16/16 16:16 10/16/16 20:13 10/16/16 22:12 10/17/16 03:45 Glucose (Fingerstick) 265 mg/dL (70-99) 298 mg/dL (70-99) 238 mg/dL (70-99) Sodium Level 137 mmol/L (136-145) Potassium Level 3.2 mmol/L (3.5-5.1) Chloride Level 105 mmol/L (98-107) Carbon Dioxide Level 23 mmol/L (21-32) Anion Gap 9 (6-14) Blood Urea Nitrogen 21 mg/dL (8-26) Creatinine 1.3 mg/dL (0.7-1.3) Estimated GFR (Cockcroft-Gault) 56.3 Glucose Level 335 mg/dL (70-99) Calcium Level 6.0 mg/dL (8.5-10.1) Phosphorus Level 1.5 mg/dL (2.6-4.7) Magnesium Level 1.9 mg/dL (1.8-2.4) Albumin 1.6 g/dL (3.4-5.0) Test 10/17/16 04:14 10/17/16 05:54 10/17/16 07:19 10/17/16 11:06 Glucose (Fingerstick) 335 mg/dL (70-99) 207 mg/dL (70-99) 154 mg/dL (70-99) 118 mg/dL (70-99) Micro Micro Microbiology 10/12/16 Blood Culture - Preliminary, Resulted NO GROWTH AFTER 4 DAYS 10/12/16 Gram Stain - Final, Complete Review of Systems Constitutional: yes: weakness, alert, oriented Eyes: Yes: no symptom reported Gastrointestional: Yes: nausea Genitourinary: Yes: no symptom reported Musculoskeletal: Yes: muscle stiffness Endocrine: Yes: no symptom reported Physical Exam General Appearance: no apparent distress Skin: warm Respiratory: bilateral CTA Heart: S1S2, RRR Abdomen: soft, bowel sounds present Genitourinary: bladder flat Extremities: pulses present Neurology: alert, oriented Musculoskeletal: Other (left 2nd toe amputation) Assessment Assessment IMP S/P REPAIR OF UMBILICAL HERNIA MILD HYPOKALEMIA ARISTEO-RECOVERING WITH CR OF 1.3 NOW LOW CALCIUM LOW PO4 PLAN NO FURTHER DIALYSIS REPLACE K NEEDED D/C DIALYSIS CATHETER CONT IVF'S WITH KCL REPLACE CA AND PO4 MANJU PATE MD Oct 17, 2016 11:20
[2016-10-17] MEDS ORDERED: CALCIUM GLUCONATE 1,000 MG in IV NORMAL SALINE 100ML 100 ML IV ONE (11:30)
--- NOTE | 2016-10-17 13:54 | PDOC4 ---
Operative Note Operative Note Please see operative dictation in the Brief Post Op Note dated October 12, 2016 Thank you BREN MENDIOLA MD Oct 17, 2016 13:54
[2016-10-17] MEDS: POTASSIUM PHOSPHATE DIBASIC 13.6 MMOL in IV NORMAL SALINE 100ML 100 ML IV SCH ×2 (14:07→16:42)
[2016-10-17 15:08] VITALS: BP 134/79
[2016-10-17 19:00] VITALS: BP 98/64
[2016-10-17] MEDS: FAMOTIDINE 20 MG/2 ML VIAL IVP SCH (22:13)
[2016-10-17 23:27] VITALS: BP 162/90
[2016-10-18] MEDS: PIPERACILLIN/TAZOBACTAM 3.375 GM in IV NORMAL SALINE 50ML 50 ML IV SCH ×4 (00:05→17:10)
[2016-10-18] MEDS ORDERED: INSULIN ASPART 300 UNITS/3 ML INSULN.PEN SQ ONE (00:30)
[2016-10-18] MEDS: POTASSIUM CL 20MEQ D5-0.45NACL 1,000 ML IV SCH (01:51)
[2016-10-18 03:44] VITALS: BP 119/71
[2016-10-18] MEDS: HEPARIN PF for SUB-Q USE 5,000 UNIT/0.5 ML VIAL. SQ SCH ×2 (05:41→17:25)
[2016-10-18] MEDS: INSULIN DETEMIR 300 UNITS/3 ML INSULN.PEN. SQ SCH ×2 (05:43→17:27)
[2016-10-18 06:22] LABS: ALBUMIN 1.7 g/dL (3.4-5.0); CALCIUM 6.5 mg/dL (8.5-10.1); CREATININE 1.2 mg/dL (0.7-1.3); GFR 61.8; PHOSPHORUS 2.4 mg/dL (2.6-4.7); POTASSIUM 3.7 mmol/L (3.5-5.1)
[2016-10-18 07:00] VITALS: BP 117/68
[2016-10-18] MEDS: POTASSIUM CHLORIDE 10 MEQ TABLET.ER. PO SCH ×2 (08:24→17:08)
[2016-10-18] MEDS: INSULIN ASPART 300 UNITS/3 ML INSULN.PEN SQ SCH ×3 (08:28→17:26)
--- NOTE | 2016-10-18 08:32 | PDOC ---
Provider Note Provider Note renal good, K+ better- will resume po metformiin now , reduce iv fluid more- off insulin when able as was diet controlled at home LEANN BOB MD Oct 18, 2016 08:32
[2016-10-18] MEDS: metFORMIN 500 MG TABLET PO SCH ×2 (09:01→17:09)
--- NOTE | 2016-10-18 10:12 | PDOC ---
SURGICAL PROGRESS NOTE Subjective up to chair no new c/o passing "lots of gas" Vital Signs Vital Signs Date Time Temp Pulse Resp B/P (MAP) Pulse Ox O2 Delivery O2 Flow Rate FiO2 10/18/16 07:00 98.3 81 20 117/68 (84) 95 Room Air 98.3 I&O Intake and Output 10/18/16 07:00 Intake Total 500 ml Output Total 3960 ml Balance -3460 ml Other 500 ml Output Urine Total 700 ml Stool Total 700 ml Urine/Stool Mix 300 ml Drainage Total 2260 ml # Bowel Movements 4 PATIENT HAS A LUGO: No General: Alert, Oriented X3, No acute distress Abdomen: Soft, Other (wound vac on) Labs Laboratory Tests Test 10/16/16 11:07 10/16/16 16:16 10/16/16 20:13 10/16/16 22:12 Glucose (Fingerstick) 271 mg/dL (70-99) 265 mg/dL (70-99) 298 mg/dL (70-99) 238 mg/dL (70-99) Test 10/17/16 03:45 10/17/16 04:14 10/17/16 05:54 10/17/16 07:19 Sodium Level 137 mmol/L (136-145) Potassium Level 3.2 mmol/L (3.5-5.1) Chloride Level 105 mmol/L (98-107) Carbon Dioxide Level 23 mmol/L (21-32) Anion Gap 9 (6-14) Blood Urea Nitrogen 21 mg/dL (8-26) Creatinine 1.3 mg/dL (0.7-1.3) Estimated GFR (Cockcroft-Gault) 56.3 Glucose Level 335 mg/dL (70-99) Calcium Level 6.0 mg/dL (8.5-10.1) Phosphorus Level 1.5 mg/dL (2.6-4.7) Magnesium Level 1.9 mg/dL (1.8-2.4) Albumin 1.6 g/dL (3.4-5.0) Glucose (Fingerstick) 335 mg/dL (70-99) 207 mg/dL (70-99) 154 mg/dL (70-99) Test 10/17/16 11:06 10/17/16 16:19 10/17/16 20:35 10/17/16 23:56 Glucose (Fingerstick) 118 mg/dL (70-99) 383 mg/dL (70-99) 352 mg/dL (70-99) 398 mg/dL (70-99) Test 10/18/16 01:44 10/18/16 03:56 10/18/16 05:30 10/18/16 08:04 Glucose (Fingerstick) 350 mg/dL (70-99) 213 mg/dL (70-99) 157 mg/dL (70-99) Sodium Level 138 mmol/L (136-145) Potassium Level 3.7 mmol/L (3.5-5.1) Chloride Level 106 mmol/L (98-107) Carbon Dioxide Level 20 mmol/L (21-32) Anion Gap 12 (6-14) Blood Urea Nitrogen 18 mg/dL (8-26) Creatinine 1.2 mg/dL (0.7-1.3) Estimated GFR (Cockcroft-Gault) 61.8 Glucose Level 191 mg/dL (70-99) Calcium Level 6.5 mg/dL (8.5-10.1) Phosphorus Level 2.4 mg/dL (2.6-4.7) Magnesium Level 2.1 mg/dL (1.8-2.4) Albumin 1.7 g/dL (3.4-5.0) Laboratory Tests Test 10/17/16 11:06 10/17/16 16:19 10/17/16 20:35 10/17/16 23:56 Glucose (Fingerstick) 118 mg/dL (70-99) 383 mg/dL (70-99) 352 mg/dL (70-99) 398 mg/dL (70-99) Test 10/18/16 01:44 10/18/16 03:56 10/18/16 05:30 10/18/16 08:04 Glucose (Fingerstick) 350 mg/dL (70-99) 213 mg/dL (70-99) 157 mg/dL (70-99) Sodium Level 138 mmol/L (136-145) Potassium Level 3.7 mmol/L (3.5-5.1) Chloride Level 106 mmol/L (98-107) Carbon Dioxide Level 20 mmol/L (21-32) Anion Gap 12 (6-14) Blood Urea Nitrogen 18 mg/dL (8-26) Creatinine 1.2 mg/dL (0.7-1.3) Estimated GFR (Cockcroft-Gault) 61.8 Glucose Level 191 mg/dL (70-99) Calcium Level 6.5 mg/dL (8.5-10.1) Phosphorus Level 2.4 mg/dL (2.6-4.7) Magnesium Level 2.1 mg/dL (1.8-2.4) Albumin 1.7 g/dL (3.4-5.0) Assessment/Plan improved advance diet continue wound care Problems: BREN MENDIOLA MD Oct 18, 2016 10:12
[2016-10-18 11:00] VITALS: BP 127/79
--- NOTE | 2016-10-18 11:38 | PDOC ---
Renal-Progress Notes Subjective Notes Notes NONE History of Present Illness Hx of present illness BETTER Vitals Vitals Vital Signs Date Time Temp Pulse Resp B/P (MAP) Pulse Ox O2 Delivery O2 Flow Rate FiO2 10/18/16 07:00 98.3 81 20 117/68 (84) 95 Room Air 98.3 Weight Weight [ ] I.O. Intake and Output Intake and Output 10/18/16 07:00 Intake Total 500 ml Output Total 3960 ml Balance -3460 ml Other 500 ml Output Urine Total 700 ml Stool Total 700 ml Urine/Stool Mix 300 ml Drainage Total 2260 ml # Bowel Movements 4 Labs Labs Laboratory Tests Test 10/17/16 16:19 10/17/16 20:35 10/17/16 23:56 10/18/16 01:44 Glucose (Fingerstick) 383 mg/dL (70-99) 352 mg/dL (70-99) 398 mg/dL (70-99) 350 mg/dL (70-99) Test 10/18/16 03:56 10/18/16 05:30 10/18/16 08:04 Glucose (Fingerstick) 213 mg/dL (70-99) 157 mg/dL (70-99) Sodium Level 138 mmol/L (136-145) Potassium Level 3.7 mmol/L (3.5-5.1) Chloride Level 106 mmol/L (98-107) Carbon Dioxide Level 20 mmol/L (21-32) Anion Gap 12 (6-14) Blood Urea Nitrogen 18 mg/dL (8-26) Creatinine 1.2 mg/dL (0.7-1.3) Estimated GFR (Cockcroft-Gault) 61.8 Glucose Level 191 mg/dL (70-99) Calcium Level 6.5 mg/dL (8.5-10.1) Phosphorus Level 2.4 mg/dL (2.6-4.7) Magnesium Level 2.1 mg/dL (1.8-2.4) Albumin 1.7 g/dL (3.4-5.0) Micro Micro Microbiology 10/12/16 Blood Culture - Final, Complete NO GROWTH AFTER 5 DAYS 10/12/16 Gram Stain - Final, Complete Review of Systems Constitutional: yes: weakness, alert, oriented Eyes: Yes: no symptom reported Gastrointestional: Yes: nausea Genitourinary: Yes: no symptom reported Musculoskeletal: Yes: muscle stiffness Endocrine: Yes: no symptom reported Physical Exam General Appearance: no apparent distress Skin: warm Respiratory: bilateral CTA Heart: S1S2, RRR Abdomen: soft, bowel sounds present Genitourinary: bladder flat Extremities: pulses present Neurology: alert, oriented Musculoskeletal: Other (left 2nd toe amputation) Assessment Assessment IMP S/P REPAIR OF UMBILICAL HERNIA MILD HYPOKALEMIA ARISTEO-RECOVERING WITH CR OF 1.2 NOW LOW CALCIUM-BETTER, NEARLY NORMAL WHEN CORRECTED FOR LOW ALBUMIN LOW PO4 PLAN DIALYSIS CATHETER REMOVED NO FURTHER DIALYSIS REPLACE K NEEDED CONT IVF'S WITH KCL LABS IN AM MANJU PATE MD Oct 18, 2016 11:38
[2016-10-18 15:00] VITALS: BP 117/71
[2016-10-18 19:05] VITALS: BP 121/76
[2016-10-18] MEDS: FAMOTIDINE 20 MG/2 ML VIAL IVP SCH (21:00)
[2016-10-18 23:03] VITALS: BP 118/73
[2016-10-19 03:02] VITALS: BP 138/78
[2016-10-19] MEDS: POTASSIUM CL 20MEQ D5-0.45NACL 1,000 ML IV SCH (04:49)
[2016-10-19 05:52] LABS: ALBUMIN 1.9 g/dL (3.4-5.0); CALCIUM 6.3 mg/dL (8.5-10.1); CREATININE 1.5 mg/dL (0.7-1.3); GFR 47.7; PHOSPHORUS 1.9 mg/dL (2.6-4.7); POTASSIUM 4.2 mmol/L (3.5-5.1)
[2016-10-19] MEDS: PIPERACILLIN/TAZOBACTAM 3.375 GM in IV NORMAL SALINE 50ML 50 ML IV SCH ×5 (06:02→17:18)
[2016-10-19] MEDS: HEPARIN PF for SUB-Q USE 5,000 UNIT/0.5 ML VIAL. SQ SCH ×2 (06:07→17:27)
[2016-10-19] MEDS: INSULIN DETEMIR 300 UNITS/3 ML INSULN.PEN. SQ SCH ×2 (06:07→17:25)
[2016-10-19 07:00] VITALS: BP 107/70
[2016-10-19] MEDS: metFORMIN 500 MG TABLET PO SCH ×2 (08:31→17:18)
[2016-10-19] MEDS: POTASSIUM CHLORIDE 10 MEQ TABLET.ER. PO SCH (08:31)
[2016-10-19] MEDS: INSULIN ASPART 300 UNITS/3 ML INSULN.PEN SQ SCH ×3 (08:35→17:26)
--- NOTE | 2016-10-19 08:51 | PDOC ---
Provider Note Provider Note vss, K+ up now, eating- willl dc iv fluid , more levemir- will need rehab re weakness- his low albumin is from etoh cirrhosis LEANN BOB MD Oct 19, 2016 08:51
--- NOTE | 2016-10-19 10:05 | PDOC ---
ADAM WALKER [employer]SULT[employer] 10/19/16 1005: SURGICAL PROGRESS NOTE Subjective doing ok tolerating diet having stools Vital Signs Vital Signs Date Time Temp Pulse Resp B/P (MAP) Pulse Ox O2 Delivery O2 Flow Rate FiO2 10/19/16 08:30 96 Room Air 2.0 10/19/16 07:00 98.4 88 20 107/70 (82) 98.4 I&O Intake and Output 10/19/16 06:59 Intake Total 1700 ml Output Total 1915 ml Balance -215 ml Intake Oral 940 ml IV Total 480 ml Other 280 ml Output Urine Total 450 ml Drainage Total 1465 ml # Voids 6 # Bowel Movements 4 General: Alert, Oriented X3, Cooperative, No acute distress Abdomen: Soft, Other (wound vac in place, VARUN serous) Labs Laboratory Tests Test 10/17/16 11:06 10/17/16 16:19 10/17/16 20:35 10/17/16 23:56 Glucose (Fingerstick) 118 mg/dL (70-99) 383 mg/dL (70-99) 352 mg/dL (70-99) 398 mg/dL (70-99) Test 10/18/16 01:44 10/18/16 03:56 10/18/16 05:30 10/18/16 08:04 Glucose (Fingerstick) 350 mg/dL (70-99) 213 mg/dL (70-99) 157 mg/dL (70-99) Sodium Level 138 mmol/L (136-145) Potassium Level 3.7 mmol/L (3.5-5.1) Chloride Level 106 mmol/L (98-107) Carbon Dioxide Level 20 mmol/L (21-32) Anion Gap 12 (6-14) Blood Urea Nitrogen 18 mg/dL (8-26) Creatinine 1.2 mg/dL (0.7-1.3) Estimated GFR (Cockcroft-Gault) 61.8 Glucose Level 191 mg/dL (70-99) Calcium Level 6.5 mg/dL (8.5-10.1) Phosphorus Level 2.4 mg/dL (2.6-4.7) Magnesium Level 2.1 mg/dL (1.8-2.4) Albumin 1.7 g/dL (3.4-5.0) Test 10/18/16 12:05 10/18/16 16:24 10/18/16 20:28 10/19/16 01:01 Glucose (Fingerstick) 220 mg/dL (70-99) 226 mg/dL (70-99) 295 mg/dL (70-99) 236 mg/dL (70-99) Test 10/19/16 04:25 10/19/16 07:58 Sodium Level 136 mmol/L (136-145) Potassium Level 4.2 mmol/L (3.5-5.1) Chloride Level 105 mmol/L (98-107) Carbon Dioxide Level 23 mmol/L (21-32) Anion Gap 8 (6-14) Blood Urea Nitrogen 23 mg/dL (8-26) Creatinine 1.5 mg/dL (0.7-1.3) Estimated GFR (Cockcroft-Gault) 47.7 Glucose Level 203 mg/dL (70-99) Calcium Level 6.3 mg/dL (8.5-10.1) Phosphorus Level 1.9 mg/dL (2.6-4.7) Albumin 1.9 g/dL (3.4-5.0) Glucose (Fingerstick) 183 mg/dL (70-99) Laboratory Tests Test 10/18/16 12:05 10/18/16 16:24 10/18/16 20:28 10/19/16 01:01 Glucose (Fingerstick) 220 mg/dL (70-99) 226 mg/dL (70-99) 295 mg/dL (70-99) 236 mg/dL (70-99) Test 10/19/16 04:25 10/19/16 07:58 Sodium Level 136 mmol/L (136-145) Potassium Level 4.2 mmol/L (3.5-5.1) Chloride Level 105 mmol/L (98-107) Carbon Dioxide Level 23 mmol/L (21-32) Anion Gap 8 (6-14) Blood Urea Nitrogen 23 mg/dL (8-26) Creatinine 1.5 mg/dL (0.7-1.3) Estimated GFR (Cockcroft-Gault) 47.7 Glucose Level 203 mg/dL (70-99) Calcium Level 6.3 mg/dL (8.5-10.1) Phosphorus Level 1.9 mg/dL (2.6-4.7) Albumin 1.9 g/dL (3.4-5.0) Glucose (Fingerstick) 183 mg/dL (70-99) Assessment/Plan s/p SBR wound care DC planning Problems: BREN MENDIOLA MD 10/19/16 1205: SURGICAL PROGRESS NOTE Assessment/Plan pt seen and examined agree with above will d/c [facility] Problems: ADAM WALKER APRN Oct 19, 2016 10:05 BREN MENDIOLA MD Oct 19, 2016 12:05
[2016-10-19 11:00] VITALS: BP 138/90
--- NOTE | 2016-10-19 12:13 | PDOC ---
Renal-Progress Notes Subjective Notes Notes FEELS WELL History of Present Illness Hx of present illness BETTER Vitals Vitals Vital Signs Date Time Temp Pulse Resp B/P (MAP) Pulse Ox O2 Delivery O2 Flow Rate FiO2 10/19/16 11:00 98.4 91 20 138/90 (106) 97 Room Air 98.4 10/19/16 08:30 2.0 Weight Weight [ ] I.O. Intake and Output Intake and Output 10/19/16 07:00 Intake Total 1700 ml Output Total 1915 ml Balance -215 ml Intake Oral 940 ml IV Total 480 ml Other 280 ml Output Urine Total 450 ml Drainage Total 1465 ml # Voids 6 # Bowel Movements 4 Labs Labs Laboratory Tests Test 10/18/16 16:24 10/18/16 20:28 10/19/16 01:01 10/19/16 04:25 Glucose (Fingerstick) 226 mg/dL (70-99) 295 mg/dL (70-99) 236 mg/dL (70-99) Sodium Level 136 mmol/L (136-145) Potassium Level 4.2 mmol/L (3.5-5.1) Chloride Level 105 mmol/L (98-107) Carbon Dioxide Level 23 mmol/L (21-32) Anion Gap 8 (6-14) Blood Urea Nitrogen 23 mg/dL (8-26) Creatinine 1.5 mg/dL (0.7-1.3) Estimated GFR (Cockcroft-Gault) 47.7 Glucose Level 203 mg/dL (70-99) Calcium Level 6.3 mg/dL (8.5-10.1) Phosphorus Level 1.9 mg/dL (2.6-4.7) Albumin 1.9 g/dL (3.4-5.0) Test 10/19/16 07:58 10/19/16 11:49 Glucose (Fingerstick) 183 mg/dL (70-99) 182 mg/dL (70-99) Micro Micro Microbiology 10/12/16 Blood Culture - Final, Complete NO GROWTH AFTER 5 DAYS 10/12/16 Gram Stain - Final, Complete Review of Systems Constitutional: yes: weakness, alert, oriented Eyes: Yes: no symptom reported Gastrointestional: Yes: nausea Genitourinary: Yes: no symptom reported Musculoskeletal: Yes: muscle stiffness Endocrine: Yes: no symptom reported Physical Exam General Appearance: no apparent distress Skin: warm Respiratory: bilateral CTA Heart: S1S2, RRR Abdomen: soft, bowel sounds present Genitourinary: bladder flat Extremities: pulses present Neurology: alert, oriented Musculoskeletal: Other (left 2nd toe amputation) Assessment Assessment IMP S/P REPAIR OF UMBILICAL HERNIA MILD HYPOKALEMIA-RESOLVED ARISTEO-RECOVERING WITH CR OF 1.5 NOW LOW CALCIUM-BETTER, NEARLY NORMAL WHEN CORRECTED FOR LOW ALBUMIN LOW PO4-SHOULD RESOLVE WITH INCREASED INTAKE PLAN DIALYSIS CATHETER REMOVED NO FURTHER DIALYSIS REPLACE K NEEDED ENC PO LABS IN AM MANJU PTAE MD Oct 19, 2016 12:13
[2016-10-19] MEDS: oxyCODONE IR 5 MG TABLET PO PRN ×2 (14:57→17:57)
[2016-10-19 15:00] VITALS: BP 125/73
[2016-10-19 19:49] VITALS: BP 129/80
[2016-10-19] MEDS: HYDROmorphone 2 MG/ML VIAL IVP PRN (21:24)
[2016-10-19 23:07] VITALS: BP 114/70
[2016-10-20 03:12] VITALS: BP 120/69
[2016-10-20] MEDS: PIPERACILLIN/TAZOBACTAM 3.375 GM in IV NORMAL SALINE 50ML 50 ML IV SCH ×3 (05:31)
[2016-10-20] MEDS: oxyCODONE IR 5 MG TABLET PO PRN ×2 (05:32→10:01)
[2016-10-20] MEDS: HEPARIN PF for SUB-Q USE 5,000 UNIT/0.5 ML VIAL. SQ SCH (05:44)
[2016-10-20] MEDS: INSULIN DETEMIR 300 UNITS/3 ML INSULN.PEN. SQ SCH (05:44)
[2016-10-20 07:00] VITALS: BP 149/77
[2016-10-20 07:19] LABS: ALBUMIN 1.9 g/dL (3.4-5.0); CALCIUM 7.2 mg/dL (8.5-10.1); CREATININE 1.5 mg/dL (0.7-1.3); GFR 47.7; PHOSPHORUS 2.5 mg/dL (2.6-4.7)
[2016-10-20 07:25] LABS: POTASSIUM 4.6 mmol/L (3.5-5.1)
--- NOTE | 2016-10-20 08:14 | DISCH ---
DISCHARGE CONDITION ON DISCHARGE: Stable SNF STAY <30 DAYS: Yes POST DISCHARGE ORDERS ACTIVITY ORDERS: Activity as tolerated WEIGHT BEARING STATUS: As tolerated DIET AFTER DISCHARGE: ADA FOLLOW-UP PHYSICIAN FOLLOW-UP: per surgeon TREATMENT/EQUIPMENT ORDERS ADAPTIVE EQUIPMENT NEEDED: None LEANN BOB MD Oct 20, 2016 08:14
--- NOTE | 2016-10-20 08:18 | PDOC3 ---
Discharge Summary Visit Information Date of Admission: Oct 12, 2016 Date of Discharge: Oct 20, 2016 Final Diagnosis incarcerated umb. hernia with sbo, secondary cellulitis, acute renal failure Brief Hospital Course Allergies Allergies Coded Allergies Type Severity Reaction Last Updated Verified No Known Drug Allergies 11/12/13 No Vital Signs Vital Signs Date Time Temp Pulse Resp B/P (MAP) Pulse Ox O2 Delivery O2 Flow Rate FiO2 10/20/16 07:00 98.4 82 20 149/77 (101) 96 Room Air 98.4 10/19/16 17:57 2.0 Lab Results Laboratory Tests Test 10/18/16 12:05 10/18/16 16:24 10/18/16 20:28 10/19/16 01:01 Glucose (Fingerstick) 220 mg/dL (70-99) 226 mg/dL (70-99) 295 mg/dL (70-99) 236 mg/dL (70-99) Test 10/19/16 04:25 10/19/16 07:58 10/19/16 11:49 10/19/16 16:56 Sodium Level 136 mmol/L (136-145) Potassium Level 4.2 mmol/L (3.5-5.1) Chloride Level 105 mmol/L (98-107) Carbon Dioxide Level 23 mmol/L (21-32) Anion Gap 8 (6-14) Blood Urea Nitrogen 23 mg/dL (8-26) Creatinine 1.5 mg/dL (0.7-1.3) Estimated GFR (Cockcroft-Gault) 47.7 Glucose Level 203 mg/dL (70-99) Calcium Level 6.3 mg/dL (8.5-10.1) Phosphorus Level 1.9 mg/dL (2.6-4.7) Albumin 1.9 g/dL (3.4-5.0) Glucose (Fingerstick) 183 mg/dL (70-99) 182 mg/dL (70-99) 208 mg/dL (70-99) Test 10/19/16 20:43 10/20/16 06:11 10/20/16 07:05 Glucose (Fingerstick) 176 mg/dL (70-99) 132 mg/dL (70-99) Sodium Level 134 mmol/L (136-145) Potassium Level 4.6 mmol/L (3.5-5.1) Chloride Level 103 mmol/L (98-107) Carbon Dioxide Level 19 mmol/L (21-32) Anion Gap 12 (6-14) Blood Urea Nitrogen 25 mg/dL (8-26) Creatinine 1.5 mg/dL (0.7-1.3) Estimated GFR (Cockcroft-Gault) 47.7 Glucose Level 141 mg/dL (70-99) Calcium Level 7.2 mg/dL (8.5-10.1) Phosphorus Level 2.5 mg/dL (2.6-4.7) Magnesium Level 2.0 mg/dL (1.8-2.4) Albumin 1.9 g/dL (3.4-5.0) Laboratory Tests Test 10/19/16 11:49 10/19/16 16:56 10/19/16 20:43 10/20/16 06:11 Glucose (Fingerstick) 182 mg/dL (70-99) 208 mg/dL (70-99) 176 mg/dL (70-99) Sodium Level 134 mmol/L (136-145) Potassium Level 4.6 mmol/L (3.5-5.1) Chloride Level 103 mmol/L (98-107) Carbon Dioxide Level 19 mmol/L (21-32) Anion Gap 12 (6-14) Blood Urea Nitrogen 25 mg/dL (8-26) Creatinine 1.5 mg/dL (0.7-1.3) Estimated GFR (Cockcroft-Gault) 47.7 Glucose Level 141 mg/dL (70-99) Calcium Level 7.2 mg/dL (8.5-10.1) Phosphorus Level 2.5 mg/dL (2.6-4.7) Magnesium Level 2.0 mg/dL (1.8-2.4) Albumin 1.9 g/dL (3.4-5.0) Test 10/20/16 07:05 Glucose (Fingerstick) 132 mg/dL (70-99) Brief Hospital Course Mr. Burks is a 61 old [sex] who presented with [ ]incar hernia, dr torres performed sb resection and repair, iv zosyn, temp hemodialysis done x 1 and renakl fx recovered, dm txed w/ levemir- now eating and better , reasdy for rehab transfer- creat last is 1.5- rest ok- path report online Discharge Information Condition at Discharge: Improved Disposition/Orders: D/C to Another Facility Scheduled Amlodipine Besylate (Amlodipine Besylate), 1 TAB PO DAILY, (Reported) Metformin Hcl (Metformin Hcl), 1,000 MG PO DAILYWBKFT, (Reported) Spironolactone (Spironolactone), 1 TAB PO BID, (Reported) LEANN BOB MD Oct 20, 2016 08:18
[2016-10-20] MEDS: metFORMIN 500 MG TABLET PO SCH (08:54)
--- NOTE | 2016-10-20 10:38 | PDOC ---
SURGICAL PROGRESS NOTE Subjective tolerating diet pain managed Vital Signs Vital Signs Date Time Temp Pulse Resp B/P (MAP) Pulse Ox O2 Delivery O2 Flow Rate FiO2 10/20/16 10:01 16 Room Air 10/20/16 07:00 98.4 82 149/77 (101) 96 98.4 10/19/16 17:57 2.0 I&O Intake and Output 10/20/16 07:00 Intake Total 201 ml Output Total 1510 ml Balance -1309 ml IV Total 201 ml Output Urine Total 100 ml Drainage Total 1410 ml # Bowel Movements 2 General: Alert, Oriented X3, Cooperative, No acute distress Abdomen: Soft, Other (wound vac in place, kleber serous) Labs Laboratory Tests Test 10/18/16 12:05 10/18/16 16:24 10/18/16 20:28 10/19/16 01:01 Glucose (Fingerstick) 220 mg/dL (70-99) 226 mg/dL (70-99) 295 mg/dL (70-99) 236 mg/dL (70-99) Test 10/19/16 04:25 10/19/16 07:58 10/19/16 11:49 10/19/16 16:56 Sodium Level 136 mmol/L (136-145) Potassium Level 4.2 mmol/L (3.5-5.1) Chloride Level 105 mmol/L (98-107) Carbon Dioxide Level 23 mmol/L (21-32) Anion Gap 8 (6-14) Blood Urea Nitrogen 23 mg/dL (8-26) Creatinine 1.5 mg/dL (0.7-1.3) Estimated GFR (Cockcroft-Gault) 47.7 Glucose Level 203 mg/dL (70-99) Calcium Level 6.3 mg/dL (8.5-10.1) Phosphorus Level 1.9 mg/dL (2.6-4.7) Albumin 1.9 g/dL (3.4-5.0) Glucose (Fingerstick) 183 mg/dL (70-99) 182 mg/dL (70-99) 208 mg/dL (70-99) Test 10/19/16 20:43 10/20/16 06:11 10/20/16 07:05 Glucose (Fingerstick) 176 mg/dL (70-99) 132 mg/dL (70-99) Sodium Level 134 mmol/L (136-145) Potassium Level 4.6 mmol/L (3.5-5.1) Chloride Level 103 mmol/L (98-107) Carbon Dioxide Level 19 mmol/L (21-32) Anion Gap 12 (6-14) Blood Urea Nitrogen 25 mg/dL (8-26) Creatinine 1.5 mg/dL (0.7-1.3) Estimated GFR (Cockcroft-Gault) 47.7 Glucose Level 141 mg/dL (70-99) Calcium Level 7.2 mg/dL (8.5-10.1) Phosphorus Level 2.5 mg/dL (2.6-4.7) Magnesium Level 2.0 mg/dL (1.8-2.4) Albumin 1.9 g/dL (3.4-5.0) Laboratory Tests Test 10/19/16 11:49 10/19/16 16:56 10/19/16 20:43 10/20/16 06:11 Glucose (Fingerstick) 182 mg/dL (70-99) 208 mg/dL (70-99) 176 mg/dL (70-99) Sodium Level 134 mmol/L (136-145) Potassium Level 4.6 mmol/L (3.5-5.1) Chloride Level 103 mmol/L (98-107) Carbon Dioxide Level 19 mmol/L (21-32) Anion Gap 12 (6-14) Blood Urea Nitrogen 25 mg/dL (8-26) Creatinine 1.5 mg/dL (0.7-1.3) Estimated GFR (Cockcroft-Gault) 47.7 Glucose Level 141 mg/dL (70-99) Calcium Level 7.2 mg/dL (8.5-10.1) Phosphorus Level 2.5 mg/dL (2.6-4.7) Magnesium Level 2.0 mg/dL (1.8-2.4) Albumin 1.9 g/dL (3.4-5.0) Test 10/20/16 07:05 Glucose (Fingerstick) 132 mg/dL (70-99) Assessment/Plan to PP today dc with vac and drain FU in clinic next week with Dr Back Problems: ADAM WALKER APRN Oct 20, 2016 10:37
--- NOTE | 2016-10-20 12:06 | PDOC ---
Renal-Progress Notes Subjective Notes Notes NONE History of Present Illness Hx of present illness STABLE Vitals Vitals Vital Signs Date Time Temp Pulse Resp B/P (MAP) Pulse Ox O2 Delivery O2 Flow Rate FiO2 10/20/16 10:01 16 Room Air 10/20/16 07:00 98.4 82 149/77 (101) 96 98.4 10/19/16 17:57 2.0 Weight Weight [ ] I.O. Intake and Output Intake and Output 10/20/16 07:00 Intake Total 201 ml Output Total 1510 ml Balance -1309 ml IV Total 201 ml Output Urine Total 100 ml Drainage Total 1410 ml # Bowel Movements 2 Labs Labs Laboratory Tests Test 10/19/16 16:56 10/19/16 20:43 10/20/16 06:11 10/20/16 07:05 Glucose (Fingerstick) 208 mg/dL (70-99) 176 mg/dL (70-99) 132 mg/dL (70-99) Sodium Level 134 mmol/L (136-145) Potassium Level 4.6 mmol/L (3.5-5.1) Chloride Level 103 mmol/L (98-107) Carbon Dioxide Level 19 mmol/L (21-32) Anion Gap 12 (6-14) Blood Urea Nitrogen 25 mg/dL (8-26) Creatinine 1.5 mg/dL (0.7-1.3) Estimated GFR (Cockcroft-Gault) 47.7 Glucose Level 141 mg/dL (70-99) Calcium Level 7.2 mg/dL (8.5-10.1) Phosphorus Level 2.5 mg/dL (2.6-4.7) Magnesium Level 2.0 mg/dL (1.8-2.4) Albumin 1.9 g/dL (3.4-5.0) Micro Micro Microbiology 10/12/16 Blood Culture - Final, Complete NO GROWTH AFTER 5 DAYS 10/12/16 Gram Stain - Final, Complete Review of Systems Constitutional: yes: weakness, alert, oriented Eyes: Yes: no symptom reported Gastrointestional: Yes: nausea Genitourinary: Yes: no symptom reported Musculoskeletal: Yes: muscle stiffness Endocrine: Yes: no symptom reported Physical Exam General Appearance: no apparent distress Skin: warm Respiratory: bilateral CTA Heart: S1S2, RRR Abdomen: soft, bowel sounds present Genitourinary: bladder flat Extremities: pulses present Neurology: alert, oriented Musculoskeletal: Other (left 2nd toe amputation) Assessment Assessment IMP S/P REPAIR OF UMBILICAL HERNIA MILD HYPOKALEMIA-RESOLVED ARISTEO-RECOVERING WITH CR OF 1.5 NOW-MAY HAVE MILD CKD LOW CALCIUM-CORRECT CA IS NEAR WNL PLAN DIALYSIS CATHETER REMOVED NO FURTHER DIALYSIS WILL SING OFF PLEASE CALL IF NEEDED MANJU PATE MD Oct 20, 2016 12:06
[2016-10-20] MEDS ORDERED: INSULIN DETEMIR 300 UNITS/3 ML INSULN.PEN. SQ SCH (18:00)
== END 2016-10-20 12:45 | DRG 329 ==
LOC: 4 NORTH 10:45
PROVIDERS: ADMIT Family Medicine; ATTEND Family Medicine
PROC: 0DT80ZZ Resection of Small Intestine, Open Approach (ICD-10-PCS; 2016-10-12)
PROC: 0WQF0ZZ Repair Abdominal Wall, Open Approach (ICD-10-PCS; principal; 2016-10-12 14:00)
PROC: 02H633Z Insertion of Infusion Device into Right Atrium, Percutaneous Approach (ICD-10-PCS; 2016-10-13)
PROC: B2141ZZ Fluoroscopy of Right Heart using Low Osmolar Contrast (ICD-10-PCS; 2016-10-13)
PROC: B244ZZZ Ultrasonography of Right Heart (ICD-10-PCS; 2016-10-13)
DX: K42.1 Umbilical hernia with gangrene (principal); N17.0 Acute kidney failure with tubular necrosis; R65.11 Systemic inflammatory response syndrome (SIRS) of non-infectious origin with acute organ dysfunction; E87.1 Hypo-osmolality and hyponatremia; L03.90 Cellulitis, unspecified; E78.5 Hyperlipidemia, unspecified; E11.9 Type 2 diabetes mellitus without complications; E87.5 Hyperkalemia; E87.6 Hypokalemia; E11.42 Type 2 diabetes mellitus with diabetic polyneuropathy; I10 Essential (primary) hypertension; K74.60 Unspecified cirrhosis of liver; Z82.49 Family history of ischemic heart disease and other diseases of the circulatory system; Z89.422 Acquired absence of other left toe(s)
CPT/HCPCS: 36415; 36556; 74000; 74176; 76937; 77001; 80048; 80053; 80069; 82533; 82962; 83605; 83735; 84100; 85007; 85014; 85018; 85027; 85610; 86850; 86900; 86901; 87040; 87071; 87075; 87205; 88302; 88307; 90732; A4215; C1892; J0330; J0610; J1100; J1170; J1650; J1815; J1885; J2001; J2270; J2370; J2405; J2543; J2704; J2710; J3010; J3370; J3480; J3490; J7030; J7042; J7050; J7120; S0028; 97116

== ENCOUNTER 2016-10-21 15:24 | Inpatient (IN) | payer MEDICARE ==
[2016-10-21] VITALS (8 sets, daily range): BP systolic 106–120; BP diastolic 55–81
[~2016-10-21] VITALS: Ht 170.2 cm; Wt 68.3 kg
[~2016-10-21 15:24] MED LIST changes: +SPIR50TA2 PO
[2016-10-21 15:44] LABS: BASO # 0.1 x10^3/uL (0.0-0.2); BASO % 0 % (0-3); EOS % 2 % (0-3); HEMATOCRIT 21.3 % (39.0-53.0); HEMOGLOBIN 7.3 g/dL (13.0-17.5); LYMPH # 1.9 x10^3/uL (1.0-4.8); LYMPH % 11 % (24-48); MEAN CORPUSCULAR HEMOGLOBIN 29 pg (25-35); MEAN CORPUSCULAR HGB CONC 34 g/dL (31-37); MEAN CORPUSCULAR VOLUME 85 fL (79-100); MONO % 8 % (0-9); NEUT % 80 % (31-73); PLATELET COUNT 352 x10^3/uL (140-400); RED BLOOD COUNT 2.51 x10^6/uL (4.30-5.70); RED CELL DISTRIBUTION WIDTH 15.2 % (11.5-14.5); WHITE BLOOD COUNT 18.3 x10^3/uL (4.0-11.0)
[2016-10-21 15:50] LABS: CALCIUM 7.2 mg/dL (8.5-10.1); CREATININE 2.2 mg/dL (0.7-1.3); GFR 30.7; POTASSIUM 5.6 mmol/L (3.5-5.1)
[2016-10-21 15:52] LABS: PROTHROMBIN TIME PATIENT 12.8 SEC (11.7-14.0)
[2016-10-21 15:56] LABS: ALBUMIN 1.7 g/dL (3.4-5.0); ALBUMIN/GLOBULIN RATIO 0.5 (1.0-1.7); TOTAL BILIRUBIN 0.2 mg/dL (0.2-1.0); TOTAL PROTEIN 5.3 g/dL (6.4-8.2)
[2016-10-21 16:10] LABS: % EOS 2 % (0-5)
[2016-10-21 16:13] LABS: PLT ESTIMATE ADEQUATE (ADEQUATE); POLYCHROMASIA SLIGHT; TOXIC GRANULATION MOD
--- NOTE | 2016-10-21 16:27 | PHYS DOC ---
Past Medical History Past Medical History: Diabetes-Type II, High Cholesterol, Hypertension Additional Past Medical Histor: CIRRHOSIS OF LIVER, UMBILICAL HERNIA W/ OBSTRUCTION Additional Past Surgical Histo: INCARCERATED HERNIA SX, LEFT 2ND TOE AMPUTATED Alcohol Use: None Drug Use: None Adult General Chief Complaint Chief Complaint: RECTAL BLEED HPI HPI Patient is a 61 year old male brought to the ED by EMS from [facility] with a complaint of several bloody stools today. The patient just had a fairly lengthy hospitalization after surgery for umbilical hernia with some complications. He was doing well yesterday and sent to [facility] with a wound VAC on his abdominal wound and also has a abdominal drain in place. Patient states he was feeling well and doing well yesterday when he was transferred to [facility]. This morning, he reportedly has had several fairly large amount stools that appear to be straight blood. No vomiting. Patient denies previous GI bleed. He states "I don't know where this came from" . Patient is not on a blood thinner. He does not have a bleeding problem although he reportedly does have advanced cirrhosis. PCP Dr. William Bob Surgeon Dr. Back Review of Systems Review of Systems Constitutional: Denies fever or chills [] Eyes: Denies change in visual acuity, redness, or eye pain [] HENT: Denies nasal congestion or sore throat [] Respiratory: Denies cough or shortness of breath [] Cardiovascular: Denies chest pain GI: States his abdomen hurts the same amount that it has been hurting ever since his surgery, no worse : Denies dysuria or hematuria [] Musculoskeletal: Denies back pain or joint pain [] Integument: Denies rash or skin lesions [] Neurologic: Denies headache, focal weakness or sensory changes [] Allergies Allergies Allergies Coded Allergies Type Severity Reaction Last Updated Verified No Known Drug Allergies 11/12/13 No Physical Exam Physical Exam Constitutional: Well developed, well nourished, no acute distress, non-toxic appearance. Alert, mentating normally, warm and dry. HENT: Normocephalic, atraumatic, bilateral external ears normal, nose normal. [ ] Eyes: conjunctiva normal, no discharge. [] Neck: Normal range of motion, no stridor. [] Cardiovascular:Heart rate regular rhythm, no murmur [] Lungs & Thorax: Bilateral breath sounds clear to auscultation [] Abdomen: Bowel sounds normal, soft, nondistended, no masses, no pulsatile masses. Mild generalized tenderness to palpation, nonlocalized, no rebound or guarding. A wound VAC sponge dressing is in place over a midline incision, which was not disturbed. Surrounding tissue appears healthy. There is a VARUN drain present in the right lower quadrant which is draining clear fluid. Skin: Warm, dry, no erythema, no rash. [] Extremities: No tenderness, no cyanosis, no clubbing, ROM intact, no edema. [] Neurologic: Alert and oriented X 3, normal motor function, normal sensory function, no focal deficits noted. [] Current Patient Data Vital Signs Vital Signs Date Time Temp Pulse Resp B/P (MAP) Pulse Ox O2 Delivery O2 Flow Rate FiO2 10/21/16 16:30 96 20 106/61 (76) 95 Room Air 10/21/16 15:31 98.4 98.4 Lab Values Laboratory Tests Test 10/21/16 15:30 10/21/16 16:20 White Blood Count 18.3 x10^3/uL (4.0-11.0) #H Red Blood Count 2.51 x10^6/uL (4.30-5.70) L Hemoglobin 7.3 g/dL (13.0-17.5) L Hematocrit 21.3 % (39.0-53.0) L Mean Corpuscular Volume 85 fL (79-100) Mean Corpuscular Hemoglobin 29 pg (25-35) Mean Corpuscular Hemoglobin Concent 34 g/dL (31-37) Red Cell Distribution Width 15.2 % (11.5-14.5) H Platelet Count 352 x10^3/uL (140-400) Neutrophils (%) (Auto) 80 % (31-73) H Lymphocytes (%) (Auto) 11 % (24-48) L Monocytes (%) (Auto) 8 % (0-9) Eosinophils (%) (Auto) 2 % (0-3) Basophils (%) (Auto) 0 % (0-3) Neutrophils # (Auto) 14.6 x10^3uL (1.8-7.7) H Lymphocytes # (Auto) 1.9 x10^3/uL (1.0-4.8) Monocytes # (Auto) 1.5 x10^3/uL (0.0-1.1) H Eosinophils # (Auto) 0.3 x10^3/uL (0.0-0.7) Basophils # (Auto) 0.1 x10^3/uL (0.0-0.2) Segmented Neutrophils % 84 % (35-66) H Band Neutrophils % 3 % (0-9) Lymphocytes % 8 % (24-48) L Monocytes % 3 % (0-10) Eosinophils % 2 % (0-5) Toxic Granulation Mod Platelet Estimate Adequate (ADEQUATE) Polychromasia Slight Prothrombin Time 12.8 SEC (11.7-14.0) Prothrombin Time INR 1.0 (0.8-1.1) PTT 35 SEC (24-38) Sodium Level 132 mmol/L (136-145) L Potassium Level 5.6 mmol/L (3.5-5.1) H Chloride Level 101 mmol/L (98-107) Carbon Dioxide Level 20 mmol/L (21-32) L Anion Gap 11 (6-14) Blood Urea Nitrogen 35 mg/dL (8-26) H Creatinine 2.2 mg/dL (0.7-1.3) H Estimated GFR (Cockcroft-Gault) 30.7 BUN/Creatinine Ratio 16 (6-20) Glucose Level 325 mg/dL (70-99) H Calcium Level 7.2 mg/dL (8.5-10.1) L Total Bilirubin 0.2 mg/dL (0.2-1.0) Aspartate Amino Transferase (AST) 29 U/L (15-37) Alanine Aminotransferase (ALT) 20 U/L (16-63) Alkaline Phosphatase 339 U/L (46-116) H Total Protein 5.3 g/dL (6.4-8.2) L Albumin 1.7 g/dL (3.4-5.0) L Albumin/Globulin Ratio 0.5 (1.0-1.7) L Stool Occult Blood Positive (NEG) Laboratory Tests 10/21/16 15:30 Laboratory Tests 10/21/16 15:30 EKG EKG Twelve-lead EKG read by me. Sinus rhythm. Heart rate 89. There are no acute ST or T wave changes indicative of ischemia or infarction. No STEMI. 1532 [] Radiology/Procedures Radiology/Procedures [] Course & Med Decision Making Course & Med Decision Making Pertinent Labs and Imaging studies reviewed. (See chart for details) 61-year-old male who just left the hospital yesterday to be admitted to [facility] after an abdominal surgery, presents today with blood per rectum, lower GI bleed. There is no indication that this presentation is in any way related to his surgery. His wound and his VARUN drain both appear healthy. The patient has stable vital signs, alert, mentating normally. During his ED stay, he did have one episode of a fairly large amount of dark red clotted blood per rectum. I ordered 2 units packed red blood cells. I consented the patient for blood transfusion, questions were answered. Patient's hemoglobin has dropped about 3 g. INR is 1.0. Other labs are stable. I discussed the case with Dr. William Bob, who will admit the patient. I wrote bridge orders. I discussed the case with Dr. De Oliveira, on-call for GI. He will see the patient. We reviewed the plan and he agrees with the management plan of transfusion 2 units and monitor the patient carefully. Critical care time 35 minutes including evaluation and treatment of GI bleed, ordering blood transfusion and transfusion consent, discussion of the case with GI residential sales consultant and admitting physician, documentation, writing orders. [] Dragon Disclaimer Dragon Disclaimer This electronic medical record was generated, in whole or in part, using a voice recognition dictation system. Departure Departure Impression: Primary Impression: GI bleed Additional Impression: Anemia Disposition: ADMITTED INPATIENT Admitting Physician: William Bob Condition: STABLE Referrals: WILLIAM BOB MD (PCP) Scripts No Active Prescriptions or Reported Meds Problem Qualifiers FRANCIA CAMARENA MD Oct 21, 2016 16:27
[2016-10-21 19:49] LABS: NEG OBC FOB NEG; POS OBC FOB POS
--- NOTE | 2016-10-21 21:24 | PDOC2 ---
CONSULT Date of Consult Date of Consult DATE: 10/21/16 TIME: 21:20 History of Present Illness Reason for Visit: (dictation line down) cc: bloody stools hpi 61 male presents and relates to me passing several dark bloody stools today. associated with some crampy abd pain. mild nausea. no hematemesis. has not had bloody stools in the past. ROS const: no f/c opth: no sudden loss of vision, double vision ent: + loss of hearing, no ringing in ears cv: no cp, heart palp resp no cough, sob gu no dysuria, hematuria musculoskel: no new joint pain or swelling heme no easy bleeding or bruising. psych no depression and anxiety neuro no headaches or seizures gi see hpi PE 98.4 74 18 112/71 96% on room air alert, no distress eyes pupils round, reactive. no icterus ent normocephalic, mucous membranes moist neck supple, no lymphadenopathy, nontender cv: 2+ bilateral femoral pulses. no pedal edema resp nonlabored, chest wall nontender to palp gi abd soft nd nt. kleber serous. wound vac in place on incision. no visible blood neuro: alert/oriented x 3. no resting tremor psych cooperative with approp mood and affect a/p gi bleed. await gi eval. no immediate surgical plans. agree with checking hgb and avoiding anticoagulation. cirrhosis recent incarcerated hernia repair with sbr Past Medical History Cardiovascular: HTN, Hyperlipidemia Pulmonary: No pertinent hx CENTRAL NERVOUS SYSTEM: Periperal neuropathy GI: Other Hepatobiliary: Cirrhosis Musculoskeletal: Other Endocrine: Diabetes Past Surgical History Past Surgical History: Other (see above), No pertinent history Family History Family History: Hypertension Social History ALCOHOL: social Lives: with Family Current Problem List Problem List Problems Medical Problems: (1) Anemia Status: Acute (2) GI bleed Status: Acute Current Medications Current Medications Current Medications Dextrose/Lactated Ringer's 1,000 ml @ 75 mls/hr [id number] IV ; Start 10/21/16 at 19:15 Active Scripts Active No Active Prescriptions or Reported Medications Allergies Allergies: Coded Allergies: No Known Drug Allergies (Unverified , 11/12/13) Vitals VITALS Vital Signs Date Time Temp Pulse Resp B/P (MAP) Pulse Ox O2 Delivery O2 Flow Rate FiO2 10/21/16 20:52 98.4 74 18 112/71 98.4 7/15/17 19:40 96 Room Air Labs Labs Laboratory Tests Test 10/21/16 15:30 10/21/16 16:20 White Blood Count 18.3 x10^3/uL (4.0-11.0) Red Blood Count 2.51 x10^6/uL (4.30-5.70) Hemoglobin 7.3 g/dL (13.0-17.5) Hematocrit 21.3 % (39.0-53.0) Mean Corpuscular Volume 85 fL (79-100) Mean Corpuscular Hemoglobin 29 pg (25-35) Mean Corpuscular Hemoglobin Concent 34 g/dL (31-37) Red Cell Distribution Width 15.2 % (11.5-14.5) Platelet Count 352 x10^3/uL (140-400) Neutrophils (%) (Auto) 80 % (31-73) Lymphocytes (%) (Auto) 11 % (24-48) Monocytes (%) (Auto) 8 % (0-9) Eosinophils (%) (Auto) 2 % (0-3) Basophils (%) (Auto) 0 % (0-3) Neutrophils # (Auto) 14.6 x10^3uL (1.8-7.7) Lymphocytes # (Auto) 1.9 x10^3/uL (1.0-4.8) Monocytes # (Auto) 1.5 x10^3/uL (0.0-1.1) Eosinophils # (Auto) 0.3 x10^3/uL (0.0-0.7) Basophils # (Auto) 0.1 x10^3/uL (0.0-0.2) Segmented Neutrophils % 84 % (35-66) Band Neutrophils % 3 % (0-9) Lymphocytes % 8 % (24-48) Monocytes % 3 % (0-10) Eosinophils % 2 % (0-5) Toxic Granulation Mod Platelet Estimate Adequate (ADEQUATE) Polychromasia Slight Prothrombin Time 12.8 SEC (11.7-14.0) Prothromb Time International Ratio 1.0 (0.8-1.1) Activated Partial Thromboplast Time 35 SEC (24-38) Sodium Level 132 mmol/L (136-145) Potassium Level 5.6 mmol/L (3.5-5.1) Chloride Level 101 mmol/L (98-107) Carbon Dioxide Level 20 mmol/L (21-32) Anion Gap 11 (6-14) Blood Urea Nitrogen 35 mg/dL (8-26) Creatinine 2.2 mg/dL (0.7-1.3) Estimated GFR (Cockcroft-Gault) 30.7 BUN/Creatinine Ratio 16 (6-20) Glucose Level 325 mg/dL (70-99) Calcium Level 7.2 mg/dL (8.5-10.1) Total Bilirubin 0.2 mg/dL (0.2-1.0) Aspartate Amino Transf (AST/SGOT) 29 U/L (15-37) Alanine Aminotransferase (ALT/SGPT) 20 U/L (16-63) Alkaline Phosphatase 339 U/L (46-116) Total Protein 5.3 g/dL (6.4-8.2) Albumin 1.7 g/dL (3.4-5.0) Albumin/Globulin Ratio 0.5 (1.0-1.7) Stool Occult Blood Positive (NEG) Laboratory Tests Test 10/21/16 15:30 10/21/16 16:20 White Blood Count 18.3 x10^3/uL (4.0-11.0) Red Blood Count 2.51 x10^6/uL (4.30-5.70) Hemoglobin 7.3 g/dL (13.0-17.5) Hematocrit 21.3 % (39.0-53.0) Mean Corpuscular Volume 85 fL (79-100) Mean Corpuscular Hemoglobin 29 pg (25-35) Mean Corpuscular Hemoglobin Concent 34 g/dL (31-37) Red Cell Distribution Width 15.2 % (11.5-14.5) Platelet Count 352 x10^3/uL (140-400) Neutrophils (%) (Auto) 80 % (31-73) Lymphocytes (%) (Auto) 11 % (24-48) Monocytes (%) (Auto) 8 % (0-9) Eosinophils (%) (Auto) 2 % (0-3) Basophils (%) (Auto) 0 % (0-3) Neutrophils # (Auto) 14.6 x10^3uL (1.8-7.7) Lymphocytes # (Auto) 1.9 x10^3/uL (1.0-4.8) Monocytes # (Auto) 1.5 x10^3/uL (0.0-1.1) Eosinophils # (Auto) 0.3 x10^3/uL (0.0-0.7) Basophils # (Auto) 0.1 x10^3/uL (0.0-0.2) Segmented Neutrophils % 84 % (35-66) Band Neutrophils % 3 % (0-9) Lymphocytes % 8 % (24-48) Monocytes % 3 % (0-10) Eosinophils % 2 % (0-5) Toxic Granulation Mod Platelet Estimate Adequate (ADEQUATE) Polychromasia Slight Prothrombin Time 12.8 SEC (11.7-14.0) Prothromb Time International Ratio 1.0 (0.8-1.1) Activated Partial Thromboplast Time 35 SEC (24-38) Sodium Level 132 mmol/L (136-145) Potassium Level 5.6 mmol/L (3.5-5.1) Chloride Level 101 mmol/L (98-107) Carbon Dioxide Level 20 mmol/L (21-32) Anion Gap 11 (6-14) Blood Urea Nitrogen 35 mg/dL (8-26) Creatinine 2.2 mg/dL (0.7-1.3) Estimated GFR (Cockcroft-Gault) 30.7 BUN/Creatinine Ratio 16 (6-20) Glucose Level 325 mg/dL (70-99) Calcium Level 7.2 mg/dL (8.5-10.1) Total Bilirubin 0.2 mg/dL (0.2-1.0) Aspartate Amino Transf (AST/SGOT) 29 U/L (15-37) Alanine Aminotransferase (ALT/SGPT) 20 U/L (16-63) Alkaline Phosphatase 339 U/L (46-116) Total Protein 5.3 g/dL (6.4-8.2) Albumin 1.7 g/dL (3.4-5.0) Albumin/Globulin Ratio 0.5 (1.0-1.7) Stool Occult Blood Positive (NEG) TANYA SERRA MD Oct 21, 2016 21:24
[2016-10-21] MEDS ORDERED: PANTOPRAZOLE 40 MG TABLET.DR. PO ONE (22:15)
[2016-10-21] MEDS: DICYCLOMINE HCL 10 MG CAPSULE PO SCH (22:35)
[2016-10-21] MEDS: IV DEXTROSE 5%-LACT RINGERS 1,000 ML IV SCH (22:35)
[2016-10-21] MEDS ORDERED: ONDANSETRON PF 4 MG/2 ML VIAL. IV PRN (22:45)
[2016-10-21] MEDS ORDERED: POLYETHYLENE GLYCOL 3350 238 GM POWDER PO ONE (22:45)
[2016-10-22] VITALS (8 sets, daily range): BP systolic 112–145; BP diastolic 70–87
--- NOTE | 2016-10-22 04:29 | ACF ---
Admission Forms Criteria GASTROINTESTINAL BLEEDING Clinical Indications for Inpatient Care (Place 'X' for any and all applicable criteria): Ongoing inpatient care may be indicated for gastrointestinal bleeding with ANY ONE of the following (4)(20)(21)(22)(23)(24): [ X]I. Active bleeding (eg, fresh voluminous blood in emesis or nasogastric aspirate, or per rectum) [ ]II. Hemodynamic instability [ ]III. Anticoagulation therapy or coagulopathy ((eg, advanced liver disease, irreversible anticoagulation) [ ]IV. Ischemic colitis (22) [ ]V. Endoscopy showing arterial bleeding, adherent clot, nonbleeding visible vessel, varices, flat red spots, ulcer size greater than 2 cm, or portal hypertensive gastropathy [ ]. High-risk low platelet count [ ]VII. Anemia requiring inpatient care as indicated by ANY ONE of the following a)[ ] Cognitive impairment b)[ ] Syncope c)[ ] Heart failure d)[ ] Chest pain e)[ ] Dyspnea f)[ ] Other findings suggesting inadequate perfusion (eg, peripheral or myocardial ischemia, end organ dysfunction) [ ]VIII. High-risk low platelet count [ ]IX. Suspected variceal cause of bleeding as indicated by ANY ONE of the following(27)(28): a)[ ] Known varices b)[ ] Hepatomegaly or splenomegaly c)[ ] Ascites d)[ ] Jaundice or scleral icterus e)[ ] History of liver disease (eg, cirrhosis) f)[ ] Physical findings of portal hypertension (eg, caput medusa) g)[ ] Comorbid disorder indicating risk for portal vein thrombosis (eg , abdominal surgery, sepsis, shock, exchange transfusion, prior umbilical vein catheterization) Extended stay may be needed until ALL of the following are present(20)(38)(47): [ ]a) Hemodynamic stability [ ]b) No evidence of active bleeding (eg, stable Hematocrit) [ ]c) Platelet count, prothrombin time, and partial thromboplastin time acceptable for next level of care [ ]d) Surgical or other acute intervention not needed [ ]e) Oral hydration and diet tolerated The original [employer] content created by [employer] has been revised. The portions of the content which have been revised are identified through the use of italic text or in bold, and [employer] has neither reviewed nor approved the modified material. All other unmodified content is copyright [facility]. Please see references footnoted in the original [facility] edition 2016 Admission Criteria Met?: Yes NAMRATA GIBSON Oct 22, 2016 04:29
[2016-10-22] MEDS: DICYCLOMINE HCL 10 MG CAPSULE PO SCH ×3 (06:11→20:40)
[2016-10-22] MEDS: PANTOPRAZOLE 40 MG TABLET.DR. PO SCH ×2 (07:30→20:40)
[2016-10-22 08:04] LABS: BASO % 0 % (0-3); EOS % 2 % (0-3); HEMATOCRIT 29.4 % (39.0-53.0); HEMOGLOBIN 10.1 g/dL (13.0-17.5); LYMPH # 1.5 x10^3/uL (1.0-4.8); LYMPH % 9 % (24-48); MEAN CORPUSCULAR HEMOGLOBIN 30 pg (25-35); MEAN CORPUSCULAR HGB CONC 34 g/dL (31-37); MEAN CORPUSCULAR VOLUME 87 fL (79-100); MONO % 8 % (0-9); NEUT % 81 % (31-73); PLATELET COUNT 345 x10^3/uL (140-400); RED BLOOD COUNT 3.39 x10^6/uL (4.30-5.70); RED CELL DISTRIBUTION WIDTH 15.7 % (11.5-14.5); WHITE BLOOD COUNT 15.8 x10^3/uL (4.0-11.0)
[2016-10-22 08:08] LABS: CALCIUM 7.8 mg/dL (8.5-10.1); CREATININE 1.8 mg/dL (0.7-1.3); GFR 38.7; POTASSIUM 5.9 mmol/L (3.5-5.1)
[2016-10-22] MEDS: IV DEXTROSE 5%-LACT RINGERS 1,000 ML IV SCH ×2 (08:35→20:41)
--- NOTE | 2016-10-22 11:12 | EKG ---
[facility] [address] [place] [address] Test Date: 2016-10-21 Test Time: 15:32:21 Pat Name: JOHN KEITH Department: Room: Gender: M Sales Operations Associate: : 1955 Requested By: FRANCIA CAMARENA Order Number: [id number] Reading MD: Measurements Intervals [place] Rate: 89 P: 0 [place]: 176 QRS: 7 QRSD: 82 T: 6 QT: 362 QTc: 441 Interpretive Statements SINUS RHYTHM NORMAL ECG RI6.01 No previous ECG available for comparison
[2016-10-22] MEDS ORDERED: SODIUM POLYSTYRENE SULFONATE 15 GM/60 ML ORAL.SUSP. PR ONE (11:30)
--- NOTE | 2016-10-22 11:38 | PDOC1 ---
History and Physical Date of Admission Date of Admission DATE: 10/21/16 TIME: 16:30 Identification/Chief Complaint Chief Complaint admitted with dark bloody stools and cramping abdominal pain. Hb 7.3 on admit and is 10.1 this am after 2 units prbc's. hemodynamically stable. no blood last stool with bowel prep per nursing. recent incarcerated abdominal hernia repair with wound vac and kleber drain. history of cirrhosis. abdomen is soft, heart regular, and lungs clear. Problems: Past Medical History Cardiovascular: HTN, Hyperlipidemia Pulmonary: No pertinent hx CENTRAL NERVOUS SYSTEM: Periperal neuropathy GI: Other Hepatobiliary: Cirrhosis Musculoskeletal: Other Endocrine: Diabetes Past Surgical History Past Surgical History: Other (see above), No pertinent history Family History Family History: Hypertension Social History ALCOHOL: social Current Problem List Problem List Problems Medical Problems: (1) Anemia Status: Acute (2) GI bleed Status: Acute Problems: Current Medications Current Medications Current Medications Dextrose/Lactated Ringer's 1,000 ml @ 75 mls/hr [id number] IV Last administered on 10/21/16 22:35; Start 10/21/16 at 19:15 Polyethylene Glycol (miraLAX Powder BULK BOTTLE) 238 gm 1X ONCE PO Last administered on 10/22/16 01:10; Start 10/21/16 at 22:45; Stop 10/21/16 at 22:46 ; Status DC Pantoprazole Sodium (Protonix) 40 mg 1X ONCE PO Last administered on 22:35; Start 10/21/16 at 22:15; Stop 10/21/16 at 22:16; Status DC Pantoprazole Sodium (Protonix) 40 mg DAILYAC PO ; Start 10/22/16 at 07:30 Dicyclomine HCl (Bentyl) 20 mg Q8HRS PO Last administered on 10/21/16 22:35; Start 10/21/16 at 22:15 Ondansetron HCl (Zofran) 4 mg PRN Q6HRS PRN IV NAUSEA/VOMITING Last administered on 10/21/16 22:43; Start 10/21/16 at 22:45 Active Scripts Active No Active Prescriptions or Reported Medications Allergies Allergies: Coded Allergies: No Known Drug Allergies (Unverified , 11/12/13) Vitals Vitals Vital Signs Date Time Temp Pulse Resp B/P (MAP) Pulse Ox O2 Delivery O2 Flow Rate FiO2 10/22/16 07:59 Room Air 10/22/16 07:00 98.0 84 20 142/77 (98) 100 98.0 Labs Labs Laboratory Tests Test 10/21/16 15:30 10/21/16 16:20 10/21/16 23:15 10/22/16 07:43 White Blood Count 18.3 x10^3/uL (4.0-11.0) 15.8 x10^3/uL (4.0-11.0) Red Blood Count 2.51 x10^6/uL (4.30-5.70) 3.39 x10^6/uL (4.30-5.70) Hemoglobin 7.3 g/dL (13.0-17.5) 10.1 g/dL (13.0-17.5) Hematocrit 21.3 % (39.0-53.0) 29.4 % (39.0-53.0) Mean Corpuscular Volume 85 fL (79-100) 87 fL (79-100) Mean Corpuscular Hemoglobin 29 pg (25-35) 30 pg (25-35) Mean Corpuscular Hemoglobin Concent 34 g/dL (31-37) 34 g/dL (31-37) Red Cell Distribution Width 15.2 % (11.5-14.5) 15.7 % (11.5-14.5) Platelet Count 352 x10^3/uL (140-400) 345 x10^3/uL (140-400) Neutrophils (%) (Auto) 80 % (31-73) 81 % (31-73) Lymphocytes (%) (Auto) 11 % (24-48) 9 % (24-48) Monocytes (%) (Auto) 8 % (0-9) 8 % (0-9) Eosinophils (%) (Auto) 2 % (0-3) 2 % (0-3) Basophils (%) (Auto) 0 % (0-3) 0 % (0-3) Neutrophils # (Auto) 14.6 x10^3uL (1.8-7.7) 12.8 x10^3uL (1.8-7.7) Lymphocytes # (Auto) 1.9 x10^3/uL (1.0-4.8) 1.5 x10^3/uL (1.0-4.8) Monocytes # (Auto) 1.5 x10^3/uL (0.0-1.1) 1.2 x10^3/uL (0.0-1.1) Eosinophils # (Auto) 0.3 x10^3/uL (0.0-0.7) 0.3 x10^3/uL (0.0-0.7) Basophils # (Auto) 0.1 x10^3/uL (0.0-0.2) 0.0 x10^3/uL (0.0-0.2) Segmented Neutrophils % 84 % (35-66) Band Neutrophils % 3 % (0-9) Lymphocytes % 8 % (24-48) Monocytes % 3 % (0-10) Eosinophils % 2 % (0-5) Toxic Granulation Mod Platelet Estimate Adequate (ADEQUATE) Polychromasia Slight Prothrombin Time 12.8 SEC (11.7-14.0) Prothromb Time International Ratio 1.0 (0.8-1.1) Activated Partial Thromboplast Time 35 SEC (24-38) Sodium Level 132 mmol/L (136-145) 131 mmol/L (136-145) Potassium Level 5.6 mmol/L (3.5-5.1) 5.9 mmol/L (3.5-5.1) Chloride Level 101 mmol/L (98-107) 102 mmol/L (98-107) Carbon Dioxide Level 20 mmol/L (21-32) 21 mmol/L (21-32) Anion Gap 11 (6-14) 8 (6-14) Blood Urea Nitrogen 35 mg/dL (8-26) 31 mg/dL (8-26) Creatinine 2.2 mg/dL (0.7-1.3) 1.8 mg/dL (0.7-1.3) Estimated GFR (Cockcroft-Gault) 30.7 38.7 BUN/Creatinine Ratio 16 (6-20) Glucose Level 325 mg/dL (70-99) 388 mg/dL (70-99) Calcium Level 7.2 mg/dL (8.5-10.1) 7.8 mg/dL (8.5-10.1) Total Bilirubin 0.2 mg/dL (0.2-1.0) Aspartate Amino Transf (AST/SGOT) 29 U/L (15-37) Alanine Aminotransferase (ALT/SGPT) 20 U/L (16-63) Alkaline Phosphatase 339 U/L (46-116) Total Protein 5.3 g/dL (6.4-8.2) Albumin 1.7 g/dL (3.4-5.0) Albumin/Globulin Ratio 0.5 (1.0-1.7) Stool Occult Blood Positive (NEG) Glucose (Fingerstick) 342 mg/dL (70-99) Test 10/22/16 07:55 Glucose (Fingerstick) 362 mg/dL (70-99) Laboratory Tests Test 10/21/16 15:30 10/21/16 16:20 10/21/16 23:15 10/22/16 07:43 White Blood Count 18.3 x10^3/uL (4.0-11.0) 15.8 x10^3/uL (4.0-11.0) Red Blood Count 2.51 x10^6/uL (4.30-5.70) 3.39 x10^6/uL (4.30-5.70) Hemoglobin 7.3 g/dL (13.0-17.5) 10.1 g/dL (13.0-17.5) Hematocrit 21.3 % (39.0-53.0) 29.4 % (39.0-53.0) Mean Corpuscular Volume 85 fL (79-100) 87 fL (79-100) Mean Corpuscular Hemoglobin 29 pg (25-35) 30 pg (25-35) Mean Corpuscular Hemoglobin Concent 34 g/dL (31-37) 34 g/dL (31-37) Red Cell Distribution Width 15.2 % (11.5-14.5) 15.7 % (11.5-14.5) Platelet Count 352 x10^3/uL (140-400) 345 x10^3/uL (140-400) Neutrophils (%) (Auto) 80 % (31-73) 81 % (31-73) Lymphocytes (%) (Auto) 11 % (24-48) 9 % (24-48) Monocytes (%) (Auto) 8 % (0-9) 8 % (0-9) Eosinophils (%) (Auto) 2 % (0-3) 2 % (0-3) Basophils (%) (Auto) 0 % (0-3) 0 % (0-3) Neutrophils # (Auto) 14.6 x10^3uL (1.8-7.7) 12.8 x10^3uL (1.8-7.7) Lymphocytes # (Auto) 1.9 x10^3/uL (1.0-4.8) 1.5 x10^3/uL (1.0-4.8) Monocytes # (Auto) 1.5 x10^3/uL (0.0-1.1) 1.2 x10^3/uL (0.0-1.1) Eosinophils # (Auto) 0.3 x10^3/uL (0.0-0.7) 0.3 x10^3/uL (0.0-0.7) Basophils # (Auto) 0.1 x10^3/uL (0.0-0.2) 0.0 x10^3/uL (0.0-0.2) Segmented Neutrophils % 84 % (35-66) Band Neutrophils % 3 % (0-9) Lymphocytes % 8 % (24-48) Monocytes % 3 % (0-10) Eosinophils % 2 % (0-5) Toxic Granulation Mod Platelet Estimate Adequate (ADEQUATE) Polychromasia Slight Prothrombin Time 12.8 SEC (11.7-14.0) Prothromb Time International Ratio 1.0 (0.8-1.1) Activated Partial Thromboplast Time 35 SEC (24-38) Sodium Level 132 mmol/L (136-145) 131 mmol/L (136-145) Potassium Level 5.6 mmol/L (3.5-5.1) 5.9 mmol/L (3.5-5.1) Chloride Level 101 mmol/L (98-107) 102 mmol/L (98-107) Carbon Dioxide Level 20 mmol/L (21-32) 21 mmol/L (21-32) Anion Gap 11 (6-14) 8 (6-14) Blood Urea Nitrogen 35 mg/dL (8-26) 31 mg/dL (8-26) Creatinine 2.2 mg/dL (0.7-1.3) 1.8 mg/dL (0.7-1.3) Estimated GFR (Cockcroft-Gault) 30.7 38.7 BUN/Creatinine Ratio 16 (6-20) Glucose Level 325 mg/dL (70-99) 388 mg/dL (70-99) Calcium Level 7.2 mg/dL (8.5-10.1) 7.8 mg/dL (8.5-10.1) Total Bilirubin 0.2 mg/dL (0.2-1.0) Aspartate Amino Transf (AST/SGOT) 29 U/L (15-37) Alanine Aminotransferase (ALT/SGPT) 20 U/L (16-63) Alkaline Phosphatase 339 U/L (46-116) Total Protein 5.3 g/dL (6.4-8.2) Albumin 1.7 g/dL (3.4-5.0) Albumin/Globulin Ratio 0.5 (1.0-1.7) Stool Occult Blood Positive (NEG) Glucose (Fingerstick) 342 mg/dL (70-99) Test 10/22/16 07:55 Glucose (Fingerstick) 362 mg/dL (70-99) VTE Prophylaxis Ordered VTE Prophylaxis Devices: Contraindicated VTE Pharmacological Prophylaxi: Yes Assessment/Plan Assessment/Plan follow H/H. with hyperkalemia will give kaexylate enema and repeat this pm if K + above 5.5. await GI eval and likely endoscopy. see orders. SCOTTIE VILLALBA MD Oct 22, 2016 11:38
[2016-10-22] MEDS ORDERED: PROPOFOL 40 ML IV ONE (13:18)
--- NOTE | 2016-10-22 13:19 | PDOC2 ---
GI CONSULT Date Date/Time DATE: 10/22/16 TIME: 13:09 Providers Attending Physician William Nieves MD Referring Physician Consulting Physician Dr. Combs History of Present Illness HPI 61 yo male with history of DM, alcohol related cirrhosis, vascular disease here recently for hernia repain with some wound issues and was discharged to [facility] Sunday. New onset of rectal bleeding yesterday- first time- not sure if ever had colonoscopy before. Some crampy mild pain with bleeding, mostly in RLQ near site of drain. No prior bleeding, and not on any blood thinners. Hgb on admission 7.1, a significant drop from last week before d/c. Denies change in bowels, prior GERD or other GI complains History Past Medical History DM cirrhosis vascular dz Past Surgical History SBO hernia foot abscess Past Surgical History: Other (see above), No pertinent history Social/Personal History history of regular alcohol use Review of Systems Constitutional: yes: weakness Gastrointestinal: Yes: hematochezia, abdominal pain Allergies Allergies Allergies Coded Allergies Type Severity Reaction Last Updated Verified No Known Drug Allergies 11/12/13 No Medications Medications Current Medications Dextrose/Lactated Ringer's 1,000 ml @ 75 mls/hr [id number] IV Last administered on 10/21/16 22:35; Start 10/21/16 at 19:15 Polyethylene Glycol (miraLAX Powder BULK BOTTLE) 238 gm 1X ONCE PO Last administered on 10/22/16 01:10; Start 10/21/16 at 22:45; Stop 10/21/16 at 22:46 ; Status DC Pantoprazole Sodium (Protonix) 40 mg 1X ONCE PO Last administered on 22:35; Start 10/21/16 at 22:15; Stop 10/21/16 at 22:16; Status DC Pantoprazole Sodium (Protonix) 40 mg DAILYAC PO ; Start 10/22/16 at 07:30 Dicyclomine HCl (Bentyl) 20 mg Q8HRS PO Last administered on 10/21/16 22:35; Start 10/21/16 at 22:15 Ondansetron HCl (Zofran) 4 mg PRN Q6HRS PRN IV NAUSEA/VOMITING Last administered on 10/21/16 22:43; Start 10/21/16 at 22:45 Sodium Polystyrene Sulfonate (Kayexalate) 30 gm 1X ONCE [place] Last administered on 10/22/16t 12:52; Start 10/22/16 at 11:30; Stop 10/22/16 at 11:38; Status DC Active Scripts Active No Active Prescriptions or Reported Medications Physical Exam Physical Exam alert chest - clear cor- RRR abd- soft drain in RLQ with some leakage and dressing- no point tenderness, good bowel sounds extrem- no CCE neuro- alert Labs Labs Laboratory Tests Test 10/21/16 15:30 10/21/16 16:20 10/21/16 23:15 10/22/16 07:43 White Blood Count 18.3 x10^3/uL (4.0-11.0) 15.8 x10^3/uL (4.0-11.0) Red Blood Count 2.51 x10^6/uL (4.30-5.70) 3.39 x10^6/uL (4.30-5.70) Hemoglobin 7.3 g/dL (13.0-17.5) 10.1 g/dL (13.0-17.5) Hematocrit 21.3 % (39.0-53.0) 29.4 % (39.0-53.0) Mean Corpuscular Volume 85 fL (79-100) 87 fL (79-100) Mean Corpuscular Hemoglobin 29 pg (25-35) 30 pg (25-35) Mean Corpuscular Hemoglobin Concent 34 g/dL (31-37) 34 g/dL (31-37) Red Cell Distribution Width 15.2 % (11.5-14.5) 15.7 % (11.5-14.5) Platelet Count 352 x10^3/uL (140-400) 345 x10^3/uL (140-400) Neutrophils (%) (Auto) 80 % (31-73) 81 % (31-73) Lymphocytes (%) (Auto) 11 % (24-48) 9 % (24-48) Monocytes (%) (Auto) 8 % (0-9) 8 % (0-9) Eosinophils (%) (Auto) 2 % (0-3) 2 % (0-3) Basophils (%) (Auto) 0 % (0-3) 0 % (0-3) Neutrophils # (Auto) 14.6 x10^3uL (1.8-7.7) 12.8 x10^3uL (1.8-7.7) Lymphocytes # (Auto) 1.9 x10^3/uL (1.0-4.8) 1.5 x10^3/uL (1.0-4.8) Monocytes # (Auto) 1.5 x10^3/uL (0.0-1.1) 1.2 x10^3/uL (0.0-1.1) Eosinophils # (Auto) 0.3 x10^3/uL (0.0-0.7) 0.3 x10^3/uL (0.0-0.7) Basophils # (Auto) 0.1 x10^3/uL (0.0-0.2) 0.0 x10^3/uL (0.0-0.2) Segmented Neutrophils % 84 % (35-66) Band Neutrophils % 3 % (0-9) Lymphocytes % 8 % (24-48) Monocytes % 3 % (0-10) Eosinophils % 2 % (0-5) Toxic Granulation Mod Platelet Estimate Adequate (ADEQUATE) Polychromasia Slight Prothrombin Time 12.8 SEC (11.7-14.0) Prothromb Time International Ratio 1.0 (0.8-1.1) Activated Partial Thromboplast Time 35 SEC (24-38) Sodium Level 132 mmol/L (136-145) 131 mmol/L (136-145) Potassium Level 5.6 mmol/L (3.5-5.1) 5.9 mmol/L (3.5-5.1) Chloride Level 101 mmol/L (98-107) 102 mmol/L (98-107) Carbon Dioxide Level 20 mmol/L (21-32) 21 mmol/L (21-32) Anion Gap 11 (6-14) 8 (6-14) Blood Urea Nitrogen 35 mg/dL (8-26) 31 mg/dL (8-26) Creatinine 2.2 mg/dL (0.7-1.3) 1.8 mg/dL (0.7-1.3) Estimated GFR (Cockcroft-Gault) 30.7 38.7 BUN/Creatinine Ratio 16 (6-20) Glucose Level 325 mg/dL (70-99) 388 mg/dL (70-99) Calcium Level 7.2 mg/dL (8.5-10.1) 7.8 mg/dL (8.5-10.1) Total Bilirubin 0.2 mg/dL (0.2-1.0) Aspartate Amino Transf (AST/SGOT) 29 U/L (15-37) Alanine Aminotransferase (ALT/SGPT) 20 U/L (16-63) Alkaline Phosphatase 339 U/L (46-116) Total Protein 5.3 g/dL (6.4-8.2) Albumin 1.7 g/dL (3.4-5.0) Albumin/Globulin Ratio 0.5 (1.0-1.7) Stool Occult Blood Positive (NEG) Glucose (Fingerstick) 342 mg/dL (70-99) Test 10/22/16 07:55 10/22/16 11:01 Glucose (Fingerstick) 362 mg/dL (70-99) 316 mg/dL (70-99) Assessment Assessment Hematochezia with blood loss anemia- new onset- unclear cause- sounds diverticular but cant r/o polyp, mass, AVM, colitis etc Post op hernia repair with wound drain Elevated potassium- was low last week- on PO, over corrected with mild increase in creatinine Problems: Plan Plan Bowel prep transfuse to Hgb over 9 monitor and correct elevated potassium consider colonoscopy after discussion with anesthesia Thank you for allowing us to participate in the care of your patient. We will continue to follow the patient with you and provide an appropriate recommendation as it becomes available. DAYSI COMBS MD Oct 22, 2016 13:19
[2016-10-22 15:50] LABS: CALCIUM 7.6 mg/dL (8.5-10.1); CREATININE 1.4 mg/dL (0.7-1.3); GFR 51.7; POTASSIUM 4.8 mmol/L (3.5-5.1)
--- NOTE | 2016-10-22 15:57 | PDOC4 ---
PROCEDURE Procedure Colonoscopy- see report NO blood seen- old or new. Three small NON bleeding polyps seen and removed. No obvious diverticulosis and no mucosal abnormalities to explain bleeding.Note - at time of procedure we noted some red blood in VARUN drain not seen earlier Plan- close observation- if further bleeding consider EGD DAYSI COMBS MD Oct 22, 2016 15:57
--- NOTE | 2016-10-22 16:56 | PDOC ---
Provider Note Provider Note no more bloody stools. no increased abd pain. colonoscopy neg for bleeding or old blood--d/w dr. marvin afeb vss kleber now serosang. was not bloody yest abd soft nd nt vac in place a/p gi bleed. source unclear bloody ascites (serosang) per kleber drain. source unclear. will observe. check hgb in am. TANYA SERRA MD Oct 22, 2016 16:56
[2016-10-23 02:58] VITALS: BP 128/75
[2016-10-23 04:25] LABS: BASO % 0 % (0-3); EOS % 2 % (0-3); HEMATOCRIT 26.2 % (39.0-53.0); HEMOGLOBIN 8.9 g/dL (13.0-17.5); LYMPH # 1.2 x10^3/uL (1.0-4.8); LYMPH % 10 % (24-48); MEAN CORPUSCULAR HEMOGLOBIN 30 pg (25-35); MEAN CORPUSCULAR HGB CONC 34 g/dL (31-37); MEAN CORPUSCULAR VOLUME 87 fL (79-100); MONO % 8 % (0-9); NEUT % 79 % (31-73); PLATELET COUNT 324 x10^3/uL (140-400); RED CELL DISTRIBUTION WIDTH 15.3 % (11.5-14.5); WHITE BLOOD COUNT 12.4 x10^3/uL (4.0-11.0)
[2016-10-23 04:36] LABS: CALCIUM 7.7 mg/dL (8.5-10.1); CREATININE 1.3 mg/dL (0.7-1.3); GFR 56.3; POTASSIUM 4.9 mmol/L (3.5-5.1)
[2016-10-23] MEDS: PANTOPRAZOLE 40 MG TABLET.DR. PO SCH (06:16)
[2016-10-23] MEDS: DICYCLOMINE HCL 10 MG CAPSULE PO SCH ×3 (06:16→17:50)
[2016-10-23 07:36] VITALS: BP 143/74
--- NOTE | 2016-10-23 08:49 | PDOC ---
Provider Note Provider Note VSS, NO MORE BLOOD- HB 8.9, INR OK- HE HAS CIRRHOSIS, COULD THIS HAVE BEEN VARICEAL BLEED? NO PRIOR EGD TO DX BUT HX OF ASCITES, LONG ETOH- RESUME LEVEMIR , FOLLOW- NO COAG PROBLEM RE LIVER THOUGH LEANN BOB MD Oct 23, 2016 08:49
[2016-10-23] MEDS: INSULIN DETEMIR 300 UNITS/3 ML INSULN.PEN. SQ SCH ×2 (09:00→18:16)
[2016-10-23 10:50] VITALS: BP 121/73
--- NOTE | 2016-10-23 12:39 | PDOC ---
Provider Note Provider Note SURG no further bleeding per patient hungry belly soft, VARUN with serous drainage cirrhosis ascites GI blood loss? appears stable no new surgical recs GI eval in progress will d/c VARUN drain and use stoma appliance BREN MENDIOLA MD Oct 23, 2016 12:39
--- NOTE | 2016-10-23 12:59 | PDOC ---
Subjective: Subjective: Denies bleeding. Objective: Objective: No recurrent bleeding per RN. Vital Signs: Vital Signs Date Time Temp Pulse Resp B/P (MAP) Pulse Ox O2 Delivery O2 Flow Rate FiO2 10/23/16 10:50 98.5 85 18 121/73 (89) 98 Room Air 98.5 10/22/16 14:26 3 Labs: Laboratory Tests Test 10/22/16 16:41 10/22/16 20:57 10/23/16 07:53 10/23/16 11:26 Glucose (Fingerstick) 262 mg/dL (70-99) 332 mg/dL (70-99) 226 mg/dL (70-99) 293 mg/dL (70-99) PE: GEN: NAD LUNGS: clear HEART: RRR ABD: ?distended, VARUN serosang, bandages from recent hernia repair NEURO/PSYCH: A & O 3 A/P: Hematochezia - no recurrence Alcoholic cirrhosis/ascites Recent hernia repair, VARUN drain in place -serosang drainage today, apparently bloody yesterday -plans to remove per surg note -- D/w Dr. Alvarenga, will plan for EGD tomorrow afternoon r/o esophageal varices/ upper GI source of bleeding. Okay for breakfast tomorrow a.m., then NPO. Continue PPI. CYNTHIA COTO Oct 23, 2016 12:59
[2016-10-23] MEDS ORDERED: DEXTROSE 50% 25 GM / 50ML DISP.SYRIN. IV PRN (13:00)
[2016-10-23] MEDS ORDERED: INSULIN ASPART 300 UNITS/3 ML INSULN.PEN SQ ONE (13:00)
[2016-10-23 15:45] VITALS: BP 147/86
[2016-10-23] MEDS: ACETAMINOPHEN 325 MG TABLET. PO PRN (17:49)
[2016-10-23] MEDS: INSULIN ASPART 300 UNITS/3 ML INSULN.PEN SQ SCH (18:16)
[2016-10-23 19:00] VITALS: BP 99/66
[2016-10-23 23:00] VITALS: BP 126/76
[2016-10-24] MEDS: IV DEXTROSE 5%-LACT RINGERS 1,000 ML IV SCH ×3 (00:35→21:44)
[2016-10-24 03:00] VITALS: BP 123/72
[2016-10-24 05:59] LABS: BASO % 0 % (0-3); EOS % 3 % (0-3); HEMATOCRIT 24.6 % (39.0-53.0); HEMOGLOBIN 8.8 g/dL (13.0-17.5); LYMPH # 1.5 x10^3/uL (1.0-4.8); LYMPH % 12 % (24-48); MEAN CORPUSCULAR HEMOGLOBIN 31 pg (25-35); MEAN CORPUSCULAR HGB CONC 36 g/dL (31-37); MEAN CORPUSCULAR VOLUME 86 fL (79-100); MONO % 10 % (0-9); NEUT % 76 % (31-73); PLATELET COUNT 339 x10^3/uL (140-400); RED BLOOD COUNT 2.84 x10^6/uL (4.30-5.70); RED CELL DISTRIBUTION WIDTH 15.3 % (11.5-14.5); WHITE BLOOD COUNT 12.5 x10^3/uL (4.0-11.0)
[2016-10-24] MEDS: DICYCLOMINE HCL 10 MG CAPSULE PO SCH (06:01)
[2016-10-24] MEDS ORDERED: fentaNYL PF VIAL 100 MCG/2 ML VIAL IV PRN ×2 (07:00)
[2016-10-24] MEDS ORDERED: PROCHLORPERAZINE 10 MG/2 ML VIAL. IV PRN (07:00)
[2016-10-24] MEDS ORDERED: MORPHINE SULFATE 2 MG/ML DISP.SYRIN. IV PRN (07:00)
[2016-10-24] MEDS ORDERED: ONDANSETRON PF 4 MG/2 ML VIAL. IV PRN (07:00)
[2016-10-24] MEDS ORDERED: HYDROmorphone 2 MG/ML VIAL IV PRN (07:00)
[2016-10-24] MEDS ORDERED: LIDOCAINE 1% 1 ML SYRINGE. ID PRN (07:00)
[2016-10-24] MEDS ORDERED: IV RINGERS,LACTATED 1000ML 1,000 ML IV SCH (07:00)
[2016-10-24] MEDS: INSULIN DETEMIR 300 UNITS/3 ML INSULN.PEN. SQ SCH ×2 (07:00→17:31)
[2016-10-24 07:05] VITALS: BP 123/74
[2016-10-24] MEDS: INSULIN ASPART 300 UNITS/3 ML INSULN.PEN SQ SCH ×3 (08:00→17:00)
--- NOTE | 2016-10-24 08:28 | PDOC ---
Provider Note Provider Note vss, no more bleed, hb same- glucose better, for egd today re ? source- on protonix but at risk for varices LEANN BOB MD Oct 24, 2016 08:28
[2016-10-24] MEDS: PANTOPRAZOLE 40 MG TABLET.DR. PO SCH (08:55)
--- NOTE | 2016-10-24 10:32 | PDOC ---
SURGICAL PROGRESS NOTE Subjective no new complaints for EGD today Vital Signs Vital Signs Date Time Temp Pulse Resp B/P (MAP) Pulse Ox O2 Delivery O2 Flow Rate FiO2 10/24/16 08:00 Room Air 10/24/16 07:05 97.4 84 19 123/74 (90) 94 97.4 I&O Intake and Output 10/24/16 07:00 Intake Total 970 ml Output Total 1798 ml Balance -828 ml Intake Oral 970 ml Output Urine Total 300 ml Urine/Stool Mix 403 ml Drainage Total 1095 ml # Voids 3 PATIENT HAS A LUGO: No General: Alert, No acute distress Abdomen: Soft, Other (wound vac in place, ostomy appliance on old VARUN drain site ) Labs Laboratory Tests Test 10/22/16 11:01 10/22/16 15:00 10/22/16 16:41 10/22/16 20:57 Glucose (Fingerstick) 316 mg/dL (70-99) 262 mg/dL (70-99) 332 mg/dL (70-99) Sodium Level 136 mmol/L (136-145) Potassium Level 4.8 mmol/L (3.5-5.1) Chloride Level 106 mmol/L (98-107) Carbon Dioxide Level 20 mmol/L (21-32) Anion Gap 10 (6-14) Blood Urea Nitrogen 26 mg/dL (8-26) Creatinine 1.4 mg/dL (0.7-1.3) Estimated GFR (Cockcroft-Gault) 51.7 Glucose Level 274 mg/dL (70-99) Calcium Level 7.6 mg/dL (8.5-10.1) Test 10/23/16 04:06 10/23/16 07:53 10/23/16 11:26 10/23/16 17:15 White Blood Count 12.4 x10^3/uL (4.0-11.0) Red Blood Count 3.00 x10^6/uL (4.30-5.70) Hemoglobin 8.9 g/dL (13.0-17.5) Hematocrit 26.2 % (39.0-53.0) Mean Corpuscular Volume 87 fL (79-100) Mean Corpuscular Hemoglobin 30 pg (25-35) Mean Corpuscular Hemoglobin Concent 34 g/dL (31-37) Red Cell Distribution Width 15.3 % (11.5-14.5) Platelet Count 324 x10^3/uL (140-400) Neutrophils (%) (Auto) 79 % (31-73) Lymphocytes (%) (Auto) 10 % (24-48) Monocytes (%) (Auto) 8 % (0-9) Eosinophils (%) (Auto) 2 % (0-3) Basophils (%) (Auto) 0 % (0-3) Neutrophils # (Auto) 9.8 x10^3uL (1.8-7.7) Lymphocytes # (Auto) 1.2 x10^3/uL (1.0-4.8) Monocytes # (Auto) 1.0 x10^3/uL (0.0-1.1) Eosinophils # (Auto) 0.3 x10^3/uL (0.0-0.7) Basophils # (Auto) 0.0 x10^3/uL (0.0-0.2) Sodium Level 139 mmol/L (136-145) Potassium Level 4.9 mmol/L (3.5-5.1) Chloride Level 108 mmol/L (98-107) Carbon Dioxide Level 24 mmol/L (21-32) Anion Gap 7 (6-14) Blood Urea Nitrogen 19 mg/dL (8-26) Creatinine 1.3 mg/dL (0.7-1.3) Estimated GFR (Cockcroft-Gault) 56.3 Glucose Level 222 mg/dL (70-99) Calcium Level 7.7 mg/dL (8.5-10.1) Glucose (Fingerstick) 226 mg/dL (70-99) 293 mg/dL (70-99) 158 mg/dL (70-99) Test 10/23/16 20:58 10/24/16 05:40 10/24/16 07:07 Glucose (Fingerstick) 191 mg/dL (70-99) 90 mg/dL (70-99) White Blood Count 12.5 x10^3/uL (4.0-11.0) Red Blood Count 2.84 x10^6/uL (4.30-5.70) Hemoglobin 8.8 g/dL (13.0-17.5) Hematocrit 24.6 % (39.0-53.0) Mean Corpuscular Volume 86 fL (79-100) Mean Corpuscular Hemoglobin 31 pg (25-35) Mean Corpuscular Hemoglobin Concent 36 g/dL (31-37) Red Cell Distribution Width 15.3 % (11.5-14.5) Platelet Count 339 x10^3/uL (140-400) Neutrophils (%) (Auto) 76 % (31-73) Lymphocytes (%) (Auto) 12 % (24-48) Monocytes (%) (Auto) 10 % (0-9) Eosinophils (%) (Auto) 3 % (0-3) Basophils (%) (Auto) 0 % (0-3) Neutrophils # (Auto) 9.4 x10^3uL (1.8-7.7) Lymphocytes # (Auto) 1.5 x10^3/uL (1.0-4.8) Monocytes # (Auto) 1.2 x10^3/uL (0.0-1.1) Eosinophils # (Auto) 0.3 x10^3/uL (0.0-0.7) Basophils # (Auto) 0.0 x10^3/uL (0.0-0.2) Laboratory Tests Test 10/23/16 11:26 10/23/16 17:15 10/23/16 20:58 10/24/16 05:40 Glucose (Fingerstick) 293 mg/dL (70-99) 158 mg/dL (70-99) 191 mg/dL (70-99) White Blood Count 12.5 x10^3/uL (4.0-11.0) Red Blood Count 2.84 x10^6/uL (4.30-5.70) Hemoglobin 8.8 g/dL (13.0-17.5) Hematocrit 24.6 % (39.0-53.0) Mean Corpuscular Volume 86 fL (79-100) Mean Corpuscular Hemoglobin 31 pg (25-35) Mean Corpuscular Hemoglobin Concent 36 g/dL (31-37) Red Cell Distribution Width 15.3 % (11.5-14.5) Platelet Count 339 x10^3/uL (140-400) Neutrophils (%) (Auto) 76 % (31-73) Lymphocytes (%) (Auto) 12 % (24-48) Monocytes (%) (Auto) 10 % (0-9) Eosinophils (%) (Auto) 3 % (0-3) Basophils (%) (Auto) 0 % (0-3) Neutrophils # (Auto) 9.4 x10^3uL (1.8-7.7) Lymphocytes # (Auto) 1.5 x10^3/uL (1.0-4.8) Monocytes # (Auto) 1.2 x10^3/uL (0.0-1.1) Eosinophils # (Auto) 0.3 x10^3/uL (0.0-0.7) Basophils # (Auto) 0.0 x10^3/uL (0.0-0.2) Test 10/24/16 07:07 Glucose (Fingerstick) 90 mg/dL (70-99) Problem List Problems Medical Problems: (1) Anemia Status: Acute (2) GI bleed Status: Acute Assessment/Plan GI bleeding, stable wound care ongoing await results of EGD no new surg recs @ present Problems: BREN MENDIOLA MD Oct 24, 2016 10:32
[2016-10-24 11:18] VITALS: BP 94/60
[2016-10-24 15:16] VITALS: BP 128/79
[2016-10-24] MEDS ORDERED: PROPOFOL 20 ML IV ONE (16:21)
[2016-10-24] MEDS ORDERED: LIDOCAINE 2% PF Vial for OR 5 ML VIAL. ONE (16:21)
--- NOTE | 2016-10-24 16:41 | PDOC4 ---
Operative Note Operative Note EGD Meds propofol per anesthesia Pre-op dx acute blood loss anemia Post-op dx portal hypertensive gastropathy Plan resume diet and meds DELVIS BATISTA MD Oct 24, 2016 16:41
[2016-10-24 19:35] VITALS: BP 109/70
[2016-10-24 23:56] VITALS: BP 131/71
[2016-10-25 03:00] VITALS: BP 128/72
[2016-10-25] MEDS: IV DEXTROSE 5%-LACT RINGERS 1,000 ML IV SCH (03:15)
[2016-10-25] MEDS: ACETAMINOPHEN 325 MG TABLET. PO PRN (03:37)
[2016-10-25 07:05] VITALS: BP 141/81
--- NOTE | 2016-10-25 08:14 | DISCH ---
DISCHARGE FINAL DIAGNOSIS Problems Medical Problems: (1) Anemia Status: Acute (2) GI bleed Status: Acute CONDITION ON DISCHARGE: Stable SNF STAY <30 DAYS: Yes POST DISCHARGE ORDERS ACTIVITY ORDERS: Activity as tolerated WEIGHT BEARING STATUS: Full weight bearing BATHING ORDERS: Shower-keep dressing dry, No Tub Bath until see DIET AFTER DISCHARGE: ADA WOUND/INCISION CARE: Ice to area for comfort, Keep wound/cast CDI, Other, see below CHECKS AFTER DISCHARGE CHECKS AFTER DISCHARGE: Check blood sugar, ac/hs FOLLOW-UP PHYSICIAN FOLLOW-UP: prn TREATMENT/EQUIPMENT ORDERS ADAPTIVE EQUIPMENT NEEDED: None LEANN BOB MD Oct 25, 2016 08:14
--- NOTE | 2016-10-25 08:16 | PDOC3 ---
Discharge Summary Visit Information Date of Admission: Oct 21, 2016 Date of Discharge: Oct 25, 2016 Final Diagnosis Problems Medical Problems: (1) Anemia Status: Acute (2) GI bleed Status: Acute Brief Hospital Course Allergies Allergies Coded Allergies Type Severity Reaction Last Updated Verified No Known Drug Allergies 10/24/16 No Vital Signs Vital Signs Date Time Temp Pulse Resp B/P (MAP) Pulse Ox O2 Delivery O2 Flow Rate FiO2 10/25/16 07:05 97.2 82 18 141/81 (101) 96 Room Air 97.2 10/24/16 16:44 5.0 Lab Results Laboratory Tests Test 10/23/16 11:26 10/23/16 17:15 10/23/16 20:58 10/24/16 05:40 Glucose (Fingerstick) 293 mg/dL (70-99) 158 mg/dL (70-99) 191 mg/dL (70-99) White Blood Count 12.5 x10^3/uL (4.0-11.0) Red Blood Count 2.84 x10^6/uL (4.30-5.70) Hemoglobin 8.8 g/dL (13.0-17.5) Hematocrit 24.6 % (39.0-53.0) Mean Corpuscular Volume 86 fL (79-100) Mean Corpuscular Hemoglobin 31 pg (25-35) Mean Corpuscular Hemoglobin Concent 36 g/dL (31-37) Red Cell Distribution Width 15.3 % (11.5-14.5) Platelet Count 339 x10^3/uL (140-400) Neutrophils (%) (Auto) 76 % (31-73) Lymphocytes (%) (Auto) 12 % (24-48) Monocytes (%) (Auto) 10 % (0-9) Eosinophils (%) (Auto) 3 % (0-3) Basophils (%) (Auto) 0 % (0-3) Neutrophils # (Auto) 9.4 x10^3uL (1.8-7.7) Lymphocytes # (Auto) 1.5 x10^3/uL (1.0-4.8) Monocytes # (Auto) 1.2 x10^3/uL (0.0-1.1) Eosinophils # (Auto) 0.3 x10^3/uL (0.0-0.7) Basophils # (Auto) 0.0 x10^3/uL (0.0-0.2) Test 10/24/16 07:07 10/24/16 11:59 10/24/16 17:23 10/24/16 21:03 Glucose (Fingerstick) 90 mg/dL (70-99) 200 mg/dL (70-99) 126 mg/dL (70-99) 270 mg/dL (70-99) Laboratory Tests Test 10/24/16 11:59 10/24/16 17:23 10/24/16 21:03 Glucose (Fingerstick) 200 mg/dL (70-99) 126 mg/dL (70-99) 270 mg/dL (70-99) Brief Hospital Course Mr. Burks is a 61 old [sex] who presented with [ ]acute hematochezia, hb down to 7.9- got 2 u prbc , hb stable 8.8- both colonoscopy and egd were free of bleed source- labs ok, stable vss, ok for return to pp- add iron bid Discharge Information Condition at Discharge: Improved Disposition/Orders: D/C to Another Facility No Active Prescriptions or Reported Meds LEANN BOB MD Oct 25, 2016 08:16
[2016-10-25] MEDS: PANTOPRAZOLE 40 MG TABLET.DR. PO SCH (08:59)
[2016-10-25] MEDS ORDERED: IRON POLYSACCHARIDE COMPLEX 150 MG CAPSULE PO SCH (09:00)
[2016-10-25] MEDS: INSULIN DETEMIR 300 UNITS/3 ML INSULN.PEN. SQ SCH (09:05)
[2016-10-25 10:47] VITALS: BP 99/63
--- NOTE | 2016-10-25 12:12 | PATHOLOGY ---
PATHOLOGY REPORT * * * * * * * * FINAL DIAGNOSIS: A. Colon biopsies, transverse colon polyp: - Tubular adenoma. - Vegetable material. B. Colon biopsies, sigmoid colon polyp: - Tubular adenoma. COMMENT: There is no high-grade dysplasia or evidence of malignancy. (JPM:mgr; 10/24/2016) REPORT ELECTRONICALLY SIGNED BY: Tavon Springer M.D. DATE/TIME: 10/24/2016 13:44 * * * * * * * * GROSS PATHOLOGY: A. Received in formalin labeled "John Keith, transverse colon polyp," are multiple segments of jo soft tissue measuring from 0.1 up to 0.6 cm in maximum dimension. The specimen is submitted entirely in cassette A1. B. Received in formalin labeled "sigmoid colon polyp," are two segments of jo soft tissue measuring 0.3 and 0.4 cm in maximum dimension. The specimen is submitted entirely in cassette B1. (JPM; 10/23/16) INITIAL CPT CODE(S): A; 73542 B; 11819 Professional services performed [place] [address] Technical services performed by [facility] at [address] [place] [address]. SPECIMEN(S) RECEIVED: A.Transverse colon polyp B.Sigmoid colon polyp CLINICAL HISTORY: GI bleed PATIENT: JOHN KEITH /AGE: 12 1955 (Age: 61) PATIENT #: [id number] ALT CASE #: SPECIMEN COLLECTION DATE: 10/22/2016 SPECIMEN RECEIVED DATE: 10/23/2016 [facility] - [address] [place] [address] - PHONE: [phone] * * * END OF REPORT * * *
--- NOTE | 2016-10-25 12:18 | PDOC ---
Subjective: Subjective: Feeling better, going to PP today. Objective: Vital Signs: Vital Signs Date Time Temp Pulse Resp B/P (MAP) Pulse Ox O2 Delivery O2 Flow Rate FiO2 10/25/16 10:47 98.4 88 18 99/63 (75) 100 Room Air 98.4 10/24/16 16:44 5.0 Labs: Laboratory Tests Test 10/24/16 17:23 10/24/16 21:03 10/25/16 07:05 Glucose (Fingerstick) 126 mg/dL 270 mg/dL 122 mg/dL Imaging: EGD 10/24/16: portal hypertensive gastropathy PE: GEN: NAD LUNGS: clear HEART: RRR ABD: distended, site of VARUN on right w/ ostomy bag w/ clear/yellow drainage NEURO/PSYCH: A & O 3 A/P: Hematochezia - no recurrence Alcoholic cirrhosis -w/ ascites, portal hypertensive gastropathy, (no varices) Recent hernia repair -VARUN removed, now w/ ostomy bag from drainage -- Note plans for DC - okay per GI. CYNTHIA COTO Oct 25, 2016 12:18
== END 2016-10-25 12:01 | DRG 377 ==
LOC: ER 15:24 → 6 SOUTH 16:30
PROVIDERS: ADMIT Family Medicine; ATTEND Family Medicine
PROC: 0DJ08ZZ Inspection of Upper Intestinal Tract, Via Natural or Artificial Opening Endoscopic (ICD-10-PCS; principal; 2016-10-21)
PROC: 0DJD8ZZ Inspection of Lower Intestinal Tract, Via Natural or Artificial Opening Endoscopic (ICD-10-PCS; 2016-10-21)
PROC: 30233N1 Transfusion of Nonautologous Red Blood Cells into Peripheral Vein, Percutaneous Approach (ICD-10-PCS; 2016-10-21)
DX: K92.2 Gastrointestinal hemorrhage, unspecified (principal); E43 Unspecified severe protein-calorie malnutrition; D62 Acute posthemorrhagic anemia; K76.6 Portal hypertension; R64 Cachexia; E87.5 Hyperkalemia; E78.00 Pure hypercholesterolemia, unspecified; E78.5 Hyperlipidemia, unspecified; K70.31 Alcoholic cirrhosis of liver with ascites; K42.9 Umbilical hernia without obstruction or gangrene; K31.89 Other diseases of stomach and duodenum; E11.42 Type 2 diabetes mellitus with diabetic polyneuropathy; Z89.429 Acquired absence of other toe(s), unspecified side; Z82.49 Family history of ischemic heart disease and other diseases of the circulatory system; Z79.899 Other long term (current) drug therapy; Z79.1 Long term (current) use of non-steroidal anti-inflammatories (NSAID); Z79.2 Long term (current) use of antibiotics; I12.9 Hypertensive chronic kidney disease with stage 1 through stage 4 chronic kidney disease, or unspecified chronic kidney disease; N18.3 Chronic kidney disease, stage 3 (moderate)
CPT/HCPCS: 36415; 80048; 80053; 82274; 82962; 85007; 85027; 85610; 85730; 86850; 86900; 86901; 86920; 87045; 87324; 88305; 93005; J1815; J2001; J2405; J2704; J3010; J7120; P9016; 97530; 97535; 99291-25

== ENCOUNTER → 2019-04-03 | Outpatient (CLI) | payer MEDICARE ==
[~2019-04-03] MED LIST changes: +AMLO5TAB10 PO; -AMLO5TAB2 PO; -HYDR12.53 PO; +HYDR12.575 PO; -METF-620 PO; +METF10007 PO; -SPIR50TA2 PO; +SPIR50TA4 PO
--- NOTE | 2019-04-03 10:08 | RAD ---
ANKLE LEFT 3V 04/03/2019 12:00 AM INDICATION: Pain with prior ORIF COMPARISON: Left foot radiograph 11/12/2013 TECHNIQUE: 3 views of the left ankle are provided. FINDINGS/ IMPRESSION: 1. Lateral plate and screw fixation of the distal fibula is identified. There are 2 threaded screws transfixing the medial malleolus. Tibial plafond and talar dome are intact. 2. No acute fracture or dislocation is identified. No lucency surrounding the hardware. 3. Extensive vascular calcifications are present. No significant soft tissue swelling. Bone mineralization is within normal limits. Tiny posterior calcaneal enthesophyte is present. Electronically signed by: Sarah Leahy MD (04/03/2019 10:06 AM) [id number]
== END | disposition home or self-care (01) ==
LOC: RAD 09:26
PROVIDERS: ATTEND Family Medicine
DX: M77.32 Calcaneal spur, left foot (principal)
CPT/HCPCS: 73610

== ENCOUNTER → 2019-09-25 | Outpatient (CLI) | payer MEDICARE ==
--- NOTE | 2019-09-25 16:46 | RAD ---
FOOT LEFT 3V 09/25/2019 12:00 AM INDICATION: Left foot diabetic wound COMPARISON: None available. TECHNIQUE: 3 views left foot are provided. FINDINGS/ IMPRESSION: 1. There is a chronic remodeled fracture involving the mid fifth metatarsal of the left foot. Heterotopic ossification is noted. Vascular calcification is identified within the forefoot. There is remodeling of the distal aspect of the fourth metatarsal from remote fracture. There is contracture deformity of the metatarsophalangeal joints of the second and fifth digits. Soft tissue swelling without subcutaneous venous gas or osseous erosions. 2. Lateral plate and screw fixation of the distal fibula is noted. 2 medial malleolar screws are present. 3. Joint spaces of the midfoot are maintained. Electronically signed by: Sarah Leahy MD (09/25/2019 4:42 PM) [facility]
== END ==
LOC: RAD 15:38
PROVIDERS: ATTEND Emergency Medicine Undersea and Hyperbaric Medicine
DX: S92.352A Displaced fracture of fifth metatarsal bone, left foot, initial encounter for closed fracture (principal); E13.69 Other specified diabetes mellitus with other specified complication; X58.XXXA Exposure to other specified factors, initial encounter; Y92.89 Other specified places as the place of occurrence of the external cause; Y93.89 Activity, other specified; Y99.8 Other external cause status
CPT/HCPCS: 73630

== ENCOUNTER → 2019-10-13 | Outpatient (CLI) | payer MEDICARE ==
--- NOTE | 2019-10-13 08:08 | RAD ---
ELAN ART STUDY LOWER EXT LEFT, DUPLEX LOWER EXT ARTERIAL LEFT Indication: Pain. Reason: LT DIABETIC FOOT WOUND / Spl. Instructions: / History: Comparison: November 13, 2013. Procedure: Arterial pressures are measured in the arms and ankles. Real-time grayscale, color flow Doppler, and Doppler spectral waveform analysis of the arterial system of the lower extremity is performed. Findings: Left ankle: 148 mm Hg. Left arm: 132 mm Hg. Left leg ELAN: 1.1. Findings: Triphasic or biphasic waveforms within the left common femoral, deep femoral, superficial femoral, popliteal and posterior tibial arteries. Monophasic waveform within the left anterior tibial and dorsalis pedis arteries. Peroneal artery not well seen may relate to technique, slow flow or occlusion. No significant velocity elevation to suggest stenosis. IMPRESSION: 1. Monophasic waveform within the left anterior tibial and dorsalis pedis arteries, may indicate proximal stenosis. 2. Left peroneal artery not visualized. 3. Normal left ankle brachial index. Electronically signed by: Keyshawn Conte DO (10/13/2019 8:05 AM) [id number]
== END | disposition home or self-care (01) ==
LOC: US 07:00
PROVIDERS: ATTEND Emergency Medicine Undersea and Hyperbaric Medicine
DX: E11.621 Type 2 diabetes mellitus with foot ulcer (principal); L97.522 Non-pressure chronic ulcer of other part of left foot with fat layer exposed
CPT/HCPCS: 93922; 93926